=== PATIENT | female | born 1935 | race Caucasian/White ===

== ENCOUNTER 2017-04-30 18:09 | Inpatient (IN) ==
[2017-04-30] MEDS ORDERED: Ondansetron 4 MG/2 ML VIAL IVP PRN (23:59)
[2017-04-30] MEDS ORDERED: Naloxone 0.4 MG/ML INJ IVP PRN (23:59)
[2017-04-30] MEDS ORDERED: Acetaminophen 325 MG TABLET PO PRN (23:59)
[2017-05-01] MEDS ORDERED: Benzonatate 100 MG CAPSULE PO PRN
--- NOTE | 2017-05-01 00:07 | Internal Med History&Physical ---
<Jonathon Nur - Last Filed: 05/01/17 00:42> Date of Encounter: 05/01/17 Time of Encounter: 00:03 Assessment and Plan (1) Left humeral fracture Current visit: Yes Status: Acute Closed left humeral fracture involving both the greater tuberosity as well as the surgical neck. As demonstrated on left older x-ray in [facility] emergency room. Secondary to fall at home from second step of latter. Patient states it was a mechanical fall without evidence of syncopal episode. 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 We will consult orthopedics in the morning and control pain with Tylenol, Dilaudid as patient is allergic to morphine and codeine. Reaction of "feeling spacey". Qualifiers: Encounter type: initial encounter Humerus Location: proximal Fracture type: closed Fracture morphology: unspecified fracture morphology Qualified Code(s): S42.202A - Unspecified fracture of upper end of left humerus, initial encounter for closed fracture (2) Hip fracture, left Current visit: Yes Status: Acute Left hip fracture is seen on left hip x-ray at [facility] emergency room. No evidence of compartment syndrome. Distal pulses present. We will consult orthopedic surgery for evaluation and control pain as above for humeral fracture. Qualifiers: Encounter type: initial encounter Fracture type: closed Qualified Code(s) : S72.002A - Fracture of unspecified part of neck of left femur, initial encounter for closed fracture (3) COPD (chronic obstructive pulmonary disease) Current visit: Yes Status: Chronic History of COPD requiring 2 L of action at home. Patient states that it is stable with no increased shortness of breath or change in cough. Continue supplemental oxygen as needed. Qualifiers: COPD type: emphysema Emphysema type: unspecified Qualified Code(s): J43.9 - Emphysema, unspecified (4) Tremors of nervous system Current visit: Yes Status: Chronic Patient states history of essential tremors which are controlled with home Klonopin. We will continue home meds (5) Hyperthyroidism Current visit: Yes Status: Chronic History of hyperthyroid with recent thyroid ablation in March of this year. Patient states she is tolerating that well. No current complaints. We will check a TSH (6) Hypertension Current visit: Yes Status: Chronic Well-controlled at this time, will continue home meds Qualifiers: Hypertension type: essential hypertension Qualified Code(s): I10 - Essential (primary) hypertension (7) CAD (coronary artery disease) Current visit: Yes Status: Chronic Stable. No complaints of chest pain. Will hold home aspirin for possible surgical intervention tomorrow. Qualifiers: Coronary Disease-Associated Artery/Lesion type: ho-chunk artery [place] vs. transplanted heart: ho-chunk heart Associated angina: without angina Qualified Code(s): I25.10 - Atherosclerotic heart disease of ho-chunk coronary artery without angina pectoris (8) Restless leg syndrome Current visit: Yes Status: Chronic Continue home Requip. (9) DVT prophylaxis Current visit: Yes Status: Acute Will hold heparin due to possible surgical correction in the morning. Internal Medicine - H&P: HPI Chief complaint: fall, shoulder and hip pain Admitted From: Hospital to Hospital Transfer Plans for Post Hospital Care: Home History of present illness: Ms. Brunson is a 81 year old female who presents to [facility] from [facility] after sustaining a fall early this morning from the second step of a ladder while attempting to hang curtains. She states the latter moved from under her and she fell onto her left side. She denies any dizziness, lightheadedness, syncopal episodes during this and states that it was a mechanical fall. She began to experience sudden onset of pain in the left shoulder and left hip which has been constant and exacerbated with attempted movement. She has noticed decreased range of motion in those joints but denies any symptoms of numbness, tingling. She also denies any symptoms of new shortness of breath, chest pain, belly pain, new cough, weakness. She states she normally ambulates without assistance devices. She does normally use 2 L of oxygen at home for COPD. She states her only blood thinner is a daily aspirin. On review of [facility] records, patient sustained a left humeral fracture involving the surgical neck and greater tuberosity. Left hip x-ray showed mildly displaced complete basicervical left forearm fracture. Vitals were within normal limits at the time. Chest x-ray was unremarkable. CT cervical spine was unremarkable. Left knee x-ray showed degenerative changes with no acute fracture. CT head was negative for acute intracranial process. Labs showed a mildly elevated white blood cell count of 18.2 , remainder of labs grossly negative. EKG was normal sinus rhythm with a rate of 88. She was transferred to [facility] for further orthopedic management. Past Med Surg Social Fam HX - Past Medical History Medical history: asthma, COPD, GERD, hypertension, seizures, thyroid disease, TIA Psychiatric history: depression - Past Surgical History Surgical History: cholecystectomy, hysterectomy, orthopedic, other - Social History Smoking Status: Never smoker Smokeless Tobacco Status: No Alcohol use: none Drug use: none Internal Medicine - H&P: Meds Albuterol Sulfate [Ventolin Hfa] 18 gm IH Q4HR PRN 11/13/15 [History] Amlodipine Besylate/Benazepril [Lotrel 10-20 mg Capsule] 1 each PO DAILY [History] Ammonium Lactate [Lac-Hydrin Five] 113 gm TP BID 11/13/15 [History] Aspirin 81 mg PO DAILY 11/13/15 [History] Benzonatate [Tessalon] 200 mg PO TID PRN 11/13/15 [History] Budesonide/Formoterol 160/4.5 [Symbicort 160/4.5] 2 puff IH BIDR 11/13/15 [ History] Cyanocobalamin (Vitamin B-12) [Vitamin B-12] 1,000 mcg SL DAILY 11/13/15 [ History] DULoxetine [Cymbalta] 30 mg PO DAILY 11/13/15 [History] Ergocalciferol (VITAMIN D2) [Vitamin D2] 2,000 unit PO DAILY 11/13/15 [History] Fluticasone Propionate Nasal [Flonase] 50 mcg NS DAILY 11/13/15 [History] Folic Acid 0.8 mg PO DAILY 11/13/15 [History] Ipratropium [place] 30 ml NS Q6HR 11/13/15 [History] Ipratropium/Albuterol Neb [Duoneb] 3 ml IH Q6HR 11/13/15 [History] Lansoprazole [Prevacid] 30 mg PO BIDAC 11/13/15 [History] Potassium Chloride [K-Tab ER] 10 meq PO BID 11/13/15 [History] Primidone [Mysoline] 50 mg PO BID 11/13/15 [History] Ropinirole HCl [Requip] 5 mg PO HS 11/13/15 [History] Simvastatin [Zocor] 20 mg PO HS 11/13/15 [History] Tizanidine HCl [Zanaflex] 4 mg PO BID 11/13/15 [History] clonazePAM [Klonopin] 0.5 mg PO HS 11/13/15 [History] l Gasseri/B Bifidum/B Longum [[employer] Capsule] 1 each PO DAILY [History] 3 Allergy/AdvReac Type Severity Reaction Status Date / Time morphine Allergy Fainting Verified 01/13/16 07:23 propoxyphene [From Darvon] Allergy Fainting Verified 01/13/16 07:23 aspirin [ASA] AdvReac See Verified 01/13/16 07:23 Comments codeine AdvReac Fainting Verified 01/13/16 07:23 Iodinated Contrast- Oral and AdvReac "knocked Verified 01/13/16 07:23 IV Dye out" [Iodinated Contrast Media - IV Dye] pentazocine [From Talwin] AdvReac Fainting Verified 01/13/16 07:23 Sulfa (Sulfonamide AdvReac Nausea Verified 01/13/16 07:23 Antibiotics) All Systems PM: A 10-system review of systems was performed and is negative for pertinent findings except as documented above in the HPI. - Constitutional Constitutional: no anorexia, no chills, no fatigue, no fever(s), no lethargy, no malaise, no weakness - Cardiovascular Cardiovascular ROS IM: no chest pain, no dyspnea, no dyspnea on exertion, no edema, no lightheadedness, no syncope - Respiratory Respiratory: cough (Chronic), no dyspnea, no dyspnea on exertion, no wheezing, no excessive phlegm production, no change in phlegm color - Gastrointestinal Gastrointestinal: no abdominal pain, no constipation, no diarrhea, no nausea, no vomiting - Genitourinary Genitourinary: no dysuria - Musculoskeletal Musculoskeletal ROS IM: as per HPI, joint swelling, limited range of motion, no numbness, no tingling - Integumentary Integumentary IM: new lesions (Bruising) - Neurological Neurological ROS: no dizziness, no focal weakness, no frequent falls, no numbness, no tingling, no weakness - Constitutional Vitals: Temp Pulse Resp BP Pulse Ox 98.7 F 79 18 154/76 95 04/30/17 22:05 04/30/17 22:05 04/30/17 22:05 04/30/17 22:05 04/30/17 22:05 Exam: Gen.: Vitals noted. No acute distress. AAOx3. Elderly female resting comfortably in bed. Mild amount of pain HEENT: PERRL, large pupils 6 mm, equal. oropharynx clear, Normocephalic, atraumatic. Moist mucous membranes Cardiac: RRR, no murmur, +S1/S2 Pulmonary: CTA bilaterally, no wheezes, rales or rhonchi, equal chest expansion Abdomen: soft, nontender, BS noted, no guarding MSK: Unable to participate in range of motion in left shoulder and left hip secondary to pain. Joint swelling noted in left shoulder. Muscle strength intact in the left hand and arm. Right side unremarkable Extremities: no BLE edema, nontender calf, no cyanosis or clubbing Neuro: A&Ox3, states chronic numbness in lower extremities bilaterally Psych: Appropriate mood and behavior <Jann Joiner - Last Filed: 05/01/17 06:23> Date of Encounter: 05/01/17 Internal Medicine - H&P: HPI History of present illness: Ms. Brunson is a 81 year old female All Systems PM: A 10-system review of systems was performed and is negative for pertinent findings except as documented above in the HPI. - Constitutional Vitals: Temp Pulse Resp BP Pulse Ox 98.8 F 85 18 114/70 93 05/01/17 03:51 05/01/17 03:51 05/01/17 03:51 05/01/17 03:51 05/01/17 03:51 Internal Med - H&P Results - Labs CBC & Chem 7: 05/01/17 00:56 05/01/17 00:56 Labs: Short CBC 05/01/17 Range/Units 00:56 WBC 9.9 (4.3-11.1) K/mcL Hgb 11.6 (11.5-15.4) g/dL Hct 35.3 (35.3-44.9) % Plt Count 203 (140-400) K/mcL Neutrophils # 7.6 (1.6-8.9) K/mcL BMP 05/01/17 00:56 Sodium 135 L Potassium 3.9 Chloride 104 Carbon Dioxide 26 BUN 9 Creatinine 0.62 Glucose 105 H Calcium 8.4 L - Attending Attestation I have seen and examined the patient independently. I have discussed with resident physician Dr. Nur regarding the management plan. Agree with the documentation.
[2017-05-01] MEDS: *HR* OxyCODONE/APAP 5/325 TABLET PO PRN ×4 (00:11→19:30)
[2017-05-01] MEDS: 0.9 % Sodium Chloride 1,000 ML IVC SCH ×2 (00:21→11:49)
[2017-05-01 01:11] LABS: Basophils % 0.4 %; Eosinophils # 0.3 K/mcL (0.0-0.6); Eosinophils % 2.8 %; Hematocrit 35.3 % (35.3-44.9); Hemoglobin 11.6 g/dL (11.5-15.4); Immature Granulocytes % 0.5 % (0-4); Immature Platelets 2.8 % (1.1-6.1); Lymphocytes # 1.2 K/mcL (0.6-4.6); Lymphocytes % 12.1 %; Mean Corpuscular HGB Conc 32.9 g/dL (31.6-35.5); Mean Corpuscular Hemoglobin 30.1 pg (28.0-33.3); Mean Corpuscular Volume 91.5 fL (83.0-100.0); Mean Platelet Volume 9.9 fL (9.4-12.4); Monocytes # 0.8 K/mcL (0.0-1.3); Monocytes % 7.7 %; Neutrophils # 7.6 K/mcL (1.6-8.9); Platelet Count 203 K/mcL (140-400); Red Blood Count 3.86 M/mcL (3.82-4.97); Red Cell Distribution Width 14.3 % (11.5-14.5); Segmented Neutrophils % 76.5 %
[2017-05-01 01:22] LABS: BUN/Creatinine Ratio 15 (6-26); Blood Urea Nitrogen 9 mg/dL (7-20); Calcium 8.4 mg/dL (8.6-10.8); Carbon Dioxide 26 mEq/L (19-29); Chloride 104 mEq/L (98-109); Glucose 105 mg/dL (70-99); Osmolality,Calculated 279 (280-300); Potassium 3.9 mEq/L (3.5-4.5); Sodium 135 mEq/L (136-145); eGFR For African Americans > 60 (> 60); eGFR For Non-African Americans > 60 (> 60)
[2017-05-01] MEDS: rOPINIRole 3 MG, rOPINIRole 2 MG PO SCH ×2 (01:26→22:26)
[2017-05-01] MEDS: clonazePAM 0.5 MG TABLET PO SCH ×2 (01:26→22:26)
[2017-05-01] MEDS: *HR* HYDROmorphone (PF) 1 MG/ML SYRINGE IVP PRN ×4 (02:20→22:25)
[2017-05-01 06:49] LABS: Thyroid Stimulating Hormone 0.218 mcIU/mL (0.350-4.840); Triiodothyronine (T3) Free 2.56 pg/mL (1.71-3.71)
[2017-05-01] MEDS ORDERED: Lisinopril 20 MG TABLET PO SCH (09:00)
[2017-05-01] MEDS ORDERED: amLODIPine 5 MG TABLET PO SCH (09:00)
--- NOTE | 2017-05-01 12:44 | Internal Med Progress Note ---
Date of Encounter: 05/01/17 Time of Encounter: 12:44 - Constitutional Vitals: Temp Pulse Resp BP Pulse Ox 97.5 F L 87 17 111/69 94 05/01/17 11:23 05/01/17 11:23 05/01/17 11:23 05/01/17 11:23 05/01/17 11:23 Internal Medicine: Result - Labs CBC & Chem 7: 05/01/17 00:56 05/01/17 00:56 Labs: Short CBC 05/01/17 Range/Units 00:56 WBC 9.9 (4.3-11.1) K/mcL Hgb 11.6 (11.5-15.4) g/dL Hct 35.3 (35.3-44.9) % Plt Count 203 (140-400) K/mcL Neutrophils # 7.6 (1.6-8.9) K/mcL BMP 05/01/17 00:56 Sodium 135 L Potassium 3.9 Chloride 104 Carbon Dioxide 26 BUN 9 Creatinine 0.62 Glucose 105 H Calcium 8.4 L Consult Discharge Plan - Plan Referrals: Kym Valentin, REAL ESTATE INSPECTOR [Primary Care Provider] -
--- NOTE | 2017-05-01 12:46 | Event Note ---
Date of Encounter: 05/01/17 Time of Encounter: 09:00 Patient complains of pain in left upper and lower extremities. Has chronic COPD and gets short of breath with ambulation due to COPD. Denies any chest pain. No palpitations. No pedal edema reported. Orthopedics to evaluate patient later today. We will get 2-D echocardiogram for preoperative evaluation.
--- NOTE | 2017-05-01 16:15 | Orthopedic Consult Note ---
Date of Encounter: 05/01/17 Time of Encounter: 16:10 History of Present Illness Chief complaint: Left hip and shoulder pain HPI: Ms. Brunson is a 81 year old female who sustained an injury to her left hip and left shoulder in a fall in her home yesterday. This occurred off a ladder in the home. She seen initially at [facility] where x-rays revealed evidence of a left hip and a left shoulder fracture. She was transferred to [facility] for definitive management. Patient does have a significant medical history he was admitted to the hospitalist service for preoperative risk stratification prior to any potential orthopedic surgery. For complete history and physical data please refer the completed portion of the medical record. Examination reveals a uncomfortable a woman in moderate distress while lying in a hospital bed. There is marked amount of ecchymosis about the left shoulder area. She is able to move the shoulder. She does however have very limited range of motion of the left hip. Distal neurosensory exam is grossly intact. I have reviewed the x-rays of the left knee. This reveals tremendous amount of arthritic changes with osteopenia. Examination of the left hip x-rays reveals a displaced left femoral neck fracture with very severe lumbar degenerative disc and degenerative joint disease with a scoliosis. A report on the left shoulder suggests that there is a left proximal humerus fracture though these images were not sent over on disc with the patient. Impression: #1 displaced left femoral neck fracture #2 comminuted left proximal humerus fracture Recommendation: I discussed these fractures at length with the patient and the family. In regards of the left shoulder even though I do not have x-rays available for review at this time I would not recommend surgical intervention intervention at least at this time. I discussed with them that we will use a sling and evaluate the shoulder in time. If there are persistent problems with the shoulder surgical intervention can be performed at any time. In regards to the left hip however, the fracture is best treated by hemiarthroplasty to allow immediate full weightbearing ambulation. I discussed the surgical procedure as well as the potential risks and complications including not limited to bleeding , infection, blood clots, stiffness, hip dislocation and more commonly either leg length or rotational deformities. Patient and family understand and agree to proceed with surgery as outlined. Informed consent has been obtained. We will schedule her for surgery tomorrow morning. We will have to schedule her at 8:30 AM due to a echocardiogram being read no sooner than 8:00. Thank you very much for allowing me seen care for Mrs. Brunson. Sincerely, Shahid Vargas,DO Past Med Surg Social Fam HX - Past Medical History Medical history: asthma, COPD, GERD, hypertension, seizures, thyroid disease, TIA Psychiatric history: depression - Past Surgical History Surgical History: cholecystectomy, hysterectomy, orthopedic, other - Social History Smoking Status: Never smoker Smokeless Tobacco Status: No Alcohol use: none Drug use: none Medications and Allergies Albuterol Sulfate [Ventolin Hfa] 2 puff IH Q4HR PRN 11/13/15 [History] Amlodipine Besylate/Benazepril [Lotrel 10-20 mg Capsule] 1 cap PO DAILY [History] Aspirin 81 mg PO DAILY 11/13/15 [History] Benzonatate [Tessalon] 200 mg PO TID PRN 11/13/15 [History] Budesonide/Formoterol 160/4.5 [Symbicort 160/4.5] 2 puff IH BIDR 11/13/15 [ History] Cyanocobalamin (Vitamin B-12) [Vitamin B-12] 1,000 mcg SL DAILY 11/13/15 [ History] DULoxetine [Cymbalta] 30 mg PO DAILY 11/13/15 [History] Ergocalciferol (VITAMIN D2) [Vitamin D2] 2,000 unit PO DAILY 11/13/15 [History] Fluticasone Propionate Nasal [Flonase] 50 mcg NS DAILY 11/13/15 [History] Folic Acid 0.8 mg PO DAILY 11/13/15 [History] Ipratropium/Albuterol Neb [Duoneb] 3 ml IH Q6HR 11/13/15 [History] Lansoprazole [Prevacid] 30 mg PO BIDAC 11/13/15 [History] Potassium Chloride [K-Tab ER] 10 meq PO BID 11/13/15 [History] Primidone [Mysoline] 50 mg PO BID 11/13/15 [History] Ropinirole HCl [Requip] 5 mg PO HS 11/13/15 [History] Simvastatin [Zocor] 20 mg PO HS 11/13/15 [History] clonazePAM [Klonopin] 0.5 mg PO HS 11/13/15 [History] l Gasseri/B Bifidum/B Longum [[place] Capsule] 1 cap PO DAILY 06/29 [History] Amitriptyline HCl 50 mg PO HS 05/01/17 [History] Levofloxacin [Levaquin] 500 mg PO DAILY 05/01/17 [History] Loratadine [Allergy Relief] 10 mg PO DAILY 05/01/17 [History] 3 Allergy/AdvReac Type Severity Reaction Status Date / Time morphine Allergy Fainting Verified 01/13/16 07:23 propoxyphene [From Darvon] Allergy Fainting Verified 01/13/16 07:23 aspirin [ASA] AdvReac See Verified 01/13/16 07:23 Comments codeine AdvReac Fainting Verified 01/13/16 07:23 Iodinated Contrast- Oral and AdvReac "knocked Verified 01/13/16 07:23 IV Dye out" [Iodinated Contrast Media - IV Dye] pentazocine [From Talwin] AdvReac Fainting Verified 01/13/16 07:23 Sulfa (Sulfonamide AdvReac Nausea Verified 01/13/16 07:23 Antibiotics) All Systems Reviewed: A 10-system review of systems was performed and is negative for pertinent findings except as documented above in the HPI. Physical Exam - Constitutional Vitals: Temp Pulse Resp BP Pulse Ox 97.5 F L 87 17 111/69 94 05/01/17 11:23 05/01/17 11:23 05/01/17 11:23 05/01/17 11:23 05/01/17 11:23 Results - Labs Result Diagrams: 05/01/17 00:56 05/01/17 00:56 Labs: Abnormal lab results Sodium 135 mEq/L (136-145) L 05/01/17 00:56 Glucose 105 mg/dL (70-99) H 05/01/17 00:56 POC Glucose 135 (58-89) H 05/01/17 11:30 Calculated Osmolality 279 (280-300) L 05/01/17 00:56 Calcium 8.4 mg/dL (8.6-10.8) L 05/01/17 00:56 TSH 0.218 mcIU/mL (0.350-4.840) L 05/01/17 00:56 H & H 05/01/17 Range/Units 00:56 Hgb 11.6 (11.5-15.4) g/dL Hct 35.3 (35.3-44.9) % All other labs normal. - Diagnostic results Shoulder x-ray: report reviewed Hip x-ray: image reviewed Knee x-ray: image reviewed Consult Discharge Plan - Plan Referrals: Kym Valentin CNP [Primary Care Provider] -
[2017-05-01] MEDS ORDERED: NON-FORMULARY MEDICATION 1 EACH EACH (Ropinirole Hcl [Requip] 5 MG) PO SCH (21:00)
[2017-05-02] MEDS: 0.9 % Sodium Chloride 1,000 ML IVC SCH (00:43)
[2017-05-02] MEDS: *HR* OxyCODONE/APAP 5/325 TABLET PO PRN ×2 (02:31→22:03)
[2017-05-02] MEDS: *HR* HYDROmorphone (PF) 1 MG/ML SYRINGE IVP PRN (04:33)
[2017-05-02 05:20] LABS: INR 1.2; Prothrombin Time 12.6 Seconds (9.4-12.1)
[2017-05-02 05:22] LABS: Activated Partial Thrombo Time 28.9 Seconds (26.0-36.0)
--- NOTE | 2017-05-02 07:13 | Anesthesia Evaluation PreOp ---
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: Seizures, TIA Other Medical History: Diabetes Type II, Thyroid, GERD, Other (tremors) Anesthesia History: No Prior Anesthetic Complications, Past Anesthesia (Foot, Hyst, Back sx, Bladder, GB) : No Alcohol Use: none Drug use: none Medications and Allergies Albuterol Sulfate [Ventolin Hfa] 2 puff IH Q4HR PRN 11/13/15 [History] Amlodipine Besylate/Benazepril [Lotrel 10-20 mg Capsule] 1 cap PO DAILY [History] Aspirin 81 mg PO DAILY 11/13/15 [History] Benzonatate [Tessalon] 200 mg PO TID PRN 11/13/15 [History] Budesonide/Formoterol 160/4.5 [Symbicort 160/4.5] 2 puff IH BIDR 11/13/15 [ History] Cyanocobalamin (Vitamin B-12) [Vitamin B-12] 1,000 mcg SL DAILY 11/13/15 [ History] DULoxetine [Cymbalta] 30 mg PO DAILY 11/13/15 [History] Ergocalciferol (VITAMIN D2) [Vitamin D2] 2,000 unit PO DAILY 11/13/15 [History] Fluticasone Propionate Nasal [Flonase] 50 mcg NS DAILY 11/13/15 [History] Folic Acid 0.8 mg PO DAILY 11/13/15 [History] Ipratropium/Albuterol Neb [Duoneb] 3 ml IH Q6HR 11/13/15 [History] Lansoprazole [Prevacid] 30 mg PO BIDAC 11/13/15 [History] Potassium Chloride [K-Tab ER] 10 meq PO BID 11/13/15 [History] Primidone [Mysoline] 50 mg PO BID 11/13/15 [History] Ropinirole HCl [Requip] 5 mg PO HS 11/13/15 [History] Simvastatin [Zocor] 20 mg PO HS 11/13/15 [History] clonazePAM [Klonopin] 0.5 mg PO HS 11/13/15 [History] l Gasseri/B Bifidum/B Longum [[employer] Capsule] 1 cap PO DAILY 06/29 [History] Amitriptyline HCl 50 mg PO HS 05/01/17 [History] Levofloxacin [Levaquin] 500 mg PO DAILY 05/01/17 [History] Loratadine [Allergy Relief] 10 mg PO DAILY 05/01/17 [History] 3 Allergy/AdvReac Type Severity Reaction Status Date / Time morphine Allergy Fainting Verified 01/13/16 07:23 propoxyphene [From Darvon] Allergy Fainting Verified 01/13/16 07:23 aspirin [ASA] AdvReac See Verified 01/13/16 07:23 Comments codeine AdvReac Fainting Verified 01/13/16 07:23 Iodinated Contrast- Oral and AdvReac "knocked Verified 01/13/16 07:23 IV Dye out" [Iodinated Contrast Media - IV Dye] pentazocine [From Talwin] AdvReac Fainting Verified 01/13/16 07:23 Sulfa (Sulfonamide AdvReac Nausea Verified 01/13/16 07:23 Antibiotics) - Meds/Allergy Pre-op Review Medications Reviewed: Yes Allergies Reviewed: Yes Beta Blockers on Current Med List: No Anesthesia Results - Labs 05/01/17 00:56 05/01/17 00:56 Echo 05/02/2017 Ef 55-60% Mild PHTN - Imaging EKG: image reviewed (SR) Anesthesia Exam O2 Sat Weight 88.2 kg O2 Sat by Pulse Oximetry 96 O2 Sat by Pulse Oximetry 95 O2 Sat by Pulse Oximetry 95 O2 Sat by Pulse Oximetry 95 O2 Sat by Pulse Oximetry 94 Vital Signs Temp Pulse Resp BP Pulse Ox 98.7 F 79 18 154/76 95 04/30/17 22:05 04/30/17 22:05 04/30/17 22:05 04/30/17 22:05 04/30/17 22:05 Vital Signs/O2 Sat, Most Current Temp Pulse Resp BP Pulse Ox 97.9 F 72 16 133/73 96 05/02/17 03:53 05/02/17 03:53 05/02/17 03:53 05/02/17 03:53 05/02/17 03:53 Height: 5'7'' Weight: 194# NPO (# of Hours): > 8 hrs Pain Scale: 0 Pain Scale Used: Numeric (1 - 10) - HEENT Pupil (Motor): Pupils equal, EOMI Mallampati: I Teeth: Edentulous Oral Opening: Greater than 3 - TICKET DISPENSER CHANGER LOC: Oriented TICKET DISPENSER CHANGER Motor: Normal RUE, Normal LUE, Normal RLE, Normal LLE, Normal Face TICKET DISPENSER CHANGER Sensory: Normal: RUE, LUE, RLE, LLE, Face - Cardiac Rhythm: Regular Murmur: None JVD: No Carotid Bruit: No - Pulmonary Breath Sounds: bilateral Clear Respiratory Effort: Symmetrical Anesthesia Assess/Plan ASA Score: 4 Modified Michael Scale for Level of Consciousness: Cooperative, oriented, and tranquil Anesthetic Plan: General Autologous Blood: Yes Monitoring Plan: Standard Monitors Recovery Plan: PACU
[2017-05-02] MEDS ORDERED: *HR* HYDROmorphone (PF) 1 MG/ML SYRINGE IVP PRN ×2 (07:24→13:30)
[2017-05-02] MEDS ORDERED: Ondansetron 4 MG/2 ML VIAL IVP ONE ×2 (07:24→13:30)
[2017-05-02] MEDS ORDERED: *HR* Promethazine 25 MG/ML VIAL IVP PRN ×2 (07:24→13:30)
[2017-05-02] MEDS ORDERED: Albuterol 2.5 MG/3 ML NEBULIZER IH ONE (07:24)
[2017-05-02] MEDS ORDERED: *HR* Labetalol 20 MG/4 ML SYRINGE IVP PRN ×2 (07:24→13:30)
[2017-05-02] MEDS ORDERED: *HR* Midazolam HCl 2 MG/2 ML VIAL ONE (07:48)
[2017-05-02] MEDS ORDERED: *HR* FentaNYL (PF) 100 MCG/2 ML VIAL ONE (07:48)
[2017-05-02] MEDS ORDERED: *HR* Propofol 200 MG/20 ML VIAL IVP ONE (07:48)
[2017-05-02] MEDS ORDERED: Dexamethasone 4 MG/ML VIAL ONE (07:51)
[2017-05-02] MEDS ORDERED: Lidocaine -MPF 2% 2 ML VIAL ONE (07:51)
[2017-05-02] MEDS ORDERED: *HR* Succinylcholine 200 MG/10 ML VIAL IVP ONE (07:51)
[2017-05-02] MEDS ORDERED: Ondansetron 4 MG/2 ML VIAL ONE (07:51)
[2017-05-02] MEDS ORDERED: *HR* Rocuronium Bromide 50 MG/5 ML VIAL ONE (07:51)
[2017-05-02] MEDS ORDERED: ceFAZolin 2,000 MG in Water for inj. (sterile) 20 ML IVP ONE (08:30)
[2017-05-02] MEDS ORDERED: *HR* Phenylephrine 10 MG/ML VIAL ONE (09:42)
--- NOTE | 2017-05-02 11:04 | Internal Med Progress Note ---
Date of Encounter: 05/02/17 Time of Encounter: 08:35 - Assessment and plan (1) Hip fracture, left Current Visit: Yes Status: Acute Assessment and plan: Plan for surgery this morning. We will follow. She will be evaluated by physical therapy after surgery and will most likely need placement to skilled rehabilitation. Qualifiers: Encounter type: initial encounter Fracture type: closed Qualified Code(s) : S72.002A - Fracture of unspecified part of neck of left femur, initial encounter for closed fracture (2) Left humeral fracture Current Visit: Yes Status: Acute Assessment and plan: Plan for surgery later this morning. We will follow. PTOT consult post surgery. Pain control. Qualifiers: Encounter type: initial encounter Humerus Location: proximal Fracture type: closed Fracture morphology: unspecified fracture morphology Qualified Code(s): S42.202A - Unspecified fracture of upper end of left humerus, initial encounter for closed fracture (3) CAD (coronary artery disease) Current Visit: Yes Status: Chronic Assessment and plan: No chest pain. 2-D echocardiogram done today shows normal ejection fraction of 55-60%. Patient at low risk for cardiac complications from surgery. Qualifiers: Coronary Disease-Associated Artery/Lesion type: [place] artery [place] vs. transplanted heart: [place] heart Associated angina: without angina Qualified Code(s): I25.10 - Atherosclerotic heart disease of [place] coronary artery without angina pectoris (4) COPD (chronic obstructive pulmonary disease) Current Visit: Yes Status: Chronic Assessment and plan: Chronic. Not in acute exacerbation. Continue O2 supplementation. On bronchodilators as needed Qualifiers: COPD type: emphysema Emphysema type: unspecified Qualified Code(s): J43.9 - Emphysema, unspecified (5) DVT prophylaxis Current Visit: Yes Status: Acute Assessment and plan: Will place patient on subcutaneous Lovenox post surgery (6) Hypertension Current Visit: Yes Status: Chronic Qualifiers: Hypertension type: essential hypertension Qualified Code(s): I10 - Essential (primary) hypertension (7) Hyperthyroidism Current Visit: Yes Status: Chronic (8) Restless leg syndrome Current Visit: Yes Status: Chronic Assessment and plan: Continue ropinirole - Subjective Interval history: Patient is awake and alert. Awaiting surgery is planned for this morning. Denies any chest pain. Has shortness of breath which is chronic and improves with O2 supplementation. No chest pain. Continues to have pain mainly in the left upper extremity and lower extremity related to her fracture. Controlled with narcotic pain medications that she is receiving. - Constitutional Vitals: Temp Pulse Resp BP Pulse Ox 98.2 F 78 16 137/68 98 05/02/17 06:30 05/02/17 06:30 05/02/17 06:30 05/02/17 06:30 05/02/17 06:30 General appearance: Present: cooperative, A&O X 3 - Eye Eye exam: Present: EOMI, PERRL, conjuntiva pink, sclera anicteric - Respiratory Respiratory exam: Present: CTAB. Absent: accessory muscle use, rales, rhonchi, wheezes - Cardiovascular Cardiovascular exam: Present: RRR, +S1, +S2. Absent: diastolic murmur, gallop, rubs, systolic murmur - GI/Abdominal GI/Abdominal exam: Present: normal bowel sounds, soft, no peritoneal signs. Absent: distended, tenderness - Extremities Exam Extremities exam: Present: tenderness (Left upper arm and at left hip region), warm, radial pulses palpable and symmetrical. Absent: calf tenderness, cyanotic , pedal edema - Neurological Exam Neurological exam: Present: alert, oriented X3, no focal deficits. Absent: facial droop, speech deficit Internal Medicine: Result - Labs CBC & Chem 7: 05/01/17 00:56 05/01/17 00:56 - ABG Interpretation ABG results: PT/INR, D-dimer PT 12.6 Seconds (9.4-12.1) H 05/02/17 04:20 - EKG Interpretation EKG shows normal: sinus rhythm - Prior EKG Data EKG comments: 05/02/17 11:05 Normal sinus rhythm with no acute ST segment changes - Impressions Impressions Echocardiogram 05/02/17 11:21 Impressions: LVEF 55-60%. Mild concentric left ventricular hypertrophy. Normal right ventricular structure and function. Mild mitral regurgitation. Mild tricuspid regurgitation. Mild pulmonary hypertension. Aneurysmal interatrial septum. No PFO with color flow imaging. Left Ventricular Wall Motion: Rest Echo Findings All wall segments showed normal motion. Findings: Study Quality * Technically adequate exam. ECG Findings * Normal sinus rhythm. Left Ventricle * Mild concentric left ventricular hypertrophy. * Normal LV size. * LVEF 55-60%. * Indeterminate diastolic function. Reduced Med TD velocity, valsalva not performed. Right Ventricle * Normal right ventricular structure and function. Left Atrium * Normal left atrial size. Right Atrium * Normal right atrial size. Aortic Valve * No aortic regurgitation. * Aortic valve not well visualized. * No aortic stenosis. Mitral Valve * Normal mitral valve structure. * No mitral stenosis. * Mild mitral regurgitation. Tricuspid Valve * Tricuspid valve not well visualized. * Mild tricuspid regurgitation. * Estimated RA pressure is 3 mmHg. * Estimated RVSP is 39 mmHg. * Mild pulmonary hypertension. Pulmonic Valve * Pulmonic valve is not well visualized. * No pulmonic stenosis. * No pulmonic regurgitation. Pulmonary Artery * Pulmonary artery not well visualized. Aorta * Normally sized aortic root. Pericardium * There is no pericardial effusion present. Interatrial Septum * No evidence of PFO by color Doppler. * Aneurysmal interatrial septal. IVC * Normal IVC dimensions and inspiratory collapse. - VTE Documentation of Mechanical Device: Intermittent pneumatic compression device Consult Discharge Plan - Plan Referrals: Kym Valentin CNP [Primary Care Provider] -
[2017-05-02] MEDS ORDERED: Ipratropium/Albuterol Neb 3 ML IH PRN ×2 (11:07→13:30)
--- NOTE | 2017-05-02 12:01 | Operative Note ---
Date of procedure: 05/02/17 Pre-op diagnosis: Left femoral neck fracture Post-op diagnosis: same Procedure: Hemiarthroplasty left hip Implants: Cemented [place] size 14 LD/FX femoral component with a 13 mm distal centralizer , a +8 mm neck adapter and a 48 mm unipolar endoprosthesis Complications: None Anesthesia: BRYAN Surgeon: Shahid Vargas Estimated blood loss (cc): 200 Condition: stable Disposition: PACU Procedure in Detail: Gross findings: Preoperative x-rays revealed a displaced left femoral neck fracture in this 81-year-old woman. Mild arthritic changes. Mild osteopenia. Intraoperative findings were as anticipated with a somewhat comminuted left femoral neck fracture. A cemented unipolar hemiarthroplasty was performed without complicating features. After placement of the prosthesis a stable well- functioning left hip was noted. Procedure: Patient is taken the operating room and while in the hospital bed was administered general anesthesia. The patient was then transferred to the operative table. She was then placed a lateral Recumbent position with the left side up and stabilized with a lateral hip stabilizing system. All pressure points were well-padded. Left hip was now prepped and draped in normal standard fashion for surgery. A left lateral hip incision was created. Dissection was carried to the abundant adipose tissue down the level of fascia noble which is now cleared and split the length of the incision. Charnley retractor was placed. The anterior abductors were taken down off the trochanter in a subperiosteal manner utilizing electrocautery knife. These were tagged with #2 FiberWire suture for traction later repair. Capsule was then likewise taken down off the trochanter and superior capsulotomy was made at the level the acetabulum. Fracture hematoma was evacuated. Femoral neck osteotomy was made. Head was now removed from the acetabulum and sized up to probably a 48. Acetabulum was now cleaned of clot and debris with pulsatile lavage and mechanical debridement. Final trialing of the acetabulum was performed with a 48 mm head selected. Sponge was packed in the acetabulum and attention was turned to the femur. Box osteotome was utilized to open up the medial trochanter. 2 number reamer was passed on the femoral canal. Canal was then sequentially rasped up to and including a size 14. The 14 rasp was then used to ream the medial calcar. Trialing was performed and a plus 8 millimeterNeck length was selected. At this time all trial components were removed. Cement restrictor was placed distally. Canal was irrigated with pulsatile lavage and then dried with a combination of suction and sponges. At this time at the back table cement was mixed and at appropriate time the cement was instilled into the femur which was filled in a retrograde fashion and then pressurized proximally for several seconds. The prosthesis was then placed into the cement and impacted until it sat with the collar on the medial calcar. It was placed in a neutral position. Excess cement was trimmed away and compression was maintained upon the implants until the cement had fully hardened. Final cement cleanup and washout of the hip was performed. This is followed by cleaning and drying the Ray taper on the stem followed by placing the adapter and head and impacting it with 3 sharp blows of the mallet. Hip was now reduced. Stable reduction was noted. With implants in place attention was now paid to closure. Arthrotomy was closed with #2 FiberWire. The abductors were then repaired to the trochanter with the previously placed #2 FiberWire and reinforced with #2 Quill. Fascia noble was then closed with several [id number] stitch of #2 FiberWire followed by running #2 Quill. Deep subcutaneous tissue was closed with running #2 Quill. Medius obtained initially was closed with multiple inverted interrupted 2-0 undyed Vicryl followed by skin approximation with a running septic or stage III strata fixed. Skin glue was applied. Foam was now applied and secured. Patient was placed into an abduction pillow. Patient was then transferred from the operating room table in a hospital bed, awakened from anesthesia and transferred to the postanesthesia care unit in stable and satisfactory condition. All sponge and needle evidence for counts are correct. The femoral head was sent to pathology at the request of the staff.
[2017-05-02] MEDS ORDERED: Acetaminophen IV 1,000 MG/100 ML INFUS..BTL IVPB ONE (12:45)
[2017-05-02] MEDS ORDERED: Acetaminophen IV 1,000 MG/100 ML INFUS..BTL ONE (12:47)
--- NOTE | 2017-05-02 12:57 | Anesthesia Evaluation Post Op ---
Date of Encounter: 05/02/17 Time of Encounter: 12:56 - Vital Signs Vital Signs: Vital Signs/O2 Sat, Most Current Temp Pulse Resp BP Pulse Ox 99.4 F 105 24 126/79 91 05/02/17 12:41 05/02/17 12:51 05/02/17 12:51 05/02/17 12:41 05/02/17 12:51 - Lungs Lungs: Clear Ascult./Percussion - Airway Airway: Non-obstructed - Cardiovascular Regular Rate - Mental Status Mental Status: Alert & Oriented, Answers Appropriately - Pain Pain Scale: 0 Pain Scale used: Numeric (1 - 10) - Nausea Vomiting Nausea Vomiting: Not Present - Hydration Hydration: NPO, Herzog catheter - Discharge PostOp Status: Transfer Patient to floor
[2017-05-02] MEDS ORDERED: 0.9 % Sodium Chloride 1,000 ML IVC SCH (13:30)
[2017-05-02] MEDS ORDERED: Acetaminophen 325 MG TABLET PO PRN (13:30)
[2017-05-02] MEDS ORDERED: Naloxone 0.4 MG/ML INJ IVP PRN (13:30)
[2017-05-02] MEDS ORDERED: Benzonatate 100 MG CAPSULE PO PRN (13:30)
[2017-05-02] MEDS ORDERED: CeFAZolin Syringe 2,000MG/20 ML SYR IVPB SCH (16:00)
[2017-05-02] MEDS: CeFAZolin Premix DUPLEX 2,000 MG/50 ML BAG IVPB SCH (16:43)
[2017-05-02] MEDS: rOPINIRole 3 MG, rOPINIRole 2 MG PO SCH (20:17)
[2017-05-02] MEDS: clonazePAM 0.5 MG TABLET PO SCH (20:18)
[2017-05-03] MEDS: CeFAZolin Premix DUPLEX 2,000 MG/50 ML BAG IVPB SCH (00:17)
[2017-05-03] MEDS: *HR* HYDROmorphone (PF) 1 MG/ML SYRINGE IVP PRN ×2 (02:12→11:06)
[2017-05-03] MEDS: *HR* Enoxaparin 30 MG/0.3 ML SYRINGE SQ SCH ×2 (06:11→16:31)
[2017-05-03] MEDS: *HR* OxyCODONE/APAP 5/325 TABLET PO PRN ×3 (06:11→13:50)
[2017-05-03] MEDS: amLODIPine 5 MG TABLET PO SCH (08:00)
[2017-05-03] MEDS: Lisinopril 20 MG TABLET PO SCH (08:00)
[2017-05-03 08:29] LABS: Basophils % 0.2 %; Eosinophils # 0.4 K/mcL (0.0-0.6); Eosinophils % 3.1 %; Hematocrit 28.6 % (35.3-44.9); Immature Granulocytes % 0.5 % (0-4); Lymphocytes # 1.3 K/mcL (0.6-4.6); Lymphocytes % 9.5 %; Mean Corpuscular HGB Conc 31.8 g/dL (31.6-35.5); Mean Corpuscular Hemoglobin 30.1 pg (28.0-33.3); Mean Corpuscular Volume 94.7 fL (83.0-100.0); Mean Platelet Volume 10.6 fL (9.4-12.4); Monocytes % 7.3 %; Neutrophils # 11.1 K/mcL (1.6-8.9); Platelet Count 146 K/mcL (140-400); Red Blood Count 3.02 M/mcL (3.82-4.97); Red Cell Distribution Width 14.3 % (11.5-14.5); Segmented Neutrophils % 79.4 %
[2017-05-03 08:33] LABS: Hemoglobin 9.1 g/dL (11.5-15.4)
--- NOTE | 2017-05-03 13:10 | Electrocardiograph Report ---
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
[2017-05-03] MEDS ORDERED: *HR* HYDROmorphone (PF) 1 MG/ML SYRINGE IVP PRN (15:26)
--- NOTE | 2017-05-03 15:28 | Internal Med Progress Note ---
Date of Encounter: 05/03/17 Time of Encounter: 08:50 - Assessment and plan (1) Hip fracture, left Current Visit: Yes Status: Acute Assessment and plan: Status post left hip hemiarthroplasty. Postoperative day 1. Continues to be in significant amount of pain. We will increase Percocet dosage and also increased dosage of intravenous Dilaudid as needed. High risk for complications. Physical therapy evaluation pending. Patient will most likely need placement to skilled rehabilitation. Qualifiers: Encounter type: initial encounter Fracture type: closed Qualified Code(s) : S72.002A - Fracture of unspecified part of neck of left femur, initial encounter for closed fracture (2) Left humeral fracture Current Visit: Yes Status: Acute Assessment and plan: Conservative management per orthopedic recommendations. Qualifiers: Encounter type: initial encounter Humerus Location: proximal Fracture type: closed Fracture morphology: unspecified fracture morphology Qualified Code(s): S42.202A - Unspecified fracture of upper end of left humerus, initial encounter for closed fracture (3) CAD (coronary artery disease) Current Visit: Yes Status: Chronic Assessment and plan: no chest pain. We will resume aspirin Qualifiers: Coronary Disease-Associated Artery/Lesion type: [place] artery [place] vs. transplanted heart: [place] heart Associated angina: without angina Qualified Code(s): I25.10 - Atherosclerotic heart disease of [place] coronary artery without angina pectoris (4) COPD (chronic obstructive pulmonary disease) Current Visit: Yes Status: Chronic Assessment and plan: No acute exacerbation. Qualifiers: COPD type: emphysema Emphysema type: unspecified Qualified Code(s): J43.9 - Emphysema, unspecified (5) DVT prophylaxis Current Visit: Yes Status: Acute Assessment and plan: On Lovenox (6) Hypertension Current Visit: Yes Status: Chronic Assessment and plan: Blood pressure is well controlled Qualifiers: Hypertension type: essential hypertension Qualified Code(s): I10 - Essential (primary) hypertension (7) Hyperthyroidism Current Visit: Yes Status: Chronic Assessment and plan: Well controlled. (8) Restless leg syndrome Current Visit: Yes Status: Chronic Assessment and plan: Continue ropinirole (9) Chronic respiratory failure with hypoxia Current Visit: Yes Status: Chronic Assessment and plan: Continue O2 supplementation - Subjective Interval history: Patient is lying in bed. Underwent surgery yesterday and is doing well postprocedure. Does continue to have severe pain at left hip. Pain at left shoulder is much better controlled. Denies any fever or chills. No shortness of breath at this time. - Constitutional Vitals: Temp Pulse Resp BP Pulse Ox 98.2 F 100 16 113/70 94 05/03/17 12:06 05/03/17 14:00 05/03/17 12:06 05/03/17 12:06 05/03/17 14:00 General appearance: Present: cooperative, A&O X 3, answers questions appropriately Exam: Moderate distress - Neck Neck exam general surgery: Present: supple, trachea midline. Absent: lymphadenopathy - Cardiovascular Cardiovascular exam: Present: RRR, +S1, +S2. Absent: diastolic murmur, gallop, rubs, systolic murmur - GI/Abdominal GI/Abdominal exam: Present: normal bowel sounds, soft, no peritoneal signs. Absent: distended, tenderness - Extremities Exam Extremities exam: Present: tenderness (Left hip region), warm, radial pulses palpable and symmetrical. Absent: calf tenderness, cyanotic, pedal edema Additional comments: Left upper extremity in sling - Neurological Exam Neurological exam: Present: alert, oriented X3, no focal deficits. Absent: facial droop, speech deficit Internal Medicine: Result - Labs CBC & Chem 7: 05/03/17 08:22 05/01/17 00:56 Labs: Short CBC 05/03/17 Range/Units 08:22 WBC 14.0 H (4.3-11.1) K/mcL Hgb 9.1 L D (11.5-15.4) g/dL Hct 28.6 L (35.3-44.9) % Plt Count 146 (140-400) K/mcL Neutrophils # 11.1 H (1.6-8.9) K/mcL - ABG Interpretation ABG results: PT/INR, D-dimer PT 12.6 Seconds (9.4-12.1) H 05/02/17 04:20 - VTE Documentation of Mechanical Device: Venous foot pump, device Consult Discharge Plan - Plan Referrals: Kym Valentin, EMBLEM FUSER TENDER [Primary Care Provider] -
[2017-05-03] MEDS: *HR* OxyCODONE/APAP 10/325 TABLET PO PRN (16:30)
--- NOTE | 2017-05-03 18:31 | Orthopedics Progress Note ---
Date of Encounter: 05/03/17 Time of Encounter: 18:29 Subjective Principal diagnosis: Left hip and left proximal humerus fractures Interval history: Patient is postoperative day #1 from a hemiarthroplasty of her left hip. She is overall doing quite well. She is having anticipated pain in and about the hip. Shoulder feels much better. Vital signs are stable. Patient is afebrile. Hip dressing is with only minor spotting. There is some swelling in the leg. Left upper extremity shows fair amount of ecchymosis in the upper arm area. Hemoglobin is 9.1. Platelet count is normal. White cell count is mildly elevated at 14. Impression: #1. POD #1 hemiarthroplasty left hip #2. Left proximal humerus fracture Recommendation: We will continue with ambulation training and weightbearing as tolerated on the left lower extremity with total hip arthroplasty precautions being followed. In regards to her left shoulder she can start some gentle range of motion activities she can feed herself to care of herself with the arm but no heavy lifting nor weightbearing across the shoulder. He made to discharge patient to a [facility] facility for rehabilitation. Orthopedic status is stable. Can discharge at your discretion when medically stable. Objective Vital signs: Vital Signs Temp Pulse Resp BP Pulse Ox 05/03/17 16:25 98.6 F 100 15 124/75 96 05/03/17 14:00 100 94 05/03/17 12:06 98.2 F 105 16 113/70 92 05/03/17 08:27 98.6 F 98 15 127/71 96 05/03/17 04:08 97.9 F 96 17 128/78 93 05/02/17 23:59 98.1 F 96 16 130/75 94 05/02/17 19:52 98.3 F 101 18 126/73 94 Intake and Output 05/03/17 05/03/17 05/03/17 07:59 15:59 23:59 Output Total 400 / 400 Balance -400 / -400 Output: Catheter 400 / 400 Other: Blood Glucose* 187 135 - Labs CBC & BMP: 05/03/17 08:22 05/01/17 00:56 Labs: Abnormal lab results WBC 14.0 K/mcL (4.3-11.1) H 05/03/17 08:22 RBC 3.02 M/mcL (3.82-4.97) L 05/03/17 08:22 Hgb 9.1 g/dL (11.5-15.4) L D 05/03/17 08:22 Hct 28.6 % (35.3-44.9) L 05/03/17 08:22 Neutrophils # 11.1 K/mcL (1.6-8.9) H 05/03/17 08:22 PT 12.6 Seconds (9.4-12.1) H 05/02/17 04:20 Sodium 135 mEq/L (136-145) L 05/01/17 00:56 Glucose 105 mg/dL (70-99) H 05/01/17 00:56 POC Glucose 135 (58-89) H 05/03/17 16:29 Calculated Osmolality 279 (280-300) L 05/01/17 00:56 Calcium 8.4 mg/dL (8.6-10.8) L 05/01/17 00:56 TSH 0.218 mcIU/mL (0.350-4.840) L 05/01/17 00:56 - VTE Documentation of Mechanical Device: Venous foot pump, device Consult Discharge Plan - Plan Referrals: Kym Valentin, REMOTE CONTROL MIRROR INSTALLER [Primary Care Provider] -
[2017-05-03] MEDS: Ondansetron 4 MG/2 ML VIAL IVP PRN (20:26)
[2017-05-03] MEDS: clonazePAM 0.5 MG TABLET PO SCH (20:38)
[2017-05-03] MEDS: rOPINIRole 3 MG, rOPINIRole 2 MG PO SCH (20:39)
[2017-05-03] MEDS: Primidone 50 MG TABLET PO SCH (20:39)
[2017-05-03] MEDS: Budesonide/Formoterol 160/4.5 MDI IH SCH (22:24)
[2017-05-03] MEDS ORDERED: Ondansetron 4 MG/2 ML VIAL IVP ONE (23:25)
[2017-05-04 05:04] LABS: Basophils % 0.2 %; Eosinophils # 0.1 K/mcL (0.0-0.6); Eosinophils % 0.9 %; Hematocrit 28.4 % (35.3-44.9); Hemoglobin 8.9 g/dL (11.5-15.4); Immature Granulocytes % 1.1 % (0-4); Lymphocytes # 1.2 K/mcL (0.6-4.6); Lymphocytes % 7.6 %; Mean Corpuscular HGB Conc 31.3 g/dL (31.6-35.5); Mean Corpuscular Hemoglobin 29.8 pg (28.0-33.3); Mean Platelet Volume 11.4 fL (9.4-12.4); Monocytes # 1.3 K/mcL (0.0-1.3); Monocytes % 8.4 %; Neutrophils # 12.4 K/mcL (1.6-8.9); Platelet Count 136 K/mcL (140-400); Red Blood Count 2.99 M/mcL (3.82-4.97); Red Cell Distribution Width 14.3 % (11.5-14.5); Segmented Neutrophils % 81.8 %
[2017-05-04] MEDS: *HR* Enoxaparin 30 MG/0.3 ML SYRINGE SQ SCH ×2 (05:57→17:39)
[2017-05-04] MEDS: Primidone 50 MG TABLET PO SCH ×2 (09:19→21:16)
[2017-05-04] MEDS: Folic Acid 1 MG TABLET PO SCH (09:20)
[2017-05-04] MEDS: amLODIPine 5 MG TABLET PO SCH (09:20)
[2017-05-04] MEDS: Aspirin 81 MG TAB.CHEW PO SCH (09:20)
[2017-05-04] MEDS: Ondansetron 4 MG/2 ML VIAL IVP PRN (09:20)
[2017-05-04] MEDS: Lisinopril 20 MG TABLET PO SCH (09:20)
[2017-05-04] MEDS: Budesonide/Formoterol 160/4.5 MDI IH SCH ×2 (10:36→21:59)
--- NOTE | 2017-05-04 13:17 | Orthopedics Progress Note ---
Date of Encounter: 05/04/17 Time of Encounter: 13:14 Subjective Principal diagnosis: Left hip and left proximal humerus fractures Interval history: 05/03/2017 Patient is postoperative day #1 from a hemiarthroplasty of her left hip. She is overall doing quite well. She is having anticipated pain in and about the hip. Shoulder feels much better. Vital signs are stable. Patient is afebrile. Hip dressing is with only minor spotting. There is some swelling in the leg. Left upper extremity shows fair amount of ecchymosis in the upper arm area. Hemoglobin is 9.1. Platelet count is normal. White cell count is mildly elevated at 14. Impression: #1. POD #1 hemiarthroplasty left hip #2. Left proximal humerus fracture Recommendation: We will continue with ambulation training and weightbearing as tolerated on the left lower extremity with total hip arthroplasty precautions being followed. In regards to her left shoulder she can start some gentle range of motion activities she can feed herself to care of herself with the arm but no heavy lifting nor weightbearing across the shoulder. He made to discharge patient to a shelter facility for rehabilitation. Orthopedic status is stable. Can discharge at your discretion when medically stable. 05/04/2017. Patient is postop day #2 hemiarthroplasty left hip as well as nonoperative management of a left proximal humerus fracture. She is doing well. Has minimal complaints of pain. Vital signs are stable. She is afebrile. Hip dressing is stable with no change in scanty drainage. Hemoglobin is 8.9. Platelet count is slightly down to 136. Impression: #1. POD #2 hemiarthroplasty left hip #2. Left proximal humerus fracture Recommendations: Continue with weightbearing as tolerated on the left lower extremity with hip precautions being followed. The left shoulder in the used to gently as tolerated. Awaiting discharge plans to a shelter facility close to home. As long as the left hip dressing is dry and intact she can shower. She will need to follow up with me in about 2-3 weeks' time. I discussed with the patient I will be leaving tomorrow and will not be available for the next several days. The patient understands that there will be an orthopedic surgeon enterprise application architect should she need somebody on an urgent basis. Objective Vital signs: Vital Signs Temp Pulse Resp BP Pulse Ox 05/04/17 12:49 99.2 F 106 15 146/81 93 05/04/17 07:16 98.7 F 97 15 136/79 96 05/04/17 03:21 99.8 F H 100 18 110/68 94 05/03/17 23:47 99.3 F 106 18 136/65 93 05/03/17 19:30 100 F H 108 19 150/79 93 05/03/17 16:25 98.6 F 100 15 124/75 96 05/03/17 14:00 100 94 Intake and Output 05/03/17 05/04/17 05/04/17 23:59 07:59 15:59 Intake Total 600 / 600 Output Total 200 / 200 500 / 500 Balance -200 / -200 100 / 100 Intake: Oral 600 / 600 Output: Urine 500 / 500 Emesis 200 / 200 Other: # Voids 1 # Urine Diapers 1 Blood Glucose* 135 137 - Labs CBC & BMP: 05/04/17 04:10 05/01/17 00:56 Labs: Abnormal lab results WBC 15.2 K/mcL (4.3-11.1) H 05/04/17 04:10 RBC 2.99 M/mcL (3.82-4.97) L 05/04/17 04:10 Hgb 8.9 g/dL (11.5-15.4) L 05/04/17 04:10 Hct 28.4 % (35.3-44.9) L 05/04/17 04:10 MCHC 31.3 g/dL (31.6-35.5) L 05/04/17 04:10 Plt Count 136 K/mcL (140-400) L 05/04/17 04:10 Neutrophils # 12.4 K/mcL (1.6-8.9) H 05/04/17 04:10 PT 12.6 Seconds (9.4-12.1) H 05/02/17 04:20 Sodium 135 mEq/L (136-145) L 05/01/17 00:56 Glucose 105 mg/dL (70-99) H 05/01/17 00:56 POC Glucose 137 (58-89) H 05/04/17 07:20 Calculated Osmolality 279 (280-300) L 05/01/17 00:56 Calcium 8.4 mg/dL (8.6-10.8) L 05/01/17 00:56 TSH 0.218 mcIU/mL (0.350-4.840) L 05/01/17 00:56 - VTE Documentation of Mechanical Device: Venous foot pump, device Consult Discharge Plan - Plan Referrals: Kym Valentin FUR MIXER OPERATOR [Primary Care Provider] -
--- NOTE | 2017-05-04 17:03 | Internal Med Progress Note ---
Date of Encounter: 05/04/17 Time of Encounter: 17:01 - Assessment and plan (1) Hip fracture, left Current Visit: Yes Status: Acute Qualifiers: Encounter type: initial encounter Fracture type: closed Qualified Code(s) : S72.002A - Fracture of unspecified part of neck of left femur, initial encounter for closed fracture (2) Hypertension Current Visit: Yes Status: Chronic Qualifiers: Hypertension type: essential hypertension Qualified Code(s): I10 - Essential (primary) hypertension (3) CAD (coronary artery disease) Current Visit: Yes Status: Chronic Qualifiers: Coronary Disease-Associated Artery/Lesion type: [place] artery [place] vs. transplanted heart: [place] heart Associated angina: without angina Qualified Code(s): I25.10 - Atherosclerotic heart disease of [place] coronary artery without angina pectoris (4) Chronic respiratory failure with hypoxia Current Visit: Yes Status: Chronic (5) Fever Current Visit: Yes Status: Acute Qualifiers: Fever type: unspecified Qualified Code(s): R50.9 - Fever, unspecified - Subjective Interval history: Patient denies any symptoms or complaint. She has low-grade temp with white count continuously going up. Order a UA and chest x-ray and repeat WBC in the morning. She is postop day second today. - Constitutional Vitals: Temp Pulse Resp BP Pulse Ox 98.8 F 102 16 132/72 94 05/04/17 15:56 05/04/17 15:56 05/04/17 15:56 05/04/17 15:56 05/04/17 15:56 General appearance: Present: cooperative, A&O X 3, answers questions appropriately - Head Head exam: Present: atraumatic, normocephalic - Eye Eye exam: Present: PERRL, conjuntiva pink, sclera anicteric Pupils: Present: PERRL - Neck Neck exam general surgery: Present: supple, trachea midline. Absent: lymphadenopathy - Respiratory Respiratory exam: Present: CTAB. Absent: accessory muscle use, rales, rhonchi, wheezes - Cardiovascular Cardiovascular exam: Present: RRR, +S1, +S2. Absent: diastolic murmur, gallop, rubs, systolic murmur - GI/Abdominal GI/Abdominal exam: Present: normal bowel sounds, soft, no peritoneal signs. Absent: distended, tenderness - Extremities Exam Extremities exam: Present: warm, radial pulses palpable and symmetrical. Absent : calf tenderness, cyanotic, pedal edema - Neurological Exam Neurological exam: Present: CN II-XII intact, oriented X3, no focal deficits. Absent: pronater drift, facial droop, speech deficit - Skin Skin exam: Present: dry, intact Internal Medicine: Result - Labs CBC & Chem 7: 05/04/17 04:10 05/01/17 00:56 Labs: Short CBC 05/04/17 Range/Units 04:10 WBC 15.2 H (4.3-11.1) K/mcL Hgb 8.9 L (11.5-15.4) g/dL Hct 28.4 L (35.3-44.9) % Plt Count 136 L (140-400) K/mcL Neutrophils # 12.4 H (1.6-8.9) K/mcL - ABG Interpretation ABG results: PT/INR, D-dimer PT 12.6 Seconds (9.4-12.1) H 05/02/17 04:20 - VTE Documentation of Mechanical Device: Venous foot pump, device Consult Discharge Plan - Plan Referrals: Kym Valentin, SURPLUS PROPERTY DISPOSAL AGENT [Primary Care Provider] -
[2017-05-04] MEDS: clonazePAM 0.5 MG TABLET PO SCH (21:15)
[2017-05-04] MEDS: rOPINIRole 3 MG, rOPINIRole 2 MG PO SCH (21:15)
[2017-05-05 00:35] LABS: ABG Base Excess 2 mEq/L (-2 to 3); ABG HCO3 27 mEq/L (21-27); ABG Oxygen Saturation 95 % (95-98); ABG PCO2 44 mmHg (35-45); ABG PO2 75 mmHg (85-104); ABG TCO2 29 mEq/L (20-26)
[2017-05-05 04:14] LABS: Basophils % 0.2 %; Eosinophils # 0.3 K/mcL (0.0-0.6); Eosinophils % 2.4 %; Hematocrit 27.1 % (35.3-44.9); Hemoglobin 8.8 g/dL (11.5-15.4); Immature Granulocytes % 0.9 % (0-4); Lymphocytes # 1.2 K/mcL (0.6-4.6); Lymphocytes % 8.5 %; Mean Corpuscular HGB Conc 32.5 g/dL (31.6-35.5); Mean Corpuscular Hemoglobin 30.4 pg (28.0-33.3); Mean Corpuscular Volume 93.8 fL (83.0-100.0); Mean Platelet Volume 11.3 fL (9.4-12.4); Monocytes % 7.5 %; Neutrophils # 11.2 K/mcL (1.6-8.9); Platelet Count 177 K/mcL (140-400); Red Blood Count 2.89 M/mcL (3.82-4.97); Red Cell Distribution Width 14.2 % (11.5-14.5); Segmented Neutrophils % 80.5 %
[2017-05-05 04:20] LABS: Bilirubin,Urine Negative (Negative); Blood,Urine Negative (Negative); Clarity,Urine Cloudy (Clear); Color,Urine Dark Yellow (Yellow); Glucose,Urine (UA) Normal (Normal); Ketones,Urine Trace mg/dL (Negative); Leukocyte Esterase,Urine Small (Negative); Nitrite,Urine Negative (Negative); Protein,Urine 30 mg/dL (Neg-Trace); Specific Gravity,Urine 1.026 (1.010-1.025); Urobilinogen,Urine Normal (Normal)
[2017-05-05 04:23] LABS: Hyaline Casts,Urine None Seen per lpf (None-Few); Squamous Epithelial Cell,Urine Moderate per lpf (None-Few); WBC,Urine 15-30 per hpf (0-3)
[2017-05-05 04:32] LABS: Bacteria,Urine Few per hpf (None-Few); RBC,Urine 0-3 per hpf (0-3); Yeast,Urine Moderate per hpf (None Seen)
[2017-05-05 04:59] LABS: BUN/Creatinine Ratio 28 (6-26); Blood Urea Nitrogen 16 mg/dL (7-20); Calcium 8.8 mg/dL (8.6-10.8); Carbon Dioxide 28 mEq/L (19-29); Chloride 100 mEq/L (98-109); Glucose 124 mg/dL (70-99); Magnesium 1.7 mg/dL (1.6-2.6); Osmolality,Calculated 279 (280-300); Potassium 4.4 mEq/L (3.5-4.5); Sodium 133 mEq/L (136-145); eGFR For African Americans > 60 (> 60); eGFR For Non-African Americans > 60 (> 60)
[2017-05-05] MEDS: *HR* Enoxaparin 30 MG/0.3 ML SYRINGE SQ SCH (05:23)
[2017-05-05] MEDS ORDERED: clonazePAM 0.5 MG TABLET PO SCH (05:29)
--- NOTE | 2017-05-05 07:52 | Orthopedics Progress Note ---
Date of Encounter: 05/05/17 Time of Encounter: 07:50 Subjective Principal diagnosis: Left hip and left proximal humerus fractures Interval history: 05/03/2017 Patient is postoperative day #1 from a hemiarthroplasty of her left hip. She is overall doing quite well. She is having anticipated pain in and about the hip. Shoulder feels much better. Vital signs are stable. Patient is afebrile. Hip dressing is with only minor spotting. There is some swelling in the leg. Left upper extremity shows fair amount of ecchymosis in the upper arm area. Hemoglobin is 9.1. Platelet count is normal. White cell count is mildly elevated at 14. Impression: #1. POD #1 hemiarthroplasty left hip #2. Left proximal humerus fracture Recommendation: We will continue with ambulation training and weightbearing as tolerated on the left lower extremity with total hip arthroplasty precautions being followed. In regards to her left shoulder she can start some gentle range of motion activities she can feed herself to care of herself with the arm but no heavy lifting nor weightbearing across the shoulder. He made to discharge patient to a [facility] facility for rehabilitation. Orthopedic status is stable. Can discharge at your discretion when medically stable. 05/04/2017. Patient is postop day #2 hemiarthroplasty left hip as well as nonoperative management of a left proximal humerus fracture. She is doing well. Has minimal complaints of pain. Vital signs are stable. She is afebrile. Hip dressing is stable with no change in scanty drainage. Hemoglobin is 8.9. Platelet count is slightly down to 136. Impression: #1. POD #2 hemiarthroplasty left hip #2. Left proximal humerus fracture Recommendations: Continue with weightbearing as tolerated on the left lower extremity with hip precautions being followed. The left shoulder in the used to gently as tolerated. Awaiting discharge plans to a [facility] facility close to home. As long as the left hip dressing is dry and intact she can shower. She will need to follow up with me in about 2-3 weeks' time. I discussed with the patient I will be leaving tomorrow and will not be available for the next several days. The patient understands that there will be an orthopedic surgeon concrete plant laborer should she need somebody on an urgent basis. 05/05/2017. Patient is postop day 3 hemiarthroplasty left hip and nonoperative management of a left humerus fracture. Patient is doing well overall. Vital signs stable, patient is afebrile. Dressings remain stable with only scant spotting. Hemoglobin is 8.8 and stable, platelet count is normal at 177. Impression: POD #3 hemiarthroplasty left hip, nonoperative management of left proximal humerus fracture Recommendation: As noted patient to continue with weightbearing as tolerated with total hip arthroplasty precautions being followed. No wound care is required with an intact dressing. She can shower if this remains intact. I will need to see her back in about 2-3 weeks' time after discharge. From an orthopedic [place] view she is stable for discharge at any time. I will not be available after today, in the interim will be available if needed on a more urgent basis. Objective Vital signs: Vital Signs Temp Pulse Resp BP Pulse Ox 05/05/17 07:35 99.7 F H 100 19 126/73 95 05/05/17 03:36 98.2 F 104 32 123/70 93 05/04/17 23:30 98 F 103 30 109/72 93 05/04/17 15:56 98.8 F 102 16 132/72 94 05/04/17 12:49 99.2 F 106 15 146/81 93 Intake and Output 05/04/17 05/04/17 05/05/17 15:59 23:59 07:59 Intake Total 358 / 358 1150 / 1150 Output Total 200 / 200 Balance 358 / 358 950 / 950 Intake: Oral 358 / 358 1150 / 1150 Output: Urine 200 / 200 Other: Meal Lunch Percent of Meal Consumed 50% - Labs CBC & BMP: 05/05/17 03:18 05/05/17 03:18 Labs: Abnormal lab results WBC 13.9 K/mcL (4.3-11.1) H 05/05/17 03:18 RBC 2.89 M/mcL (3.82-4.97) L 05/05/17 03:18 Hgb 8.8 g/dL (11.5-15.4) L 05/05/17 03:18 Hct 27.1 % (35.3-44.9) L 05/05/17 03:18 Neutrophils # 11.2 K/mcL (1.6-8.9) H 05/05/17 03:18 PT 12.6 Seconds (9.4-12.1) H 05/02/17 04:20 ABG pO2 75 mmHg (85-104) L 05/05/17 00:28 ABG Total CO2 29 mEq/L (20-26) H 05/05/17 00:28 Sodium 133 mEq/L (136-145) L 05/05/17 03:18 BUN/Creatinine Ratio 28 (6-26) H 05/05/17 03:18 Glucose 124 mg/dL (70-99) H 05/05/17 03:18 POC Glucose 137 (58-89) H 05/04/17 07:20 Calculated Osmolality 279 (280-300) L 05/05/17 03:18 TSH 0.218 mcIU/mL (0.350-4.840) L 05/01/17 00:56 Urine Clarity Cloudy (Clear) A 05/05/17 04:10 Ur Specific [place] 1.026 (1.010-1.025) H 05/05/17 04:10 Urine Protein 30 mg/dL (Neg-Trace) H 05/05/17 04:10 Urine Ketones Trace mg/dL (Negative) H 05/05/17 04:10 Ur Leukocyte Esterase Small (Negative) H 05/05/17 04:10 Urine Microscopic WBC 15-30 per hpf (0-3) H 05/05/17 04:10 Ur Squamous Epith Cells Moderate per lpf (None-Few) H 05/05/17 04:10 Urine Yeast Moderate per hpf (None Seen) H 05/05/17 04:10 Ur Culture Indicated? YES (NO) A 05/05/17 04:10 - VTE Documentation of Mechanical Device: Venous foot pump, device Consult Discharge Plan - Plan Referrals: Kym Valentin, MANAGER STRATEGIC DEVELOPMENT [Primary Care Provider] -
[2017-05-05] MEDS: Aspirin 81 MG TAB.CHEW PO SCH (09:00)
[2017-05-05] MEDS: Folic Acid 1 MG TABLET PO SCH (09:00)
[2017-05-05] MEDS: Lisinopril 20 MG TABLET PO SCH (09:00)
[2017-05-05] MEDS: amLODIPine 5 MG TABLET PO SCH (09:01)
[2017-05-05] MEDS: Primidone 50 MG TABLET PO SCH (09:01)
[2017-05-05] MEDS ORDERED: Levofloxacin 500 MG/100 ML 500 MG/100 ML BAG IVPB SCH (10:00)
--- NOTE | 2017-05-05 10:40 | Discharge Summary ---
Date of Encounter: 05/05/17 Time of Encounter: 10:35 - Discharge Diagnosis (1) Hip fracture, left Priority: Primary Status: Acute Qualifiers: Encounter type: initial encounter Fracture type: closed Qualified Code(s) : S72.002A - Fracture of unspecified part of neck of left femur, initial encounter for closed fracture (2) Hypertension Priority: Secondary Status: Chronic Qualifiers: Hypertension type: essential hypertension Qualified Code(s): I10 - Essential (primary) hypertension (3) CAD (coronary artery disease) Priority: Secondary Status: Chronic Qualifiers: Coronary Disease-Associated Artery/Lesion type: [place] artery [place] vs. transplanted heart: [place] heart Associated angina: without angina Qualified Code(s): I25.10 - Atherosclerotic heart disease of [place] coronary artery without angina pectoris (4) Chronic respiratory failure with hypoxia Priority: Secondary Status: Chronic (5) Fever Priority: Secondary Status: Acute Qualifiers: Fever type: unspecified Qualified Code(s): R50.9 - Fever, unspecified - Discharge Medications Prescriptions: clonazePAM [Klonopin] 0.5 mg PO HS #5 tablet Home Medications: Amlodipine Besylate/Benazepril [Lotrel 10-20 mg Capsule] 1 cap PO DAILY [History] Aspirin 81 mg PO DAILY 11/13/15 [History] Benzonatate [Tessalon] 200 mg PO TID PRN 11/13/15 [History] Budesonide/Formoterol 160/4.5 [Symbicort 160/4.5] 2 puff IH BIDR 11/13/15 [ History] Cyanocobalamin (Vitamin B-12) [Vitamin B-12] 1,000 mcg SL DAILY 11/13/15 [ History] DULoxetine [Cymbalta] 30 mg PO DAILY 11/13/15 [History] Ergocalciferol (VITAMIN D2) [Vitamin D2] 2,000 unit PO DAILY 11/13/15 [History] Fluticasone Propionate Nasal [Flonase] 50 mcg NS DAILY 11/13/15 [History] Folic Acid 0.8 mg PO DAILY 11/13/15 [History] Lansoprazole [Prevacid] 30 mg PO BIDAC 11/13/15 [History] Potassium Chloride [K-Tab ER] 10 meq PO BID 11/13/15 [History] Primidone [Mysoline] 50 mg PO BID 11/13/15 [History] Ropinirole HCl [Requip] 5 mg PO HS 11/13/15 [History] Simvastatin [Zocor] 20 mg PO HS 11/13/15 [History] l Gasseri/B Bifidum/B Longum [[employer] Capsule] 1 cap PO DAILY 06/29 [History] Amitriptyline HCl 50 mg PO HS 05/01/17 [History] Levofloxacin [Levaquin] 500 mg PO DAILY 05/01/17 [History] Loratadine [Allergy Relief] 10 mg PO DAILY 05/01/17 [History] Acetaminophen [Tylenol] 650 mg PO Q6HR PRN tablet 05/05/17 [Rx] Enoxaparin [Lovenox] 30 mg SQ Q12HCO syringe 05/05/17 [Rx] Ipratropium/Albuterol Neb [Duoneb] 3 ml IH Q6HR inhsol 05/05/17 [Rx] clonazePAM [Klonopin] 0.5 mg PO HS #5 tablet 05/05/17 [Rx] Allergies/Adverse Reactions: 3 Allergy/AdvReac Type Severity Reaction Status Date / Time morphine Allergy Fainting Verified 01/13/16 07:23 propoxyphene [From Darvon] Allergy Fainting Verified 01/13/16 07:23 aspirin [ASA] AdvReac See Verified 01/13/16 07:23 Comments codeine AdvReac Fainting Verified 01/13/16 07:23 Iodinated Contrast- Oral and AdvReac "knocked Verified 01/13/16 07:23 IV Dye out" [Iodinated Contrast Media - IV Dye] pentazocine [From Talwin] AdvReac Fainting Verified 01/13/16 07:23 Sulfa (Sulfonamide AdvReac Nausea Verified 01/13/16 07:23 Antibiotics) Procedures/tests Complete & Pending: Procedures Performed prior 72 hours Category Date Time Status EV echocardiogram Routine Y 05/02/17 11:21 Completed Date of admission: 04/30/17 22:01 Primary care physician: Kym Valentin CNP Consults: 05/01/17 00:10 Consult to Nutrition [CONS] Routine Comment: Consulting Provider: NUTRITION Reason for Dietary Consult: Other Other:: weight loss Consult to Pastoral Services [CONS] Routine Comment: 05/01/17 12:27 Consult to Orthopedic Surgery [CONS] Routine Consulting Provider: Orthopedic and Sports Medicine Reason for Consult: left humerus and femur fracture Time Notified: 08:00 Call Completed: Yes 05/02/17 13:30 Consult to Occupational Therapy [CONS] Routine Comment: Evaluate, develop and implement POC Reason for Consult: ADLs, L Shoulder Pendulum Exercises Consult to Physical Therapy [CONS] Routine Comment: Evaluate, develop and implement POC Reason for Consult: Ambulation WBAT LLE, L NELLI precautions, Limited WB across L Shoulder, L Platform Walker Consult to Appraisal Analyst [CONS] Routine Reason for SW Consult: DC Discharging clinician: Thuy Chino Anticipated date of discharge: 05/05/17 - Patient Status Disposition: Transfer SNF Functional capacity at discharge: independent ambulation Overall status at discharge: patient is progressing back to baseline - Discharge Instructions Follow Up With: Kym Valentin CNP [Primary Care Provider] - - Diet and Activity Activity: as per physical therapy Diet: advance to your usual diet, low fat, low cholesterol, low salt diet Hospital course: Ms. Brunson is a 81 year old female came in with hip and femur fracture and underwent ORIF. UA showed mild leukocytes but she did have low-grade temp and elevated white count which could be an due to surgery but since it does not resolve I will put her on Levaquin for a short course of 7 days. She is constipated and will be given Dulcolax. She is okay with Tylenol for pain management. She can be discharged and follow with surgery. - Time Spent with Patient Total time spent providing and/or coordinating discharge services: Greater than 30 minutes - Constitutional Vitals: Temp Pulse Resp BP Pulse Ox 99.7 F H 100 19 126/73 95 05/05/17 07:35 05/05/17 07:35 05/05/17 07:35 05/05/17 07:35 05/05/17 07:35 General appearance: Present: cooperative, A&O X 3, answers questions appropriately - Head Head exam: Present: atraumatic, normocephalic - Eye Eye exam: Present: PERRL, conjuntiva pink, sclera anicteric Pupils: Present: PERRL - Neck Neck exam general surgery: Present: supple, trachea midline. Absent: lymphadenopathy - Respiratory Respiratory exam: Present: CTAB. Absent: accessory muscle use, rales, rhonchi, wheezes - Cardiovascular Cardiovascular exam: Present: RRR, +S1, +S2. Absent: diastolic murmur, gallop, rubs, systolic murmur - GI/Abdominal GI/Abdominal exam: Present: normal bowel sounds, soft, no peritoneal signs. Absent: distended, tenderness - Extremities Exam Extremities exam: Present: warm, radial pulses palpable and symmetrical. Absent : calf tenderness, cyanotic, pedal edema - Neurological Exam Neurological exam: Present: CN II-XII intact, oriented X3, no focal deficits. Absent: pronater drift, facial droop, speech deficit - Skin Skin exam: Present: dry, intact - VTE Documentation of Mechanical Device: Venous foot pump, device
--- NOTE | 2017-05-05 10:55 | Physician Discharge Referral ---
ExtendedCare Referral Info Provider in Charge: zain Provider in Charge after Transfer: PCP Institutional Level of Care: Skilled - Diagnosis (1) Hip fracture, left Priority: Primary Status: Acute (2) Hypertension Status: Chronic (3) CAD (coronary artery disease) Status: Chronic (4) Chronic respiratory failure with hypoxia Status: Chronic (5) Fever Status: Acute - Transfer Medications Prescriptions: clonazePAM [Klonopin] 0.5 mg PO HS #5 tablet Home Medications: Amlodipine Besylate/Benazepril [Lotrel 10-20 mg Capsule] 1 cap PO DAILY [History] Aspirin 81 mg PO DAILY 11/13/15 [History] Benzonatate [Tessalon] 200 mg PO TID PRN 11/13/15 [History] Budesonide/Formoterol 160/4.5 [Symbicort 160/4.5] 2 puff IH BIDR 11/13/15 [ History] Cyanocobalamin (Vitamin B-12) [Vitamin B-12] 1,000 mcg SL DAILY 11/13/15 [ History] DULoxetine [Cymbalta] 30 mg PO DAILY 11/13/15 [History] Ergocalciferol (VITAMIN D2) [Vitamin D2] 2,000 unit PO DAILY 11/13/15 [History] Fluticasone Propionate Nasal [Flonase] 50 mcg NS DAILY 11/13/15 [History] Folic Acid 0.8 mg PO DAILY 11/13/15 [History] Lansoprazole [Prevacid] 30 mg PO BIDAC 11/13/15 [History] Potassium Chloride [K-Tab ER] 10 meq PO BID 11/13/15 [History] Primidone [Mysoline] 50 mg PO BID 11/13/15 [History] Ropinirole HCl [Requip] 5 mg PO HS 11/13/15 [History] Simvastatin [Zocor] 20 mg PO HS 11/13/15 [History] l Gasseri/B Bifidum/B Longum [[employer] Capsule] 1 cap PO DAILY 06/29 [History] Amitriptyline HCl 50 mg PO HS 05/01/17 [History] Levofloxacin [Levaquin] 500 mg PO DAILY 05/01/17 [History] Loratadine [Allergy Relief] 10 mg PO DAILY 05/01/17 [History] Acetaminophen [Tylenol] 650 mg PO Q6HR PRN tablet 05/05/17 [Rx] Enoxaparin [Lovenox] 30 mg SQ Q12HCO syringe 05/05/17 [Rx] Ipratropium/Albuterol Neb [Duoneb] 3 ml IH Q6HR inhsol 05/05/17 [Rx] clonazePAM [Klonopin] 0.5 mg PO HS #5 tablet 05/05/17 [Rx] Allergies/Adverse Reactions: 3 Allergy/AdvReac Type Severity Reaction Status Date / Time morphine Allergy Fainting Verified 01/13/16 07:23 propoxyphene [From Darvon] Allergy Fainting Verified 01/13/16 07:23 aspirin [ASA] AdvReac See Verified 01/13/16 07:23 Comments codeine AdvReac Fainting Verified 01/13/16 07:23 Iodinated Contrast- Oral and AdvReac "knocked Verified 01/13/16 07:23 IV Dye out" [Iodinated Contrast Media - IV Dye] pentazocine [From Talwin] AdvReac Fainting Verified 01/13/16 07:23 Sulfa (Sulfonamide AdvReac Nausea Verified 01/13/16 07:23 Antibiotics) - Respiratory Orders Smoking Cessation: Smoking cessation has been advised. For more information, call the [place] Tobacco Quit Line at 6-248-CYUE-NOW. - Rehabiliation Orders Rehab Orders: ROM Exercises, Evaluation for Physical Therapy, Evaluation for Occupational Therapy - Treatments Skin tear care topically daily PRN per policy, May check for fecal impaction rectally daily PRN, Fleet enema rectally every other day PRN cleansing purposes CERTIFICATION: I certify that the transfer of the above named patient to an Extended Care Facility is necessary for the continuing treatment of the diagnosis listed. The above information is true and accurate reflection of patient's current condition. Confidential - Redisclosure prohibited without a patient's written consent.
[2017-05-05 11:52] VITALS: BP 140/76
[2017-05-05] MEDS: *HR* OxyCODONE/APAP 10/325 TABLET PO PRN (13:35)
[2017-05-06] MEDS ORDERED: levoFLOXacin 500 MG TABLET PO SCH (09:00)
== END 2017-05-05 15:15 | DRG 470 ==
LOC: 3NENU 22:01
PROVIDERS: ADMIT Internal Medicine; ATTEND Internal Medicine

== ENCOUNTER 2017-11-05 22:02 | Observation (INO) ==
[2017-11-06] MEDS ORDERED: Apixaban 5 MG TABLET PO ONE (00:53)
[2017-11-06] MEDS ORDERED: clonazePAM 0.5 MG TABLET PO ONE (00:54)
[2017-11-06] MEDS ORDERED: rOPINIRole 1 MG TABLET PO ONE (00:55)
[2017-11-06] MEDS ORDERED: Naloxone 0.4 MG/ML INJ IVP PRN (01:19)
--- NOTE | 2017-11-06 01:36 | Internal Med History&Physical ---
Date of Encounter: 11/06/17 Time of Encounter: 00:30 Internal Medicine - H&P: HPI Chief complaint: Chest pain Admitted From: Home Plans for Post Hospital Care: Home History of present illness: Ms. Brunson is a 82 year old female transferred from [facility] for chest pain. Past medical history is significant for COPD, incontinence, paroxysmal A. 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 Patient has chest pain this afternoon, acute onset, onset at rest, located on left side chest, sharp and with pressure feeling, no radiation. Pain is intermittent, lasts for several minutes. Patient denies nausea, vomiting, or diaphoresis. Patient has chronic shortness of breath due to COPD. She needs home oxygen. She said her shortness of breath level is at her baseline. Patient was a found d-dimer positive in [facility]. Patient is allergic to IV contrast, she was transferred to our hospital for VQ scan. Past Med Surg Social Fam HX - Past Medical History Medical history: atrial fibrillation, COPD, GERD, hyperlipidemia, hypertension, seizures, thyroid disease, TIA, other Psychiatric history: anxiety, depression - Past Surgical History Surgical History: cholecystectomy, hysterectomy, orthopedic, other - Social History Smoking Status: Former smoker Smokeless Tobacco Status: No Alcohol use: none Drug use: none - Family History Mother History Unknown: Yes Internal Medicine - H&P: Meds Budesonide/Formoterol 160/4.5 [Symbicort 160/4.5] 2 puff IH BIDR 11/13/15 [ History] Cyanocobalamin (Vitamin B-12) [Vitamin B-12] 500 mcg SL DAILY 11/13/15 [History] Ergocalciferol (VITAMIN D2) [Vitamin D2] 2,000 unit PO DAILY 11/13/15 [History] Lansoprazole [Prevacid] 30 mg PO BIDAC 11/13/15 [History] Primidone [Mysoline] 50 mg PO BID 11/13/15 [History] Ropinirole HCl [Requip] 5 mg PO HS 11/13/15 [History] Simvastatin [Zocor] 40 mg PO HS 11/13/15 [History] Amitriptyline HCl 50 mg PO HS 05/01/17 [History] Loratadine [Allergy Relief] 10 mg PO DAILY 05/01/17 [History] Ipratropium/Albuterol Neb [Duoneb] 3 ml IH Q6HR inhsol 05/05/17 [Rx] clonazePAM [Klonopin] 0.5 mg PO HS #5 tablet 05/05/17 [Rx] Apixaban [Eliquis] 5 mg PO BID 11/05/17 [History] Bethanechol Chloride [Urecholine] 10 mg PO BID 11/05/17 [History] Magnesium Oxide [Magnesium] 400 mg PO BID 11/05/17 [History] Metoprolol Succinate [Toprol Xl] 25 mg PO DAILY 11/05/17 [History] Acetaminophen [Tylenol] 325 mg PO Q6HR PRN 11/06/17 [History] Folic Acid 400 mcg PO DAILY 11/06/17 [History] Loperamide [Imodium] 2 mg PO QID PRN 11/06/17 [History] Tamsulosin HCl [Flomax] 0.4 mg PO DAILY 11/06/17 [History] 3 Allergy/AdvReac Type Severity Reaction Status Date / Time morphine Allergy Fainting Verified 11/05/17 19:24 propoxyphene [From Darvon] Allergy Fainting Verified 11/05/17 19:24 aspirin [ASA] AdvReac See Verified 11/05/17 19:24 Comments codeine AdvReac Fainting Verified 11/05/17 19:24 Iodinated Contrast- Oral and AdvReac "knocked Verified 11/05/17 19:24 IV Dye out" [Iodinated Contrast Media - IV Dye] pentazocine [From Talwin] AdvReac Fainting Verified 11/05/17 19:24 Sulfa (Sulfonamide AdvReac Nausea Verified 11/05/17 19:24 Antibiotics) All Systems PM: A 10-system review of systems was performed and is negative for pertinent findings except as documented above in the HPI. - Constitutional Vitals: Temp Pulse Resp BP Pulse Ox 98.1 F 97 16 156/87 99 11/06/17 00:06 11/06/17 00:06 11/06/17 00:06 11/06/17 00:06 11/06/17 00:29 General appearance: Present: A&O X 3, no acute distress, answers questions appropriately - Head Head exam: Present: atraumatic, normocephalic - Eye Eye exam: Present: PERRL, conjuntiva pink, sclera anicteric Pupils: Present: PERRL - Neck Neck exam general surgery: Present: supple, trachea midline. Absent: lymphadenopathy - Respiratory Respiratory exam: Present: CTAB. Absent: accessory muscle use, rales, rhonchi, wheezes - Cardiovascular Cardiovascular exam: Present: RRR, +S1, +S2. Absent: diastolic murmur, gallop, rubs, systolic murmur - GI/Abdominal GI/Abdominal exam: Present: normal bowel sounds, soft, no peritoneal signs. Absent: distended, tenderness - Extremities Exam Extremities exam: Present: warm, radial pulses palpable and symmetrical. Absent : calf tenderness, cyanotic, pedal edema - Neurological Exam Neurological exam: Present: CN II-XII intact, oriented X3, no focal deficits. Absent: pronater drift, facial droop, speech deficit - Skin Skin exam: Present: dry, intact Internal Med - H&P Results - EKG Data -: EKG Interpreted by Myself EKG shows normal: sinus rhythm Rate: tachycardia - Assessment and plan (1) Anemia Current Visit: No Status: Acute Assessment and plan: Patient has chronic anemia since hip surgery. Hemoglobin is stable. Will place anemia workup. Qualifiers: Anemia type: unspecified type Qualified Code(s): D64.9 - Anemia, unspecified (2) Chest pain Current Visit: No Status: Acute Assessment and plan: Patient presented to ER with a chief complaint of chest pain, which is intermittent. Need to rule out ACS. Patient also has mild elevated d-dimer, need to rule out PE. - Continuous cardiac monitoring - Track 3 sets of troponin - Echocardiogram - VQ scan in a.m. Qualifiers: Chest pain type: unspecified Qualified Code(s): R07.9 - Chest pain, unspecified (3) DVT prophylaxis Current Visit: No Status: Acute Assessment and plan: Patient is on Eliquis (4) Elevated d-dimer Current Visit: No Status: Acute Assessment and plan: We will do VQ scan in the morning. Also order Doppler [place] bilaterally to rule out DVT (5) Stool guaiac positive Current Visit: No Status: Acute Assessment and plan: Patient has stable hemoglobin. Her chief complaint to the ER is chest pain. No signs of active bleeding. - We will continue Eliquis at this point. - Closely monitor hemoglobin and vitals - If hemoglobin drop significantly or any signs of active GI bleeding, may consider GI consult. (6) CAD (coronary artery disease) Current Visit: No Status: Chronic Assessment and plan: We will continue home medications. Rule out ACS as described above Qualifiers: Coronary Disease-Associated Artery/Lesion type: [place] artery [place] vs. transplanted heart: [place] heart Associated angina: without angina Qualified Code(s): I25.10 - Atherosclerotic heart disease of [place] coronary artery without angina pectoris (7) COPD (chronic obstructive pulmonary disease) Current Visit: No Status: Chronic Assessment and plan: Stable, no signs of exacerbation, continue home medications Qualifiers: COPD type: emphysema Emphysema type: unspecified Qualified Code(s): J43.9 - Emphysema, unspecified (8) Hypertension Current Visit: No Status: Chronic Assessment and plan: Continue home medications. Qualifiers: Hypertension type: essential hypertension Qualified Code(s): I10 - Essential (primary) hypertension (9) Restless leg syndrome Current Visit: No Status: Chronic Assessment and plan: Continue home medication Requip (10) Tremors of nervous system Current Visit: No Status: Chronic Assessment and plan: Essential tremor. Continue home medication primidone (11) A-fib Current Visit: Yes Status: Chronic Assessment and plan: Paroxysmal A. fib, right now sinus rhythm. Continue home medications for rate control. Continue Eliquis for anticoagulation Qualifiers: Atrial fibrillation type: paroxysmal Qualified Code(s): I48.0 - Paroxysmal atrial fibrillation - Time Spent With Patient Total time spent is greater than 50% in coordination of care (as documented) at patient's floor/unit and/or counseling patient: 40min Greater than 35 minutes
[2017-11-06 02:30] LABS: Basophils # 0.1 K/mcL (0.0-0.2); Basophils % 0.5 %; Eosinophils # 0.6 K/mcL (0.0-0.6); Eosinophils % 5.6 %; Hematocrit 27.8 % (35.3-44.9); Hemoglobin 8.8 g/dL (11.5-15.4); Immature Granulocytes % 0.4 % (0-4); Lymphocytes # 3.3 K/mcL (0.6-4.6); Lymphocytes % 31.6 %; Mean Corpuscular HGB Conc 31.7 g/dL (31.6-35.5); Mean Corpuscular Hemoglobin 26.8 pg (28.0-33.3); Mean Corpuscular Volume 84.8 fL (83.0-100.0); Monocytes # 0.8 K/mcL (0.0-1.3); Monocytes % 7.3 %; Neutrophils # 5.7 K/mcL (1.6-8.9); Platelet Count 310 K/mcL (140-400); Red Blood Count 3.28 M/mcL (3.82-4.97); Red Cell Distribution Width 16.3 % (11.5-14.5); Segmented Neutrophils % 54.6 %
[2017-11-06 02:50] LABS: BUN/Creatinine Ratio 19 (6-26); Blood Urea Nitrogen 9 mg/dL (8-23); Calcium 8.9 mg/dL (8.6-10.3); Carbon Dioxide 29 mEq/L (23-29); Chloride 102 mEq/L (98-107); Glucose 110 mg/dL (70-105); Magnesium 1.9 mg/dL (1.6-2.6); Osmolality,Calculated 277 (280-300); Phosphorous 3.8 mg/dL (2.7-4.5); Potassium 3.7 mEq/L (3.5-5.1); Sodium 134 mEq/L (136-145); eGFR For African Americans > 60 (> 60); eGFR For Non-African Americans > 60 (> 60)
[2017-11-06 02:53] LABS: % Iron Saturation 5 % (15-50); Ferritin 12 ng/ml (10-120); Iron 16 mcg/dL (50-170); Transferrin 245 mg/dL (203-362)
[2017-11-06 03:23] LABS: Folate > 22.3 ng/mL (3.0-16.0); Vitamin B12 > 1500 pg/mL (250-1100)
[2017-11-06] MEDS: Ipratropium/Albuterol Neb 3 ML IH SCH ×4 (03:41→22:49)
[2017-11-06] MEDS: Acetaminophen 325 MG TABLET PO PRN ×2 (08:25→21:44)
[2017-11-06] MEDS: Budesonide/Formoterol 160/4.5 MDI IH SCH ×2 (10:26→22:49)
--- NOTE | 2017-11-06 10:33 | Internal Med Progress Note ---
Date of Encounter: 11/06/17 Time of Encounter: 10:32 - Assessment and plan (1) Chest pain Current Visit: No Status: Acute Assessment and plan: Patient presented to ER with a chief complaint of chest pain, which is intermittent. Need to rule out ACS. Patient also has mild elevated d-dimer, need to rule out PE. - Continuous cardiac monitoring -Troponin Negative 3 - Echocardiogram Impressions: LVEF 50%. Mild increased LV wall thickness. Indeterminate diastolic function. Normal right ventricular structure and function. Mild mitral regurgitation. No pulmonary hypertension. Aneurysmal interatrial septum. No interatrial shunting by Color-flow. We will consult cardiology concerning-Aneurysmal interatrial septum-patient may require a DMITRIY - VQ scan low probability for PE Qualifiers: Chest pain type: unspecified Qualified Code(s): R07.9 - Chest pain, unspecified (2) COPD (chronic obstructive pulmonary disease) Current Visit: No Status: Chronic Assessment and plan: Stable, no signs of exacerbation, continue home medications Qualifiers: COPD type: emphysema Emphysema type: unspecified Qualified Code(s): J43.9 - Emphysema, unspecified (3) Tremors of nervous system Current Visit: No Status: Chronic Assessment and plan: Essential tremor. Continue home medication primidone (4) Hypertension Current Visit: No Status: Chronic Assessment and plan: Continue home medications. Stable at this time Qualifiers: Hypertension type: essential hypertension Qualified Code(s): I10 - Essential (primary) hypertension (5) DVT prophylaxis Current Visit: No Status: Acute Assessment and plan: Patient is on Eliquis (6) CAD (coronary artery disease) Current Visit: No Status: Chronic Assessment and plan: We will continue home medications. Continue with beta felipa and statin Qualifiers: Coronary Disease-Associated Artery/Lesion type: [place] artery [place] vs. transplanted heart: [place] heart Associated angina: without angina Qualified Code(s): I25.10 - Atherosclerotic heart disease of [place] coronary artery without angina pectoris (7) Restless leg syndrome Current Visit: No Status: Chronic Assessment and plan: Continue home medication Requip (8) Anemia Current Visit: No Status: Acute Assessment and plan: Patient has chronic anemia since hip surgery. Hemoglobin is stable at this time we will continue to monitor Anemia workup, awaiting results Qualifiers: Anemia type: unspecified type Qualified Code(s): D64.9 - Anemia, unspecified (9) Stool guaiac positive Current Visit: No Status: Acute Assessment and plan: Patient has stable hemoglobin. Her chief complaint to the ER is chest pain. No signs of active bleeding. - We will continue Eliquis at this point. - Closely monitor hemoglobin and vitals - If hemoglobin drop significantly or any signs of active GI bleeding, may consider GI consult. (10) Elevated d-dimer Current Visit: No Status: Acute Assessment and plan: VQ scan low probability for PE, venous Dopplers negative for DVT (11) A-fib Current Visit: Yes Status: Chronic Assessment and plan: Paroxysmal A. fib, right now sinus rhythm. Continue home medications for rate control. Continue Eliquis for anticoagulation Qualifiers: Atrial fibrillation type: paroxysmal Qualified Code(s): I48.0 - Paroxysmal atrial fibrillation - Time Spent With Patient Total time spent is greater than 50% in coordination of care (as documented) at patient's floor/unit and/or counseling patient: - Subjective Interval history: Patient seen and examined at bedside. She has returned from VQ scan - Denies any pain or discomfort - Constitutional Vitals: Temp Pulse Resp BP Pulse Ox 98.3 F 93 18 158/88 95 11/06/17 07:58 11/06/17 07:58 11/06/17 10:26 11/06/17 07:58 11/06/17 10:26 General appearance: Present: A&O X 3, no acute distress, answers questions appropriately - Head Head exam: Present: atraumatic, normocephalic - Eye Eye exam: Present: PERRL, conjuntiva pink, sclera anicteric Pupils: Present: PERRL - Neck Neck exam general surgery: Present: supple, trachea midline. Absent: lymphadenopathy - Respiratory Respiratory exam: Present: CTAB. Absent: accessory muscle use, rales, rhonchi, wheezes - Cardiovascular Cardiovascular exam: Present: RRR, +S1, +S2. Absent: diastolic murmur, gallop, rubs, systolic murmur - GI/Abdominal GI/Abdominal exam: Present: normal bowel sounds, soft, no peritoneal signs. Absent: distended, tenderness - Extremities Exam Extremities exam: Present: warm, radial pulses palpable and symmetrical. Absent : calf tenderness, cyanotic, pedal edema - Neurological Exam Neurological exam: Present: CN II-XII intact, oriented X3, no focal deficits. Absent: pronater drift, facial droop, speech deficit - Skin Skin exam: Present: dry, intact Internal Medicine: Result - Labs CBC & Chem 7: 11/06/17 02:02 11/06/17 02:02 Labs: Short CBC 11/06/17 Range/Units 02:02 WBC 10.4 (4.3-11.1) K/mcL Hgb 8.8 L (11.5-15.4) g/dL Hct 27.8 L (35.3-44.9) % Plt Count 310 (140-400) K/mcL Neutrophils # 5.7 (1.6-8.9) K/mcL BMP 11/06/17 02:02 Sodium 134 L Potassium 3.7 Chloride 102 Carbon Dioxide 29 BUN 9 Creatinine 0.47 L Glucose 110 H Calcium 8.9 Cardiac Enzymes 11/06/17 11/06/17 Range/Units 02:02 07:56 Troponin I < 0.03 < 0.03 (< 0.04) ng/mL - Impressions Impressions Pulmonary Perfusion Imaging 11/06/17 01:26 IMPRESSION: Low probability for pulmonary embolus. D/ / Jamil Baptiste MD / Jamil Baptiste MD Interpreting Provider: Jamil Baptiste MD Consult Discharge Plan - Plan Referrals: Jamil Reece MD [Primary Care Provider] -
[2017-11-06] MEDS: Loratadine 10 MG TABLET PO SCH (10:56)
[2017-11-06] MEDS: Apixaban 5 MG TABLET PO SCH ×2 (10:57→21:45)
[2017-11-06] MEDS: Metoprolol XL (24 HR) Succ 25 MG TAB.ER.24H PO SCH (10:57)
[2017-11-06] MEDS: Primidone 50 MG TABLET PO SCH ×2 (10:57→21:45)
[2017-11-06] MEDS: Magnesium Oxide 400 MG TABLET PO SCH ×2 (11:00→21:44)
[2017-11-06] MEDS ORDERED: rOPINIRole 1 MG TABLET PO SCH (21:00)
[2017-11-06] MEDS ORDERED: clonazePAM 0.5 MG TABLET PO SCH (21:00)
[2017-11-07] MEDS: Ipratropium/Albuterol Neb 3 ML IH SCH ×3 (03:43→15:52)
[2017-11-07] MEDS: Primidone 50 MG TABLET PO SCH (10:15)
[2017-11-07] MEDS: Metoprolol XL (24 HR) Succ 25 MG TAB.ER.24H PO SCH (10:15)
[2017-11-07] MEDS: Apixaban 5 MG TABLET PO SCH (10:15)
[2017-11-07] MEDS: Loratadine 10 MG TABLET PO SCH (10:15)
[2017-11-07] MEDS: Magnesium Oxide 400 MG TABLET PO SCH (10:22)
[2017-11-07] MEDS: Budesonide/Formoterol 160/4.5 MDI IH SCH (10:46)
[2017-11-07 11:34] LABS: Basophils # 0.1 K/mcL (0.0-0.2); Basophils % 0.4 %; Eosinophils # 0.4 K/mcL (0.0-0.6); Eosinophils % 3.3 %; Hematocrit 27.9 % (35.3-44.9); Hemoglobin 8.8 g/dL (11.5-15.4); Immature Granulocytes % 0.4 % (0-4); Lymphocytes # 3.6 K/mcL (0.6-4.6); Lymphocytes % 30.9 %; Mean Corpuscular HGB Conc 31.5 g/dL (31.6-35.5); Mean Corpuscular Hemoglobin 26.2 pg (28.0-33.3); Mean Platelet Volume 9.8 fL (9.4-12.4); Monocytes # 0.8 K/mcL (0.0-1.3); Monocytes % 6.8 %; Neutrophils # 6.7 K/mcL (1.6-8.9); Platelet Count 297 K/mcL (140-400); Red Blood Count 3.36 M/mcL (3.82-4.97); Red Cell Distribution Width 16.4 % (11.5-14.5); Segmented Neutrophils % 58.2 %
[2017-11-07 11:54] LABS: BUN/Creatinine Ratio 19 (6-26); Blood Urea Nitrogen 10 mg/dL (8-23); Calcium 8.9 mg/dL (8.6-10.3); Carbon Dioxide 28 mEq/L (23-29); Chloride 100 mEq/L (98-107); Glucose 128 mg/dL (70-105); Osmolality,Calculated 277 (280-300); Potassium 3.9 mEq/L (3.5-5.1); Sodium 133 mEq/L (136-145); eGFR For African Americans > 60 (> 60); eGFR For Non-African Americans > 60 (> 60)
[2017-11-07 16:20] VITALS: BP 156/88
--- NOTE | 2017-11-07 17:17 | Discharge Summary ---
- NOTES TO OUTPATIENT PROVIDER Notes to Outpatient Provider: Troponins were negative 3-suspect musculoskeletal. Echo. LVEF 50%. Mild increased LV wall thickness. Indeterminate diastolic function. Normal right ventricular structure and function. Mild mitral regurgitation. No pulmonary hypertension. Aneurysmal interatrial septum. No interatrial shunting by Color-flow. Patient to follow- up with Dr. Peters 11/23/2017. Initiated on iron. . Orders not resulted at time of discharge: Pending orders 11/07/17 10:14 EKG [ECG 12 lead ECG] [ECG] Routine 11/07/17 16:27 EKG [ECG 12 lead ECG] [ECG] Routine Date of Encounter: 11/07/17 Time of Encounter: 17:15 - Discharge Diagnosis (1) Chest pain Priority: Primary Status: Acute Qualifiers: Chest pain type: unspecified Qualified Code(s): R07.9 - Chest pain, unspecified (2) COPD (chronic obstructive pulmonary disease) Priority: Secondary Status: Chronic Qualifiers: COPD type: emphysema Emphysema type: unspecified Qualified Code(s): J43.9 - Emphysema, unspecified (3) Tremors of nervous system Priority: Secondary Status: Chronic (4) Hypertension Priority: Secondary Status: Chronic Qualifiers: Hypertension type: essential hypertension Qualified Code(s): I10 - Essential (primary) hypertension (5) CAD (coronary artery disease) Priority: Secondary Status: Chronic Qualifiers: Coronary Disease-Associated Artery/Lesion type: [place] artery [place] vs. transplanted heart: [place] heart Associated angina: without angina Qualified Code(s): I25.10 - Atherosclerotic heart disease of [place] coronary artery without angina pectoris (6) Restless leg syndrome Priority: Secondary Status: Chronic (7) Anemia Priority: Secondary Status: Acute Qualifiers: Anemia type: unspecified type Qualified Code(s): D64.9 - Anemia, unspecified (8) Stool guaiac positive Priority: Secondary Status: Acute (9) Elevated d-dimer Priority: Secondary Status: Acute (10) A-fib Priority: Secondary Status: Chronic Qualifiers: Atrial fibrillation type: paroxysmal Qualified Code(s): I48.0 - Paroxysmal atrial fibrillation Hospital course: Ms. Brunson is a 82 year old female past medical history of atrial fibrillation anemia asthma COPD hyperlipidemia GERD hypertension seizures thyroid disease TIAs history of total colectomy with colostomy. Patient presented to the emergency department after experiencing left-sided sharp chest pain 10 out of 10 nonradiating at rest. There are no associated symptoms, there are no aggravating factors. Patient's last cardiac workup was 10 years ago with a Which was negative according to patient. In August patient was diagnosed with atrial fibrillation as well as undergoing a colectomy for gangrene of intestines. She was started on Elquis she has not had any cardioversion or ablation or any other procedure. She has followed up with cardiology at [facility] she does have an appointment with Dr. Nick Peters with [facility] on 11/23/2017 Pain was relieved with Tylenol in the ER. In the emergency department patient was found to have an elevated d-dimer and stool was guaiac positive. Lab work did show anemia which appears to be chronic. She was admitted for further workup and evaluation. Patient did undergo a VQ scan which was no probability for PE troponins were negative [address]- T wave abnormalities. Echocardiogram with EF of 60% aneurysmal intra-atrial septum-venous duplex was negative for any DVT. Repeat Hemoccult did show negative. Family does express that patient with new colostomy she has had some skin breakdown and bleeding around the colostomy suspect that this bleeding has been mixing with the stool. Hemoglobin has been stable during this admission. Anemia workup does show a low iron which we will initiate. Patient already on B12 and folate which we will continue. Patient denies any chest pain during this admission she does have some reproducible pain upon palpation of chest. I did discuss this case with Drs. Ibrahim who agrees the patient can follow up with cardiology as outpatient. I discussed findings with the patient and her daughter who are at bedside advised to follow up with Dr. Peters as well as PCP. I did give patient a prescription for iron. Advised patient take her medications as prescribed. Patient verbalized understanding she is hemodynamically stable and ready for discharge. Discharge discussed with: patient - Time Spent with Patient Total time spent providing and/or coordinating discharge services: - Discharge Medications Prescriptions: Ferrous Sulfate [Iron] 325 mg PO DAILY #30 tablet Home Medications: Budesonide/Formoterol 160/4.5 [Symbicort 160/4.5] 2 puff IH BIDR 11/13/15 [ History] Cyanocobalamin (Vitamin B-12) [Vitamin B-12] 500 mcg SL DAILY 11/13/15 [History] Ergocalciferol (VITAMIN D2) [Vitamin D2] 2,000 unit PO DAILY 11/13/15 [History] Primidone [Mysoline] 50 mg PO BID 11/13/15 [History] Ropinirole HCl [Requip] 5 mg PO HS 11/13/15 [History] Simvastatin [Zocor] 40 mg PO HS 11/13/15 [History] Amitriptyline HCl 50 mg PO HS 05/01/17 [History] Loratadine [Allergy Relief] 10 mg PO DAILY 05/01/17 [History] Ipratropium/Albuterol Neb [Duoneb] 3 ml IH Q6HR inhsol 05/05/17 [Rx] clonazePAM [Klonopin] 0.5 mg PO HS #5 tablet 05/05/17 [Rx] Apixaban [Eliquis] 5 mg PO BID 11/05/17 [History] Bethanechol Chloride [Urecholine] 10 mg PO BID 11/05/17 [History] Magnesium Oxide [Magnesium] 400 mg PO BID 11/05/17 [History] Metoprolol Succinate [Toprol Xl] 25 mg PO DAILY 11/05/17 [History] Acetaminophen [Tylenol] 325 mg PO Q6HR PRN 11/06/17 [History] Folic Acid 0.4 mg PO DAILY 11/06/17 [History] Loperamide [Imodium] 2 mg PO QID PRN 11/06/17 [History] Pantoprazole Sodium [Protonix] 20 mg PO DAILY 11/06/17 [History] Tamsulosin HCl [Flomax] 0.4 mg PO DAILY 11/06/17 [History] Ferrous Sulfate [Iron] 325 mg PO DAILY #30 tablet 11/07/17 [Rx] Allergies/Adverse Reactions: 3 Allergy/AdvReac Type Severity Reaction Status Date / Time morphine Allergy Fainting Verified 11/05/17 19:24 propoxyphene [From Darvon] Allergy Fainting Verified 11/05/17 19:24 aspirin [ASA] AdvReac See Verified 11/05/17 19:24 Comments codeine AdvReac Fainting Verified 11/05/17 19:24 Iodinated Contrast- Oral and AdvReac "knocked Verified 11/05/17 19:24 IV Dye out" [Iodinated Contrast Media - IV Dye] pentazocine [From Talwin] AdvReac Fainting Verified 11/05/17 19:24 Sulfa (Sulfonamide AdvReac Nausea Verified 11/05/17 19:24 Antibiotics) Date of admission: 11/05/17 23:38 Primary care physician: Jamil Reece MD Discharging clinician: Cheryl Velazquez Anticipated date of discharge: 11/07/17 - Constitutional Vitals: Temp Pulse Resp BP Pulse Ox 98.5 F 98 14 156/88 97 11/07/17 16:19 11/07/17 16:19 11/07/17 16:19 11/07/17 16:19 11/07/17 16:19 General appearance: Present: A&O X 3, no acute distress, answers questions appropriately - Head Head exam: Present: atraumatic, normocephalic - Eye Eye exam: Present: PERRL, conjuntiva pink, sclera anicteric Pupils: Present: PERRL - Neck Neck exam general surgery: Present: supple, trachea midline. Absent: lymphadenopathy - Respiratory Respiratory exam: Present: CTAB. Absent: accessory muscle use, rales, rhonchi, wheezes - Cardiovascular Cardiovascular exam: Present: RRR, +S1, +S2. Absent: diastolic murmur, gallop, rubs, systolic murmur - GI/Abdominal GI/Abdominal exam: Present: normal bowel sounds, soft, no peritoneal signs. Absent: distended, tenderness - Extremities Exam Extremities exam: Present: warm, radial pulses palpable and symmetrical. Absent : calf tenderness, cyanotic, pedal edema - Neurological Exam Neurological exam: Present: CN II-XII intact, oriented X3, no focal deficits. Absent: pronater drift, facial droop, speech deficit - Skin Skin exam: Present: dry, intact - Patient Status Disposition: Home, Self-Care Condition: Good Functional capacity at discharge: independent ambulation Overall status at discharge: patient is back to baseline - Discharge Instructions Instructions: Atrial Fibrillation (DC), Chest Pain (DC), Anemia (GEN) Follow Up With: Jamil Reece MD [Primary Care Provider] - Nick Peters MD [Partnered Physician] - - Diet and Activity Activity: other Diet: regular diet
[2017-11-07] MEDS ORDERED: BETHANECHOL CHLORIDE 10 MG PO SCH (21:00)
[2017-11-08] MEDS ORDERED: Cyanocobalamin (B-12) 1,000 MCG TABLET PO SCH (09:00)
[2017-11-08] MEDS ORDERED: NON-FORMULARY MEDICATION 1 EACH EACH (Folic Acid [Folic Acid] 0.4 MG) PO SCH (09:00)
[2017-11-08] MEDS ORDERED: Cholecalciferol (D-3) 1,000 UNIT TABLET PO SCH (09:00)
--- NOTE | 2017-11-10 06:56 | Electrocardiograph Report ---
[address] [place], [place] [address] Test Date: 2017-11-07 Pat Name: Jessica Brunson Department: 113 Room: 3B24 Gender: F Verification Manager: GARY : [id number] Requested By: Cheryl Velazquez Order Number: [id number] Reading MD: Yuri Alvarado Measurements Intervals [place] Rate: 94 P: 45 ME: 161 QRS: -7 QRSD: 98 T: 57 QT: 358 QTc: 410 Interpretive Statements SINUS RHYTHM WITH PAC Electronically Signed On 11-10-2017 6:54:24 EDT by Yuri Alvarado
== END 2017-11-07 17:50 | disposition home or self-care (01) ==
LOC: 3BNU
PROVIDERS: ADMIT Internal Medicine; ATTEND Internal Medicine

== ENCOUNTER 2018-06-01 12:41 | Inpatient (IN) ==
[2018-06-01] MEDS ORDERED: Naloxone 0.4 MG/ML INJ IVP PRN (20:02)
--- NOTE | 2018-06-01 23:29 | Internal Med History&Physical ---
Date of Encounter: 06/01/18 Time of Encounter: 23:27 Internal Medicine - H&P: HPI Chief complaint: Facial Numbness History of present illness: Ms. Brunson is a 82 year old female with multiple comorbidities including previous history of stroke, hypertension, COPD on 2 L at night, coronary artery disease, hyperthyroidism, and history of seizures who initially presented to [facility] with a chief complaint of numbness to the left side of her face. Patient has been experiencing numbness to the left side of her arm over the past week. Numbness extends from the shoulder down to her hand. She states that symptoms are constant and associated with weakness noting that at times her arm feels floppy. Yesterday she noted numbness and weakness involving her entire left leg. Today she experienced numbness of the left side of her face and noted slight blurry vision in her left eye. 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 Patient states that her blood pressure has been running a little high in the 170s systolic. On arrival to [facility] patient was hemodynamically stable saturating at 94% on room air. EKG showed normal sinus rhythm. No ST or T-wave abnormalities. Initial laboratory workup obtained here was unremarkable. CT scan of the head obtained at [place] showed a mild low-density in the parietal subcortical white matter without mass or mass effect, otherwise, no evidence of an acute infarct or hemorrhage. Previous CT showed similar findings. Past Med Surg Social Fam HX - Past Medical History Medical history: atrial fibrillation, COPD, GERD, hyperlipidemia, hypertension, seizures, thyroid disease, TIA, other Additional medical history: TREMORS Psychiatric history: anxiety, depression - Past Surgical History Surgical History: cholecystectomy, hysterectomy, orthopedic, other Additional surgical history: Bladder surgery, 2 back surgeries, Rt ankle surgery, Rt bunionectomy, partial hysterectomy - Social History Smoking Status: Former smoker Smokeless Tobacco Status: No Alcohol use: none Drug use: none - Family History Mother Living Status: Hx Family Cardiac Disorders: Yes Hx Family Endocrine Disorder: Yes Father Hx Family Respiratory Disorders: Yes Hx Family Cancer: Yes Brother Hx Family Cancer: Yes Internal Medicine - H&P: Meds Budesonide/Formoterol 160/4.5 [Symbicort 160/4.5] 2 puff IH BIDR 11/13/15 [History] Ergocalciferol (VITAMIN D2) [Vitamin D2] 2,000 unit PO DAILY 11/13/15 [History] Primidone [Mysoline] 50 mg PO BID 11/13/15 [History] Ropinirole HCl [Requip] 5 mg PO HS 11/13/15 [History] Simvastatin [Zocor] 40 mg PO HS 11/13/15 [History] Amitriptyline HCl 50 mg PO HS 05/01/17 [History] clonazePAM [Klonopin] 0.5 mg PO HS #5 tablet 05/05/17 [Rx] Magnesium Oxide [Magnesium] 400 mg PO BID 11/05/17 [History] Pantoprazole Sodium [Protonix] 40 mg PO DAILY 11/06/17 [History] Rivaroxaban [Xarelto] 20 mg PO DAILY 03/09/18 [History] amLODIPine [Norvasc] 10 mg PO DAILY 03/09/18 [History] Bethanechol [Urecholine] 50 mg PO BID 03/23/18 [History] Bifidobacterium Infantis [Align] 4 mg PO DAILY 03/23/18 [History] Cranberry 500 mg PO DAILY 03/23/18 [History] Cyanocobalamin (Vitamin B-12) [Vitamin B-12] 1,000 mcg PO DAILY 03/23/18 [History] Fluticasone Propionate Nasal [Flonase] 50 mcg NS DAILY 03/23/18 [History] Metoprolol [Lopressor] 25 mg PO BID 03/23/18 [History] Omeprazole [PriLOSEC] 40 mg PO DAILY 03/23/18 [History] Albuterol Sulfate [Proair Hfa] 1 puff IH PRN PRN 06/01/18 [History] Ferrous Sulfate [Iron] 65 mg PO DAILY 06/01/18 [History] Ipratropium/Albuterol Neb [Duoneb] 3 ml IH Q6HR PRN 06/01/18 [History] Melatonin 5 mg PO HS 06/01/18 [History] Allergy/AdvReac Type Severity Reaction Status Date / Time morphine Allergy Fainting Verified 05/25/18 08:14 propoxyphene [From Darvon] Allergy Fainting Verified 05/25/18 08:14 aspirin [ASA] AdvReac See Verified 05/25/18 08:14 Comments codeine AdvReac Fainting Verified 05/25/18 08:14 gabapentin AdvReac Nausea Verified 05/25/18 08:14 Iodinated Contrast- Oral and AdvReac "knocked Verified 05/25/18 08:14 IV Dye out" [Iodinated Contrast Media - IV Dye] pentazocine [From Talwin] AdvReac Fainting Verified 05/25/18 08:14 Sulfa (Sulfonamide AdvReac Nausea Verified 05/25/18 08:14 Antibiotics) catgut Allergy Rash Uncoded 05/25/18 08:14 All Systems PM: A 10-system review of systems was performed and is negative for pertinent findings except as documented above in the HPI. - Constitutional Constitutional: no chills, no fever(s), no night sweats - EENT Eyes: no change in vision, no discharge, no pain, no photophobia Ears: no ear discharge, no ear pain, no tinnitus Nose, mouth and throat: no dysphagia, no nasal discharge, no neck pain, no sore throat - Cardiovascular Cardiovascular ROS IM: no chest pain, no diaphoresis, no dyspnea, no lightheadedness, no palpitations, no syncope - Respiratory Respiratory: no cough, no dyspnea, no wheezing, no excessive phlegm production - Gastrointestinal Gastrointestinal: no abdominal pain, no diarrhea, no hematemesis, no hematochezia, no melena, no nausea, no vomiting - Genitourinary Genitourinary: no change in urinary stream, no dysuria, no flank pain, no hematuria - Musculoskeletal Musculoskeletal ROS IM: no numbness, no tingling - Integumentary Integumentary IM: no rash, no unusual bruising - Neurological Neurological ROS: no confusion, no convulsions, no focal weakness, no numbness, no tingling, no tremor(s) - Hematologic/Lymphatic Hematologic/Lymphatic: no easy bruising - Constitutional Vitals: Temp Pulse Resp BP Pulse Ox 98.0 F 75 16 149/73 96 06/01/18 19:01 06/01/18 19:01 06/01/18 19:01 06/01/18 19:01 06/01/18 19:01 Exam: General: Alert and oriented 3 lying in bed in no acute distress Skin:Normal color, no rash, no lesions. HEENT:EOM, pupils equal, round and reactive. Cardiovascular:Normal S1 & S2, no rubs, murmurs or gallops. No JVD. Pulse regular. Lungs:Normal breath sounds, no wheezes or crackles. Abdomen:Soft, non-tender, no rigidity. Extremities:No deformity, no edema or tenderness, no joint swelling or clubbing. Neurological:Normal cognition extremity strength 5 out of 5 bilaterally. Lower extremity 5 out of 5 on the right; 4 out of 5 on the left. Diminished sensation involving the left upper and lower extremity as well as the left side of the face. Cranial nerves II through XII intact. Pulses:Carotid and radial pulses normal +2. Rest of the physical exam is non contributory Internal Med - H&P Results - Labs CBC & Chem 7: 06/01/18 23:12 06/02/18 05:27 - Assessment and plan (1) Neurological deficit present Current Visit: Yes Status: Acute Assessment and plan: 82-year-old female with past medical history of CVA/TIA, hypertension, hyperlipidemia, seizures and lymphoma currently on chemotherapy who presents with one-week history of left-sided upper and lower extremity paresthesias and weakness now also involving the left side of the face associated with reported blurry vision in left eye which began earlier today. No reports of recent illness. Laboratory findings are unremarkable. CT scan of the head obtained at [place] showed a mild low-density in the parietal subcortical white matter without mass or mass effect, otherwise, no evidence of an acute infarct or hemorrhage. Previous CT showed similar findings. Patient currently on Xarelto for atrial fibrillation. High suspicion for stroke given laterality of symptoms however, given duration of more than a week patient outside TPA window and currently on anticoagulation as well. Symptoms do not truly seem to be in an ascending fashion to raise concern for Guillian [place] Rosario syndrome. Patient also on chemotherapy. Unsure if this is contributing to current presentation. -Continue with frequent neuro checks -We will give rectal aspirin given sensitivity to oral -Continue Xarelto -MRI in the morning -Neurology consult (2) Paresthesias/numbness Current Visit: Yes Status: Acute Assessment and plan: Left-sided upper and lower extremity paresthesias also involving the left side of the face. -See management above (3) Follicular lymphoma grade II Current Visit: No Status: Acute Qualifiers: Lymphoma site: unspecified region Qualified Code(s): C82.10 - Follicular lymphoma grade II, unspecified site (4) A-fib Current Visit: No Status: Chronic Assessment and plan: History of atrial fibrillation rate controlled on anticoagulation -Continue with rate control and Xarelto Qualifiers: Atrial fibrillation type: unspecified Qualified Code(s): I48.91 - Unspecified atrial fibrillation (5) CAD (coronary artery disease) Current Visit: No Status: Chronic Assessment and plan: History of coronary artery disease. EKG stable. No reports of chest pain. Continue with medical management. Qualifiers: Coronary Disease-Associated Artery/Lesion type: unspecified vessel or lesion type Associated angina: without angina Qualified Code(s): I25.10 - Atherosclerotic heart disease of [place] coronary artery without angina pectoris (6) COPD (chronic obstructive pulmonary disease) Current Visit: No Status: Chronic Assessment and plan: No evidence of an acute exacerbation. Patient currently on home oxygen 2 L at night. Continue home inhalers. Qualifiers: Emphysema type: unspecified Qualified Code(s): J43.9 - Emphysema, unspecified (7) Hypertension Current Visit: No Status: Chronic Assessment and plan: Blood pressure stable. We will monitor. Resume home antihypertensives. Qualifiers: Hypertension type: essential hypertension Qualified Code(s): I10 - Essential (primary) hypertension (8) DVT prophylaxis Current Visit: No Status: Acute Assessment and plan: Patient currently on Xarelto - Time Spent With Patient Total time spent is greater than 50% in coordination of care (as documented) at patient's floor/unit and/or counseling patient:
[2018-06-01 23:34] LABS: Basophils % 0.5 %; Eosinophils # 1.2 K/mcL (0.0-0.6); Eosinophils % 15.6 %; Hematocrit 36.9 % (35.3-44.9); Hemoglobin 12.1 g/dL (11.5-15.4); Immature Granulocytes % 1.1 % (0-4); Lymphocytes # 0.3 K/mcL (0.6-4.6); Lymphocytes % 4.5 %; Mean Corpuscular HGB Conc 32.8 g/dL (31.6-35.5); Mean Corpuscular Hemoglobin 30.3 pg (28.0-33.3); Mean Corpuscular Volume 92.5 fL (83.0-100.0); Mean Platelet Volume 10.1 fL (9.4-12.4); Monocytes # 0.8 K/mcL (0.0-1.3); Monocytes % 11.1 %; Platelet Count 155 K/mcL (140-400); Red Blood Count 3.99 M/mcL (3.82-4.97); Red Cell Distribution Width 15.1 % (11.5-14.5); Segmented Neutrophils % 67.2 %
[2018-06-01 23:40] LABS: INR 1.2; Prothrombin Time 13.9 Seconds (9.4-12.1)
[2018-06-01 23:46] LABS: Estimated Average Glucose 117 mg/dl; Hemoglobin A1C 5.7 %
[2018-06-01 23:55] LABS: Troponin I < 0.03 ng/mL (< 0.04)
[2018-06-01 23:56] LABS: Alanine Aminotransferase 11 Units/L (7-52); Albumin 3.2 g/dL (3.5-5.7); Albumin/Globulin Ratio 1.3 (1.1-2.2); Alkaline Phosphatase 67 Units/L (34-104); Aspartate Amino Transferase 19 Units/L (13-39); BUN/Creatinine Ratio 20 (6-26); Bilirubin,Total 0.4 mg/dL (0.3-1.0); Blood Urea Nitrogen 14 mg/dL (8-23); Carbon Dioxide 28 mEq/L (23-29); Chloride 104 mEq/L (98-107); Chol/HDL Ratio 2.3 (0-4.9); Cholesterol 163 mg/dL (< 200); Globulin 2.4 g/dL (2.4-3.5); Glucose 104 mg/dL (70-105); HDL Cholesterol 72 mg/dL (40-59); LDL Cholesterol,Calculated 77 mg/dL (0-99); Osmolality,Calculated 281 (280-300); Potassium 3.9 mEq/L (3.5-5.1); Sodium 135 mEq/L (136-145); Total Protein 5.6 g/dL (6.4-8.9); Triglycerides 72 mg/dL (< 150); eGFR For Non-African Americans > 60 (> 60)
[2018-06-02] MEDS: rOPINIRole 1 MG TABLET PO SCH ×2 (03:20→23:29)
[2018-06-02] MEDS ORDERED: Ipratropium/Albuterol Neb 3 ML IH PRN (04:00)
[2018-06-02 06:23] LABS: Troponin I < 0.03 ng/mL (< 0.04)
[2018-06-02 06:24] LABS: Alanine Aminotransferase 13 Units/L (7-52); Albumin 3.1 g/dL (3.5-5.7); Albumin/Globulin Ratio 1.3 (1.1-2.2); Alkaline Phosphatase 63 Units/L (34-104); Aspartate Amino Transferase 19 Units/L (13-39); BUN/Creatinine Ratio 23 (6-26); Bilirubin,Total 0.5 mg/dL (0.3-1.0); Blood Urea Nitrogen 13 mg/dL (8-23); Calcium 8.9 mg/dL (8.6-10.3); Carbon Dioxide 28 mEq/L (23-29); Chloride 103 mEq/L (98-107); Globulin 2.4 g/dL (2.4-3.5); Glucose 99 mg/dL (70-105); Osmolality,Calculated 280 (280-300); Potassium 3.9 mEq/L (3.5-5.1); Sodium 135 mEq/L (136-145); Total Protein 5.5 g/dL (6.4-8.9); eGFR For Non-African Americans > 60 (> 60)
[2018-06-02] MEDS: Primidone 50 MG TABLET PO SCH ×2 (07:45→23:29)
[2018-06-02] MEDS: Magnesium Oxide 400 MG TABLET PO SCH ×2 (07:45→23:30)
[2018-06-02] MEDS: amLODIPine 5 MG TABLET PO SCH (07:46)
[2018-06-02] MEDS: *HR* Rivaroxaban 10 MG TABLET PO SCH (07:46)
[2018-06-02] MEDS: (Bifidobacterium Infantis [Align] 4 MG) PO SCH (07:47)
[2018-06-02] MEDS: Fluticasone Propionate Nasal 50 MCG/SPRAY BOTTLE NS SCH (07:48)
[2018-06-02] MEDS: Budesonide/Formoterol 160/4.5 1 PUFF INH IH SCH ×2 (10:44→20:28)
--- NOTE | 2018-06-02 13:58 | Neurology - Consult Note ---
Date of Encounter: 06/02/18 Time of Encounter: 13:52 History of Present Illness Chief complaint: left sided paresthesia and weakness HPI: Ms. Burnson is a 82 year old female with past medical history significant for previous CVA, GERD, restless leg syndrome, COPD with asthma history of atrial fibrillation, status post colectomy, diabetes hypertension who developed [place]ac [place] onset of left arm paresthesia and weakness as well as acute onset of left facial numbness and left leg weakness. Patient states initially she started feeding numb and weak. Her left arm about 1 week ago. The left arm weakness and paresthesia persisted and yesterday she also started experiencing left facial numbness as well as left leg weakness. She describes heaviness to her left arm her left leg although she is still able to walk using a cane. She drags her left leg when walking. She also feels left face was numb however, no speech difficulty or mental status changes were reported. At the time of this interview, patient completed MRI of the brain which demonstrated no acute intracranial abnormality. The indeed have cervical MRI that was done during 2013 which showed multiple disc disease causing loss of cervical spine curvature and mild to moderate spinal canal narrowing however, no significant spinal cord signal changes were identified. Patient denies significant back pain or leg pain. Patient is able to walk using a cane but she slightly drags her left leg when walking. No significant urinary incontinence reported. Past Med Surg Social Fam HX - Past Medical History Medical history: atrial fibrillation, COPD, GERD, hyperlipidemia, hypertension, seizures, thyroid disease, TIA, other Additional medical history: TREMORS Psychiatric history: anxiety, depression - Past Surgical History Surgical History: cholecystectomy, hysterectomy, orthopedic, other Additional surgical history: Bladder surgery, 2 back surgeries, Rt ankle surgery, Rt bunionectomy, partial hysterectomy - Social History Smoking Status: Former smoker Smokeless Tobacco Status: No Alcohol use: none Drug use: none - Family History Mother Living Status: Hx Family Cardiac Disorders: Yes Hx Family Endocrine Disorder: Yes Father Hx Family Respiratory Disorders: Yes Hx Family Cancer: Yes Brother Hx Family Cancer: Yes Medications and Allergies Budesonide/Formoterol 160/4.5 [Symbicort 160/4.5] 2 puff IH BIDR 11/13/15 [History] Ergocalciferol (VITAMIN D2) [Vitamin D2] 2,000 unit PO DAILY 11/13/15 [History] Primidone [Mysoline] 50 mg PO BID 11/13/15 [History] Ropinirole HCl [Requip] 5 mg PO HS 11/13/15 [History] Simvastatin [Zocor] 40 mg PO HS 11/13/15 [History] Amitriptyline HCl 50 mg PO HS 05/01/17 [History] clonazePAM [Klonopin] 0.5 mg PO HS #5 tablet 05/05/17 [Rx] Magnesium Oxide [Magnesium] 400 mg PO BID 11/05/17 [History] Pantoprazole Sodium [Protonix] 40 mg PO DAILY 11/06/17 [History] Rivaroxaban [Xarelto] 20 mg PO DAILY 03/09/18 [History] amLODIPine [Norvasc] 10 mg PO DAILY 03/09/18 [History] Bethanechol [Urecholine] 50 mg PO BID 03/23/18 [History] Bifidobacterium Infantis [Align] 4 mg PO DAILY 03/23/18 [History] Cranberry 500 mg PO DAILY 03/23/18 [History] Cyanocobalamin (Vitamin B-12) [Vitamin B-12] 1,000 mcg PO DAILY 03/23/18 [History] Fluticasone Propionate Nasal [Flonase] 50 mcg NS DAILY 03/23/18 [History] Metoprolol [Lopressor] 25 mg PO BID 03/23/18 [History] Omeprazole [PriLOSEC] 40 mg PO DAILY 03/23/18 [History] Albuterol Sulfate [Proair Hfa] 1 puff IH PRN PRN 06/01/18 [History] Ferrous Sulfate [Iron] 65 mg PO DAILY 06/01/18 [History] Ipratropium/Albuterol Neb [Duoneb] 3 ml IH Q6HR PRN 06/01/18 [History] Melatonin 5 mg PO HS 06/01/18 [History] Allergy/AdvReac Type Severity Reaction Status Date / Time morphine Allergy Fainting Verified 05/25/18 08:14 propoxyphene [From Darvon] Allergy Fainting Verified 05/25/18 08:14 aspirin [ASA] AdvReac See Verified 05/25/18 08:14 Comments codeine AdvReac Fainting Verified 05/25/18 08:14 gabapentin AdvReac Nausea Verified 05/25/18 08:14 Iodinated Contrast- Oral and AdvReac "knocked Verified 05/25/18 08:14 IV Dye out" [Iodinated Contrast Media - IV Dye] pentazocine [From Talwin] AdvReac Fainting Verified 05/25/18 08:14 Sulfa (Sulfonamide AdvReac Nausea Verified 05/25/18 08:14 Antibiotics) catgut Allergy Rash Uncoded 05/25/18 08:14 All Systems: The remainder of the systems were reviewed and are negative Physical Examination - Vital Signs Vital Signs: Initial Vital Signs Temp Pulse Resp BP Pulse Ox 97.5 F L 73 16 157/84 100 06/01/18 15:35 06/01/18 15:35 06/01/18 15:35 06/01/18 15:35 06/01/18 15:35 - Constitutional General appearance: comfortable - Neurologic Sensorimotor examination: intact Motor examination - right side: 5/5: deltoids, biceps, triceps, wrist flexion, wrist extension, j2ee engineer, hip flexors, tibialis Anterior, quadriceps, toe extension (EHL), plantarflexion Motor examination - left side: 4/5: quadriceps, tibialis Anterior, toe extension (EHL), plantarflexion, 5/5: deltoids, biceps, triceps, wrist flexion, wrist extension, hip flexors, j2ee engineer Detailed sensory examination: intact (Grossly intact) Posture: other (None) Reflex and gait examination: other (Patient is able to walk using a cane with a slight dragging of her left leg.) Reflexes: Biceps: 1+, Triceps: 1+, Brachioradialis: 1+, Patella: 1+, Achilles: 1+ Mental Status Examination: awake, alert, oriented to person, oriented to place, oriented to time, follows commands appropriately, answers questions appropriately, no agnosia, no aphasia, no aproxia Cranial nerve examination: PERRL, EOMI, visual fong intact, corneal reflexes brisk symmetrically, sensory to face intact, mastication intact, no facial asymmetry is present, no dysarthria, hearing is intact symmetrically, soft palate elevates bilaterally upon phonation, gag reflex intact, flexes SCM and trapezius muscles symmetrically with full power, tongue protrudes midline, no atrophy or facial fasiculations present Results - Laboratory Findings CBC and BMP: 06/01/18 23:12 06/02/18 05:27 Abnormal lab findings: Abnormal lab results RDW 15.1 % (11.5-14.5) H 06/01/18 23:12 Lymphocytes # 0.3 K/mcL (0.6-4.6) L 06/01/18 23:12 Eosinophils # 1.2 K/mcL (0.0-0.6) H 06/01/18 23:12 PT 13.9 Seconds (9.4-12.1) H 06/01/18 23:12 Sodium 135 mEq/L (136-145) L 06/02/18 05:27 Creatinine 0.56 mg/dL (0.60-1.20) L 06/02/18 05:27 Hemoglobin A1c 5.7 % (-5.6) H 06/01/18 23:12 Serum Total Protein 5.5 g/dL (6.4-8.9) L 06/02/18 05:27 Albumin 3.1 g/dL (3.5-5.7) L 06/02/18 05:27 HDL Cholesterol 72 mg/dL (40-59) H 06/01/18 23:12 - Diagnostic Findings Additional findings: EXAMINATION: MRI OF THE BRAIN WITHOUT CONTRAST 06/02/2018 9:03 am TECHNIQUE: Multiplanar multisequence MRI of the brain was performed without the administration of intravenous contrast. COMPARISON: MRI 11/24/2011. HISTORY: ORDERING SYSTEM PROVIDED HISTORY: ? stroke with abnormal CT head finding Initial evaluation. FINDINGS: INTRACRANIAL STRUCTURES/VENTRICLES: There is no acute infarct. No mass effect or midline shift. No evidence of an acute intracranial hemorrhage. Areas of T2 FLAIR hyperintensity are seen in the periventricular and subcortical white matter, which are nonspecific, but may represent chronic microvascular ischemic change. There is mild global parenchymal volume loss. The sellar/suprasellar regions appear unremarkable. The normal signal voids within the major intracranial vessels appear maintained. ORBITS: The visualized portion of the orbits demonstrate no acute abnormality. SINUSES: The visualized paranasal sinuses demonstrate no acute abnormality. Bilateral mastoid effusions. BONES/SOFT TISSUES: The bone marrow signal intensity appears normal. The soft tissues demonstrate no acute abnormality. MR/MR head/brain wo con IMPRESSION: 1. No acute intracranial abnormality. No acute infarct. 2. Mild global parenchymal volume loss with [id number] chronic microvascular ischemic change. 3. Bilateral mastoid effusions. D/ / José Miguel Gallo MD / José Miguel Gallo MD Interpreting Provider: José Miguel Gallo MD Consult Discharge Plan - Plan Referrals: Jamil Reece MD [Primary Care Provider] -
[2018-06-02 14:45] LABS: Bilirubin,Urine Negative (Negative); Blood,Urine Negative (Negative); Clarity,Urine Clear (Clear); Color,Urine Yellow (Yellow); Glucose,Urine (UA) Normal (Normal); Ketones,Urine Negative (Negative); Leukocyte Esterase,Urine Trace (Negative); Nitrite,Urine Negative (Negative); Protein,Urine Negative (Neg-Trace); Specific Gravity,Urine 1.012 (1.010-1.025); Urobilinogen,Urine Normal (Normal)
[2018-06-02 15:04] LABS: Bacteria,Urine Few per hpf (None-Few); RBC,Urine 0-3 per hpf (0-3); Squamous Epithelial Cell,Urine Few per lpf (None-Few); WBC,Urine 0-3 per hpf (0-3)
--- NOTE | 2018-06-02 15:48 | Internal Med Progress Note ---
Hospitalist Progress Note - Encounter Date of Encounter: 06/03/18 Time of Encounter: 11:00 - Subjective Interval History: Patient was seen and examined at bedside- Did note that patient has a tremor of head and hands she states that this is chronic - I did assist her to ambulate and she ambuated with a cane- she did appear somewhat unsteady- She denies any CP SOB palpations or headaches - Exam Vitals: Temp Pulse Resp BP Pulse Ox 97.5 F L 73 15 136/75 98 06/02/18 15:19 06/02/18 15:19 06/02/18 15:19 06/02/18 15:19 06/02/18 15:19 Exam: General: Alert and oriented 3 lying in bed in no acute distress Skin:Normal color, no rash, no lesions. HEENT:EOM, pupils equal, round and reactive. Cardiovascular:Normal S1 & S2, no rubs, murmurs or gallops. No JVD. Pulse regul ar. Lungs:Normal breath sounds, no wheezes or crackles. Abdomen:Soft, non-tender, no rigidity. Extremities:No deformity, no edema or tenderness, no joint swelling or clubbing. Neurological:Normal cognition extremity strength 5 out of 5 bilaterally. Lower extremity 5 out of 5 on the right; 4 out of 5 on the left. Diminished sensation involving the left upper and lower extremity as well as the left side of the face. Cranial nerves II through XII intact. Tremor of head and hands noted bilat Pulses:Carotid and radial pulses normal +2. Rest of the physical exam is non contributory - Assessment and Plan (1) COPD (chronic obstructive pulmonary disease) Current Visit: No Status: Chronic Assessment and Plan: No evidence of an acute exacerbation. Patient currently on home oxygen 2 L at night. Continue home inhalers. 06/02 does not appear to be in exacerbation. Currently on home oxgen of 2L NC Cont home bronchodilators (2) Hypertension Current Visit: No Status: Chronic Assessment and Plan: Blood pressure stable. We will monitor. Resume home antihypertensives. stable cont home meds (3) DVT prophylaxis Current Visit: No Status: Acute Assessment and Plan: Patient currently on Xarelto (4) CAD (coronary artery disease) Current Visit: No Status: Chronic Assessment and Plan: History of coronary artery disease. EKG stable. No reports of chest pain. Continue with medical management. (5) A-fib Current Visit: No Status: Chronic Assessment and Plan: History of atrial fibrillation rate controlled on anticoagulation -Continue with rate control and Xarelto (6) Follicular lymphoma grade II Current Visit: No Status: Acute (7) Paresthesias/numbness Current Visit: Yes Status: Acute Assessment and Plan: Left-sided upper and lower extremity paresthesias also involving the left side of the face. -See management above 06/02 Seen by neurology- dt to age and comorbidities conservative measure cont with Xarelto no other antiplatlet therapy needed (8) Neurological deficit present Current Visit: Yes Status: Acute Assessment and Plan: 82-year-old female with past medical history of CVA/TIA, hypertension, hyperlipidemia, seizures and lymphoma currently on chemotherapy who presents with one-week history of left-sided upper and lower extremity paresthesias and weakness now also involving the left side of the face associated with reported blurry vision in left eye which began earlier today. No reports of recent ill ness. Laboratory findings are unremarkable. CT scan of the head obtained at [place] showed a mild low-density in the parietal subcortical white matter without mass or mass effect, otherwise, no evidence of an acute infarct or hemorrhage. Previous CT showed similar findings. Patient currently on Xarelto for atrial fibrillation. High suspicion for stroke given laterality of symptoms however, given duration of more than a week patient outside TPA window and currently on anticoagulation as well. Symptoms do not truly seem to be in an ascending fashion to raise concern for Guillian Del Rosario syndrome. Patient also on chemotherapy. Unsure if this is contributing to current presentation. -Continue with frequent neuro checks -We will give rectal aspirin given sensitivity to oral -Continue Xarelto -MRI in the morning -Neurology consult 06.02 neurology consulted MRI of brain did not identify any acute infarct Previous hx of cervical disease - per neurology may have lumbar disc disease causing sx rt to left leg weakness and paresthesia - left facial numbness unknown etiology - due to age and comorbidities neurology recommends conservative treatment - cont xarelto - no antiplatlet PT/OT consulted awaiting recommendations - Time Spent with Patient Total time spent is greater than 50% in coordination of care (as documented) at patient's floor/unit and/or counseling patient: Internal Medicine: Result - Labs CBC & Chem 7: 06/01/18 23:12 06/02/18 05:27 Labs: Short CBC 06/01/18 Range/Units 23:12 WBC 7.4 (4.3-11.1) K/mcL Hgb 12.1 (11.5-15.4) g/dL Hct 36.9 (35.3-44.9) % Plt Count 155 (140-400) K/mcL Neutrophils # 5.0 (1.6-8.9) K/mcL BMP 06/01/18 06/02/18 23:12 05:27 Sodium 135 L 135 L Potassium 3.9 3.9 Chloride 104 103 Carbon Dioxide 28 28 BUN 14 13 Creatinine 0.70 0.56 L Glucose 104 99 Calcium 9.0 8.9 Cardiac Enzymes 06/01/18 06/02/18 06/02/18 Range/Units 23:12 05:27 11:13 Troponin I < 0.03 < 0.03 < 0.03 (< 0.04) ng/mL Liver Function 06/01/18 06/02/18 Range/Units 23:12 05:27 Total Bilirubin 0.4 0.5 (0.3-1.0) mg/dL AST 19 19 (13-39) Units/L ALT 11 13 (7-52) Units/L Alkaline Phosphatase 67 63 (34-104) Units/L Albumin 3.2 L 3.1 L (3.5-5.7) g/dL Urine 06/02/18 Range/Units 10:31 Urine Color Yellow (Yellow) Urine Clarity Clear (Clear) Urine pH 7.0 (5.0-8.0) pH Units Ur Specific [place] 1.012 (1.010-1.025) Urine Protein Negative (Neg-Trace) mg/dL Urine Glucose (UA) Normal (Normal) mg/dL - ABG Interpretation ABG results: PT/INR, D-dimer PT 13.9 Seconds (9.4-12.1) H 06/01/18 23:12 - Impressions Impressions Brain MRI 06/02/18 07:00 IMPRESSION: 1. No acute intracranial abnormality. No acute infarct. 2. Mild global parenchymal volume loss with [id number] chronic microvascular ischemic change. 3. Bilateral mastoid effusions. D/ / José Miguel Gallo MD / José Miguel Gallo MD Interpreting Provider: José Miguel Gallo MD Consult Discharge Plan - Plan Referrals: Jamil Reece MD [Primary Care Provider] - 06/08/18 10:45 am (1) COPD (chronic obstructive pulmonary disease) Qualifiers: Emphysema type: unspecified Qualified Code(s): J43.9 - Emphysema, unspecified (2) Hypertension Qualifiers: Hypertension type: essential hypertension Qualified Code(s): I10 - Essential (primary) hypertension (4) CAD (coronary artery disease) Qualifiers: Coronary Disease-Associated Artery/Lesion type: unspecified vessel or lesion type Associated angina: without angina (5) A-fib Qualifiers: Atrial fibrillation type: unspecified Qualified Code(s): I48.91 - Unspecified atrial fibrillation (6) Follicular lymphoma grade II Qualifiers: Lymphoma site: unspecified region Qualified Code(s): C82.10 - Follicular lymphoma grade II, unspecified site
[2018-06-02] MEDS ORDERED: NON-FORMULARY MEDICATION 1 EACH EACH (Ropinirole Hcl [Requip] 5 MG) PO SCH (21:00)
[2018-06-02] MEDS: Melatonin 3 MG TABLET PO SCH (23:30)
[2018-06-03] MEDS: Budesonide/Formoterol 160/4.5 1 PUFF INH IH SCH ×2 (08:12→20:23)
[2018-06-03] MEDS: *HR* Rivaroxaban 10 MG TABLET PO SCH (08:36)
[2018-06-03] MEDS: Magnesium Oxide 400 MG TABLET PO SCH ×2 (08:37→21:47)
[2018-06-03] MEDS: amLODIPine 5 MG TABLET PO SCH (08:37)
[2018-06-03] MEDS: (Bifidobacterium Infantis [Align] 4 MG) PO SCH (08:37)
[2018-06-03] MEDS: Primidone 50 MG TABLET PO SCH ×2 (08:37→21:48)
[2018-06-03] MEDS: Fluticasone Propionate Nasal 50 MCG/SPRAY BOTTLE NS SCH (08:39)
--- NOTE | 2018-06-03 19:38 | Internal Med Progress Note ---
Hospitalist Progress Note - Encounter Date of Encounter: 06/03/18 Time of Encounter: 11:00 - Subjective Interval History: Patient was seen and examined at bedside- Did note that patient has a tremor of head and hands she states that this is chronic - She does have some difficulty ambulating awaiting PT/OT recommendations - Exam Vitals: Temp Pulse Resp BP Pulse Ox 98.7 F 92 16 151/83 95 06/03/18 18:54 06/03/18 18:54 06/03/18 18:54 06/03/18 18:54 06/03/18 18:54 Exam: General: Alert and oriented 3 lying in bed in no acute distress Skin:Normal color, no rash, no lesions. HEENT:EOM, pupils equal, round and reactive. Cardiovascular:Normal S1 & S2, no rubs, murmurs or gallops. No JVD. Pulse regular. Lungs:Normal breath sounds, no wheezes or crackles. Abdomen:Soft, non-tender, no rigidity. Extremities:No deformity, no edema or tenderness, no joint swelling or clubbing. Neurological:Normal cognition extremity strength 5 out of 5 bilaterally. Lower extremity 5 out of 5 on the right; 4 out of 5 on the left. Diminished sensation involving the left upper and lower extremity as well as the left side of the face. Cranial nerves II through XII intact. Tremor of head and hands noted bilat Pulses:Carotid and radial pulses normal +2. Rest of the physical exam is non contributory - Assessment and Plan (1) COPD (chronic obstructive pulmonary disease) Current Visit: No Status: Chronic Assessment and Plan: No evidence of an acute exacerbation. Patient currently on home oxygen 2 L at night. Continue home inhalers. 06/02 does not appear to be in exacerbation. Currently on home oxgen of 2L NC Cont home bronchodilators 06/03 stable (2) Hypertension Current Visit: No Status: Chronic Assessment and Plan: Blood pressure stable. We will monitor. Resume home antihypertensives. stable cont home meds 06/03 cont to be stable (3) DVT prophylaxis Current Visit: No Status: Acute Assessment and Plan: Patient currently on Xarelto (4) CAD (coronary artery disease) Current Visit: No Status: Chronic Assessment and Plan: History of coronary artery disease. EKG stable. No reports of chest pain. Continue with medical management. 06/03 No CP cont with medical managment (5) A-fib Current Visit: No Status: Chronic Assessment and Plan: History of atrial fibrillation rate controlled on anticoagulation -Continue with rate control and Xarelto 06/03 stable cont with xarelto - rate controlled (6) Follicular lymphoma grade II Current Visit: No Status: Acute Assessment and Plan: per hx - stable at this time (7) Paresthesias/numbness Current Visit: Yes Status: Acute Assessment and Plan: Left-sided upper and lower extremity paresthesias also involving the left side of the face. -See management above 06/03 Seen by neurology- dt to age and comorbidities conservative measure cont with Xarelto no other antiplatlet therapy needed (8) Neurological deficit present Current Visit: Yes Status: Acute Assessment and Plan: 82-year-old female with past medical history of CVA/TIA, hypertension, hyperlipidemia, seizures and lymphoma currently on chemotherapy who presents with one-week history of left-sided upper and lower extremity paresthesias and weakness now also involving the left side of the face associated with reported blurry vision in left eye which began earlier today. No reports of recent illness. Laboratory findings are unremarkable. CT scan of the head obtained at [place] showed a mild low-density in the parietal subcortical white matter without mass or mass effect, otherwise, no evidence of an acute infarct or hemorrhage. Previous CT showed similar findings. Patient currently on Xarelto for atrial fibrillation. High suspicion for stroke given laterality of symptoms however, given duration of more than a week patient outside TPA window and currently on anticoagulation as well. Symptoms do not truly seem to be in an ascending fashion to raise concern for Guillian Del Rosario syndrome. Patient also on chemotherapy. Unsure if this is contributing to current presentation. -Continue with frequent neuro checks -We will give rectal aspirin given sensitivity to oral -Continue Xarelto -MRI in the morning -Neurology consult 06.03 neurology consulted MRI of brain did not identify any acute infarct Previous hx of cervical disease - per neurology may have lumbar disc disease causing sx rt to left leg weakness and paresthesia - left facial numbness unknown etiology - due to age and comorbidities neurology recommends conservative treatment - cont xarelto - no antiplatlet PT/OT consulted awaiting recommendations - Time Spent with Patient Total time spent is greater than 50% in coordination of care (as documented) at patient's floor/unit and/or counseling patient: Internal Medicine: Result - Labs CBC & Chem 7: 06/01/18 23:12 06/02/18 05:27 - ABG Interpretation ABG results: PT/INR, D-dimer PT 13.9 Seconds (9.4-12.1) H 06/01/18 23:12 Consult Discharge Plan - Plan Referrals: Jamil Reece MD [Primary Care Provider] - 06/08/18 10:45 am (1) COPD (chronic obstructive pulmonary disease) Qualifiers: Emphysema type: unspecified Qualified Code(s): J43.9 - Emphysema, unspecified (2) Hypertension Qualifiers: Hypertension type: essential hypertension Qualified Code(s): I10 - Essential (primary) hypertension (4) CAD (coronary artery disease) Qualifiers: Coronary Disease-Associated Artery/Lesion type: unspecified vessel or lesion type Associated angina: without angina Qualified Code(s): I25.10 - Atherosclerotic heart disease of [place] coronary artery without angina pectoris (5) A-fib Qualifiers: Atrial fibrillation type: unspecified Qualified Code(s): I48.91 - Unspecified atrial fibrillation (6) Follicular lymphoma grade II Qualifiers: Lymphoma site: unspecified region Qualified Code(s): C82.10 - Follicular lymphoma grade II, unspecified site
[2018-06-03] MEDS: Acetaminophen 325 MG TABLET PO PRN (21:47)
[2018-06-03] MEDS: rOPINIRole 1 MG TABLET PO SCH (21:47)
[2018-06-03] MEDS: Melatonin 3 MG TABLET PO SCH (21:47)
--- NOTE | 2018-06-04 07:37 | Discharge Summary ---
- NOTES TO OUTPATIENT PROVIDER Notes to Outpatient Provider: Presented with Paresthesia/numbness. Seen by neurology dt to age and comorbidities conservative measure cont with Xarelto no other antiplatlet therapy needed. Seen By PT/OT- No needs Orders not resulted at time of discharge: Pending orders 06/04/18 04:25 Culture,Urine [RM] Stat 06/04/18 07:34 CBC [Complete Blood Count] [HEME] Routine Chem 7 [Basic Metabolic Panel] Routine Date of Encounter: 06/05/18 Time of Encounter: 07:37 - Discharge Diagnosis (1) COPD (chronic obstructive pulmonary disease) Priority: Primary Status: Chronic Qualifiers: COPD type: unspecified COPD Qualified Code(s): J44.9 - Chronic obstructive pulmonary disease, unspecified (2) Hypertension Priority: Secondary Status: Chronic Qualifiers: Hypertension type: essential hypertension Qualified Code(s): I10 - Essential (primary) hypertension (3) CAD (coronary artery disease) Priority: Secondary Status: Chronic Qualifiers: Coronary Disease-Associated Artery/Lesion type: unspecified vessel or lesion type [place] vs. transplanted heart: [place] heart Associated angina: without angina Qualified Code(s): I25.10 - Atherosclerotic heart disease of [place] coronary artery without angina pectoris (4) A-fib Priority: Secondary Status: Chronic Qualifiers: Atrial fibrillation type: unspecified Qualified Code(s): I48.91 - Unspecified atrial fibrillation (5) Follicular lymphoma grade II Priority: Secondary Status: Acute Qualifiers: Lymphoma site: unspecified region Qualified Code(s): C82.10 - Follicular lymphoma grade II, unspecified site (6) Paresthesias/numbness Priority: Primary Status: Acute (7) Neurological deficit present Priority: Secondary Status: Acute Hospital course: Ms. Brunson is a 82 year old female past medical hx significant for tremors previous CVA COPD with Asthma developed subacute onset of L arm and left leg weakness as well as facial numbness CT of head was unremarkable MRI did not show any acute infarct She was seen by neurology - patient does have hx of cervical disk disease who suspects lumbar disc disease- recommending conservative treatment and to continue xarelto no other antiplatlet therapy warranted She was evaluated bt PT/OT and patient required no acute needs She is hemodynamically stable and ready for discharge - I advised patient to follow up with PCP since this provider knows her best and can adjust medications appropriately - Time Spent with Patient Total time spent providing and/or coordinating discharge services: - Discharge Medications Home Medications: Budesonide/Formoterol 160/4.5 [Symbicort 160/4.5] 2 puff IH BIDR 11/13/15 [History] Ergocalciferol (VITAMIN D2) [Vitamin D2] 2,000 unit PO DAILY 11/13/15 [History] Primidone [Mysoline] 50 mg PO BID 11/13/15 [History] Ropinirole HCl [Requip] 5 mg PO HS 11/13/15 [History] Simvastatin [Zocor] 40 mg PO HS 11/13/15 [History] Amitriptyline HCl 50 mg PO HS 05/01/17 [History] clonazePAM [Klonopin] 0.5 mg PO HS #5 tablet 05/05/17 [Rx] Magnesium Oxide [Magnesium] 400 mg PO BID 11/05/17 [History] Pantoprazole Sodium [Protonix] 40 mg PO DAILY 11/06/17 [History] Rivaroxaban [Xarelto] 20 mg PO DAILY 03/09/18 [History] amLODIPine [Norvasc] 10 mg PO DAILY 03/09/18 [History] Bethanechol [Urecholine] 50 mg PO BID 03/23/18 [History] Bifidobacterium Infantis [Align] 4 mg PO DAILY 03/23/18 [History] Cranberry 500 mg PO DAILY 03/23/18 [History] Cyanocobalamin (Vitamin B-12) [Vitamin B-12] 1,000 mcg PO DAILY 03/23/18 [History] Fluticasone Propionate Nasal [Flonase] 50 mcg NS DAILY 03/23/18 [History] Metoprolol [Lopressor] 25 mg PO BID 03/23/18 [History] Omeprazole [PriLOSEC] 40 mg PO DAILY 03/23/18 [History] Albuterol Sulfate [Proair Hfa] 1 puff IH PRN PRN 06/01/18 [History] Ferrous Sulfate [Iron] 65 mg PO DAILY 06/01/18 [History] Ipratropium/Albuterol Neb [Duoneb] 3 ml IH Q6HR PRN 06/01/18 [History] Melatonin 5 mg PO HS 06/01/18 [History] Allergies/Adverse Reactions: Allergy/AdvReac Type Severity Reaction Status Date / Time morphine Allergy Fainting Verified 05/25/18 08:14 propoxyphene [From Darvon] Allergy Fainting Verified 05/25/18 08:14 aspirin [ASA] AdvReac See Verified 05/25/18 08:14 Comments codeine AdvReac Fainting Verified 05/25/18 08:14 gabapentin AdvReac Nausea Verified 05/25/18 08:14 Iodinated Contrast- Oral and AdvReac "knocked Verified 05/25/18 08:14 IV Dye out" [Iodinated Contrast Media - IV Dye] pentazocine [From Talwin] AdvReac Fainting Verified 05/25/18 08:14 Sulfa (Sulfonamide AdvReac Nausea Verified 05/25/18 08:14 Antibiotics) catgut Allergy Rash Uncoded 05/25/18 08:14 Date of admission: 06/02/18 05:32 Primary care physician: Jamil Reece MD Consults: 06/01/18 20:02 Consult to Neurology [CONS] Routine Consulting Provider: Neurology [facility] Reason for Consult: Left facial numbness. Abnormal finding on CAT scan had Call Completed: No 06/03/18 11:10 Consult to Occupational Therapy [CONS] Routine Comment: Evaluate, develop and implement POC Reason for Consult: weakness Does patient have active BEDREST order?: No Is patient medically & hemodynamically stable?: Yes Patient assessed for mobility or mobilized this visit?: No Consult to Physical Therapy [CONS] Routine Comment: Evaluate, develop and implement POC Reason for Consult: weakness Does patient have active BEDREST order?: No Is patient medically & hemodynamically stable?: Yes Patient assessed for mobility or mobilized this visit?: No Discharging clinician: Cheryl Velazquez Anticipated date of discharge: 06/05/18 - Constitutional Vitals: Temp Pulse Resp BP Pulse Ox 98.2 F 69 16 143/83 97 06/04/18 03:37 06/04/18 03:37 06/04/18 03:37 06/04/18 03:37 06/04/18 03:37 Exam: . - Head Head exam: Present: atraumatic, normocephalic - Eye Eye exam: Present: PERRL, conjuntiva pink, sclera anicteric Pupils: Present: PERRL - Neck Neck exam general surgery: Present: supple, trachea midline. Absent: lymphadenopathy - Respiratory Respiratory exam: Present: CTAB. Absent: accessory muscle use, rales, rhonchi, wheezes - Cardiovascular Cardiovascular exam: Present: RRR, +S1, +S2. Absent: diastolic murmur, gallop, rubs, systolic murmur - GI/Abdominal GI/Abdominal exam: Present: normal bowel sounds, soft, no peritoneal signs. Absent: distended, tenderness - Extremities Exam Extremities exam: Present: warm, radial pulses palpable and symmetrical. Absent: calf tenderness, cyanotic, pedal edema - Neurological Exam Neurological exam: Present: CN II-XII intact, oriented X3. Absent: pronater drift, facial droop, speech deficit Additional comments: L sided weakness of upper extremity and lower extremity - Skin Skin exam: Present: dry, intact - Patient Status Disposition: Home, Self-Care Condition: Good Functional capacity at discharge: uses cane/walker Overall status at discharge: patient is back to baseline - Discharge Instructions Instructions: Atrial Fibrillation (DC), Chronic Obstructive Pulmonary Disease (DC), Chronic Hypertension (DC) Follow Up With: Jamil Reece MD [Primary Care Provider] - 06/08/18 10:45 am - Diet and Activity Activity: ambulate only with your walker
[2018-06-04] MEDS: Magnesium Oxide 400 MG TABLET PO SCH (07:41)
[2018-06-04 07:42] VITALS: BP 134/76
[2018-06-04] MEDS: amLODIPine 5 MG TABLET PO SCH (07:42)
[2018-06-04] MEDS: Primidone 50 MG TABLET PO SCH (07:42)
[2018-06-04] MEDS: Acetaminophen 325 MG TABLET PO PRN (07:42)
[2018-06-04] MEDS: (Bifidobacterium Infantis [Align] 4 MG) PO SCH (07:42)
[2018-06-04] MEDS: *HR* Rivaroxaban 10 MG TABLET PO SCH (07:42)
[2018-06-04] MEDS: Fluticasone Propionate Nasal 50 MCG/SPRAY BOTTLE NS SCH (07:43)
[2018-06-04 08:36] LABS: Basophils % 0.3 %; Eosinophils # 0.6 K/mcL (0.0-0.6); Eosinophils % 5.4 %; Hematocrit 38.3 % (35.3-44.9); Hemoglobin 12.5 g/dL (11.5-15.4); Immature Granulocytes % 0.4 % (0-4); Lymphocytes # 0.3 K/mcL (0.6-4.6); Lymphocytes % 2.7 %; Mean Corpuscular HGB Conc 32.6 g/dL (31.6-35.5); Mean Corpuscular Volume 92.1 fL (83.0-100.0); Mean Platelet Volume 10.3 fL (9.4-12.4); Monocytes # 1.4 K/mcL (0.0-1.3); Monocytes % 12.4 %; Neutrophils # 8.8 K/mcL (1.6-8.9); Platelet Count 147 K/mcL (140-400); Red Blood Count 4.16 M/mcL (3.82-4.97); Red Cell Distribution Width 14.8 % (11.5-14.5); Segmented Neutrophils % 78.8 %
[2018-06-04 08:55] LABS: BUN/Creatinine Ratio 32 (6-26); Blood Urea Nitrogen 18 mg/dL (8-23); Calcium 9.2 mg/dL (8.6-10.3); Carbon Dioxide 27 mEq/L (23-29); Chloride 101 mEq/L (98-107); Glucose 118 mg/dL (70-105); Osmolality,Calculated 277 (280-300); Sodium 132 mEq/L (136-145); eGFR For Non-African Americans > 60 (> 60)
[2018-06-04] MEDS: Budesonide/Formoterol 160/4.5 1 PUFF INH IH SCH (09:42)
== END 2018-06-04 11:01 | disposition home or self-care (01) | DRG 92 ==
LOC: 3BNU
PROVIDERS: ADMIT Student in an Organized Health Care Education/Training Program; ATTEND Student in an Organized Health Care Education/Training Program

== ENCOUNTER 2018-07-13 15:39 | Inpatient (IN) ==
--- NOTE | 2018-07-13 16:12 | Emergency Department Note ---
Disposition Clinical Impression: Hyponatremia, Hyperkalemia Disposition: Admitted As Inpatient Referrals: Jamil Reece MD [Primary Care Provider] - Forms: ED Satisfaction Letter Time of Disposition: 19:47 General Adult HPI - General Chief complaint: ED Recheck/Abnormal Lab/Rx Stated complaint: Low potassium/sodium Time Seen by Provider: 07/13/18 15:56 Source: patient Limitations: no limitations Nursing Notes Reviewed: Yes Vital Signs Reviewed: Yes - History of Present Illness HPI Narrative: Patient is an 83-year-old female with a past medical history sounds good of thyroid cancer, hypertension, A. fib and COPD who presents to the ED due to abnormal lab results. Patient states that she had a potassium 6.3 sodium 114 and GFR 48. Patient saw her primary care physician yesterday. Labs drawn then. There are low however patient said she does not have to be admitted at the time if she will get her labs redrawn today. Today stay showed worsening results and he told her to the ED for admission. Patient states she has been short of breath weak over the past week. Patient has had recurrent UTIs. States she feels like she has a UTI currently, having dysuria. She has had some generalized weakness. Patient denies any fevers, chills, chest pain palpitations, abdominal pain, nausea, vomiting, diarrhea Pain Scale: 7 - Related Data Home Medications Medication Instructions Recorded Confirmed Budesonide/Formoterol 160/4.5 2 puff IH BIDR 11/13/15 06/22/18 [Symbicort 160/4.5] Ergocalciferol (VITAMIN D2) 2,000 unit PO DAILY 11/13/15 06/22/18 [Vitamin D2] Primidone [Mysoline] 50 mg PO BID 11/13/15 06/22/18 Ropinirole HCl [Requip] 5 mg PO HS 11/13/15 06/22/18 Simvastatin [Zocor] 40 mg PO HS 11/13/15 06/22/18 Amitriptyline HCl 50 mg PO HS 05/01/17 06/22/18 Magnesium Oxide [Magnesium] 400 mg PO BID 11/05/17 06/22/18 Pantoprazole Sodium [Protonix] 40 mg PO DAILY 11/06/17 06/22/18 Rivaroxaban [Xarelto] 20 mg PO DAILY 03/09/18 06/22/18 amLODIPine [Norvasc] 10 mg PO DAILY 03/09/18 06/22/18 Bethanechol [Urecholine] 50 mg PO BID 03/23/18 06/22/18 Bifidobacterium Infantis [Align] 4 mg PO DAILY 03/23/18 06/22/18 Cranberry 500 mg PO DAILY 03/23/18 06/22/18 Cyanocobalamin (Vitamin B-12) 1,000 mcg PO DAILY 03/23/18 06/22/18 [Vitamin B-12] Fluticasone Propionate Nasal 50 mcg NS DAILY 03/23/18 06/22/18 [Flonase] Metoprolol [Lopressor] 25 mg PO BID 03/23/18 06/22/18 Omeprazole [PriLOSEC] 40 mg PO DAILY 03/23/18 06/22/18 Albuterol Sulfate [Proair Hfa] 1 puff IH PRN PRN 06/01/18 06/22/18 Ferrous Sulfate [Iron] 65 mg PO DAILY 06/01/18 06/22/18 Ipratropium/Albuterol Neb [Duoneb] 3 ml IH Q6HR PRN 06/01/18 06/22/18 Melatonin 5 mg PO HS 06/01/18 06/22/18 Cyclobenzaprine [Flexeril] 10 mg PO BID 06/15/18 06/22/18 Previous Rx's Medication Instructions Recorded clonazePAM [Klonopin] 0.5 mg PO HS #5 tablet 05/05/17 Allergies Allergy/AdvReac Type Severity Reaction Status Date / Time morphine Allergy Fainting Verified 06/22/18 08:18 propoxyphene [From Darvon] Allergy Fainting Verified 06/22/18 08:18 aspirin [ASA] AdvReac See Verified 06/22/18 08:18 Comments codeine AdvReac Fainting Verified 06/22/18 08:18 gabapentin AdvReac Nausea Verified 06/22/18 08:18 Iodinated Contrast- Oral and AdvReac "knocked Verified 06/22/18 08:18 IV Dye out" [Iodinated Contrast Media - IV Dye] pentazocine [From Talwin] AdvReac Fainting Verified 06/22/18 08:18 Sulfa (Sulfonamide AdvReac Nausea Verified 06/22/18 08:18 Antibiotics) catgut Allergy Rash Uncoded 06/22/18 08:18 Constitutional: Reports: as per HPI Cardiovascular: Reports: as per HPI Respiratory: Reports: as per HPI Gastrointestinal: Reports: as per HPI Genitourinary: Reports: as per HPI Neurological: Denies: headache Past Medical History - Past Medical History Medical history: Reports: atrial fibrillation, cancer, COPD, GERD, hyperlipidemia, hypertension, seizures, thyroid disease, TIA, other Surgical history: Reports: cholecystectomy, hysterectomy, orthopedic, other Psychiatric history: Reports: anxiety, depression NEUROLOGY STROKE PHYSICIAN history: Reports: no NEUROLOGY STROKE PHYSICIAN history - Social History Smoking Status: Former smoker Smokeless Tobacco Status: No Alcohol use: Reports: none Drug use: Reports: none Physical Exam - General Limitations: no limitations General appearance: alert, in no apparent distress - Head Head exam: atraumatic, normocephalic - Chest Chest inspection: Present: normal inspection, symmetric chest wall rise. Absent: tenderness - Respiratory Respiratory exam: Present: normal lung sounds bilaterally. Absent: respiratory distress, wheezes, accessory muscle use - Cardiovascular Cardiovascular exam: Present: regular rate, normal rhythm, normal heart sounds, +S1, +S2. Absent: bradycardia, tachycardia, systolic murmur, diastolic murmur, rubs, gallop, clicks - Extremities Exam Extremities exam: Present: normal inspection. Absent: tenderness, pedal edema, calf tenderness - Neurological Exam Neurological exam: Present: alert, oriented X3 - Psychiatric Psychiatric exam: Present: normal affect, normal mood - Skin Skin exam: Present: warm, dry, intact Course Vital Signs Temperature 98.2 F 07/13/18 15:48 Pulse Rate 81 07/13/18 15:48 Respiratory Rate 20 07/13/18 15:48 Blood Pressure 117/70 07/13/18 15:48 O2 Sat by Pulse Oximetry 93 07/13/18 15:48 Temperature 98.2 F 07/13/18 15:48 Pulse Rate 72 07/13/18 17:33 Respiratory Rate 16 07/13/18 17:33 Blood Pressure 121/78 07/13/18 17:33 O2 Sat by Pulse Oximetry 99 07/13/18 17:33 Oxygen Delivery Oxygen Delivery Room Air Medical Decision Making - MDM Narrative Medical decision making narrative: Since then for admission per primary care physician's request. Due to lab abnormalities. Patient will need admission for monitoring. Attempting to get labs from [facility]. We requested the labs. However labs have not been sent over. Will order repeat labs. We will call hospitalist for admission. Spoke with entry level mechanical engineer, Dr. white, she recommended getting her urine osmolality and urine sodium studies. She pleaded potassium go down once urine output increased. Hospitalist recommended D50 and insulin before transfer to the floor Hospitalist Dr. hernandez accepts
[2018-07-13] MEDS ORDERED: 0.9 % Sodium Chloride 250 ML IVC ONE (17:04)
--- NOTE | 2018-07-13 17:09 | Emergency Department Note ---
Disposition Clinical Impression: Hyponatremia, Hyperkalemia Disposition: Admitted As Inpatient Condition: Fair General Adult HPI - General Chief complaint: ED Recheck/Abnormal Lab/Rx Stated complaint: Low potassium/sodium Time Seen by Provider: 07/13/18 15:56 Source: patient Limitations: no limitations - History of Present Illness Pain Scale: 7 - Related Data Home Medications Medication Instructions Recorded Confirmed Budesonide/Formoterol 160/4.5 2 puff IH BIDR 11/13/15 06/22/18 [Symbicort 160/4.5] Ergocalciferol (VITAMIN D2) 2,000 unit PO DAILY 11/13/15 06/22/18 [Vitamin D2] Primidone [Mysoline] 50 mg PO BID 11/13/15 06/22/18 Ropinirole HCl [Requip] 5 mg PO HS 11/13/15 06/22/18 Simvastatin [Zocor] 40 mg PO HS 11/13/15 06/22/18 Amitriptyline HCl 50 mg PO HS 05/01/17 06/22/18 Magnesium Oxide [Magnesium] 400 mg PO BID 11/05/17 06/22/18 Pantoprazole Sodium [Protonix] 40 mg PO DAILY 11/06/17 06/22/18 Rivaroxaban [Xarelto] 20 mg PO DAILY 03/09/18 06/22/18 amLODIPine [Norvasc] 10 mg PO DAILY 03/09/18 06/22/18 Bethanechol [Urecholine] 50 mg PO BID 03/23/18 06/22/18 Bifidobacterium Infantis [Align] 4 mg PO DAILY 03/23/18 06/22/18 Cranberry 500 mg PO DAILY 03/23/18 06/22/18 Cyanocobalamin (Vitamin B-12) 1,000 mcg PO DAILY 03/23/18 06/22/18 [Vitamin B-12] Fluticasone Propionate Nasal 50 mcg NS DAILY 03/23/18 06/22/18 [Flonase] Metoprolol [Lopressor] 25 mg PO BID 03/23/18 06/22/18 Omeprazole [PriLOSEC] 40 mg PO DAILY 03/23/18 06/22/18 Albuterol Sulfate [Proair Hfa] 1 puff IH PRN PRN 06/01/18 06/22/18 Ferrous Sulfate [Iron] 65 mg PO DAILY 06/01/18 06/22/18 Ipratropium/Albuterol Neb [Duoneb] 3 ml IH Q6HR PRN 06/01/18 06/22/18 Melatonin 5 mg PO HS 06/01/18 06/22/18 Cyclobenzaprine [Flexeril] 10 mg PO BID 06/15/18 06/22/18 Previous Rx's Medication Instructions Recorded clonazePAM [Klonopin] 0.5 mg PO HS #5 tablet 05/05/17 Allergies Allergy/AdvReac Type Severity Reaction Status Date / Time morphine Allergy Fainting Verified 06/22/18 08:18 propoxyphene [From Darvon] Allergy Fainting Verified 06/22/18 08:18 aspirin [ASA] AdvReac See Verified 06/22/18 08:18 Comments codeine AdvReac Fainting Verified 06/22/18 08:18 gabapentin AdvReac Nausea Verified 06/22/18 08:18 Iodinated Contrast- Oral and AdvReac "knocked Verified 06/22/18 08:18 IV Dye out" [Iodinated Contrast Media - IV Dye] pentazocine [From Talwin] AdvReac Fainting Verified 06/22/18 08:18 Sulfa (Sulfonamide AdvReac Nausea Verified 06/22/18 08:18 Antibiotics) catgut Allergy Rash Uncoded 06/22/18 08:18 All systems ED: reviewed and negative except as stated. Constitutional: Reports: as per HPI Cardiovascular: Reports: as per HPI Respiratory: Reports: as per HPI Gastrointestinal: Reports: as per HPI Genitourinary: Reports: as per HPI Neurological: Denies: headache Past Medical History - Past Medical History Medical history: Reports: atrial fibrillation, cancer, COPD, GERD, hyperlipidemia, hypertension, seizures, thyroid disease, TIA, other Surgical history: Reports: cholecystectomy, hysterectomy, orthopedic, other Psychiatric history: Reports: anxiety, depression SMOKE AND FLAME SPECIALIST history: Reports: no SMOKE AND FLAME SPECIALIST history - Social History Smoking Status: Former smoker Smokeless Tobacco Status: No Alcohol use: Reports: none Drug use: Reports: none Physical Exam - General Limitations: no limitations General appearance: alert, in no apparent distress Course Vital Signs Temperature 98.2 F 07/13/18 15:48 Pulse Rate 81 07/13/18 15:48 Respiratory Rate 20 07/13/18 15:48 Blood Pressure 117/70 07/13/18 15:48 O2 Sat by Pulse Oximetry 93 07/13/18 15:48 Temperature 98.2 F 07/13/18 15:48 Pulse Rate 71 07/13/18 20:27 Respiratory Rate 20 07/13/18 20:27 Blood Pressure 139/65 07/13/18 20:27 O2 Sat by Pulse Oximetry 95 07/13/18 20:27 Oxygen Delivery Oxygen Delivery Room Air Medical Decision Making - Lab Data Result diagrams: 07/13/18 17:25 07/13/18 17:25 Lab Results 07/13/18 07/13/18 07/13/18 Range/Units 17:25 17:25 19:30 WBC 8.8 (4.3-11.1) K/mcL RBC 3.72 L (3.82-4.97) M/mcL Hgb 11.0 L D (11.5-15.4) g/dL Hct 32.5 L (35.3-44.9) % MCV 87.4 (83.0-100.0) fL MCH 29.6 (28.0-33.3) pg MCHC 33.8 (31.6-35.5) g/dL RDW 12.8 (11.5-14.5) % Plt Count 246 (140-400) K/mcL MPV 10.3 (9.4-12.4) fL Sodium 118 L* (136-145) mEq/L Potassium 5.9 H (3.5-5.1) mEq/L Chloride 91 L (98-107) mEq/L Carbon Dioxide 23 (23-29) mEq/L BUN 22 (8-23) mg/dL Creatinine 0.77 (0.60-1.20) mg/dL Est GFR ( Amer) > 60 (> 60) Est GFR (Non-Af Amer) > 60 (> 60) BUN/Creatinine Ratio 29 H (6-26) Glucose 140 H (70-105) mg/dL Calculated Osmolality 252 L (280-300) Calcium 8.8 (8.6-10.3) mg/dL Urine Color Yellow (Yellow) Urine Clarity Clear (Clear) Urine pH 6.0 (5.0-8.0) pH Units Ur Specific [place] 1.008 L (1.010-1.025) Urine Protein Negative (Neg-Trace) mg/dL Urine Glucose (UA) Normal (Normal) mg/dL Urine Ketones Negative (Negative) mg/dL Urine Blood Small H (Negative) Urine Nitrite Negative (Negative) Urine Bilirubin Negative (Negative) Urine Urobilinogen Normal (Normal) mg/dL Ur Leukocyte Esterase Large H (Negative) Urine Microscopic RBC 0-3 (0-3) per hpf Urine Microscopic WBC 30-50 H (0-3) per hpf Ur Squamous Epith Cells Many H (None-Few) per lpf Urine Bacteria None Seen (None-Few) per hpf Hyaline Casts None Seen (None-Few) per lpf Ur Culture Indicated? NO. A (NO) Urine Osmolality (300-1090) mOsm/kg Urine Sodium mEq/L 07/13/18 07/13/18 Range/Units 19:30 19:30 WBC (4.3-11.1) K/mcL RBC (3.82-4.97) M/mcL Hgb (11.5-15.4) g/dL Hct (35.3-44.9) % MCV (83.0-100.0) fL MCH (28.0-33.3) pg MCHC (31.6-35.5) g/dL RDW (11.5-14.5) % Plt Count (140-400) K/mcL MPV (9.4-12.4) fL Sodium (136-145) mEq/L Potassium (3.5-5.1) mEq/L Chloride (98-107) mEq/L Carbon Dioxide (23-29) mEq/L BUN (8-23) mg/dL Creatinine (0.60-1.20) mg/dL Est GFR ( Amer) (> 60) Est GFR (Non-Af Amer) (> 60) BUN/Creatinine Ratio (6-26) Glucose (70-105) mg/dL Calculated Osmolality (280-300) Calcium (8.6-10.3) mg/dL Urine Color (Yellow) Urine Clarity (Clear) Urine pH (5.0-8.0) pH Units Ur Specific [place] (1.010-1.025) Urine Protein (Neg-Trace) mg/dL Urine Glucose (UA) (Normal) mg/dL Urine Ketones (Negative) mg/dL Urine Blood (Negative) Urine Nitrite (Negative) Urine Bilirubin (Negative) Urine Urobilinogen (Normal) mg/dL Ur Leukocyte Esterase (Negative) Urine Microscopic RBC (0-3) per hpf Urine Microscopic WBC (0-3) per hpf Ur Squamous Epith Cells (None-Few) per lpf Urine Bacteria (None-Few) per hpf Hyaline Casts (None-Few) per lpf Ur Culture Indicated? (NO) Urine Osmolality 149 L (300-1090) mOsm/kg Urine Sodium 15.4 mEq/L Attestation Statement - Attestation Attestation: I examined this patient and my medical decision-making was reviewed with the RN CLINICAL COORDINATOR/PA/Advanced Practice Nurse/Resident Physician. I agree with the documented findings, disposition and treatment plan as described except to the extent set forth below. I did see the patient is spoke with her and examined her and she does have some summer which her daughter states is chronic and she does have complaint of feeling weak and tired and further story her sodium was 114 and potassium 6.3 and the patient will have an EKG, monitoring we will start IV fluids with normal saline 250 mg to be given over one hour and we will consult nephrology. These orders were just put in. We are in the process of getting the actual labs on paper from the primary care physician. I did review the labs from yesterday was sodium 123. [phone] Roberts and he will fax to: [phone] I did confirm with him that the patient's sodium was in fact 114 and potassium 6.3. I did review the patient's EKG which shows atrial fibrillation with rate of 71 but without evidence of skin arrhythmia or peaked T waves and the patient's labs were faxed over but they did go over to get scanned without me seeing them so we will just go ahead and we order the labs here as well as urine electrolytes and this was discussed with Dr. Jimenez the preschool disability teacher and this is being further discussed with the hospitalist at this time for admission. Patient received 250 mL 0.9NS over the first hour 1920
[2018-07-13 19:27] LABS: Hematocrit 32.5 % (35.3-44.9); Mean Corpuscular HGB Conc 33.8 g/dL (31.6-35.5); Mean Corpuscular Hemoglobin 29.6 pg (28.0-33.3); Mean Corpuscular Volume 87.4 fL (83.0-100.0); Mean Platelet Volume 10.3 fL (9.4-12.4); Platelet Count 246 K/mcL (140-400); Red Blood Count 3.72 M/mcL (3.82-4.97); Red Cell Distribution Width 12.8 % (11.5-14.5)
[2018-07-13] MEDS ORDERED: Insulin Human Regular 10 UNIT in 0.9 % Sodium Chloride 10 ML IV ONE (19:33)
[2018-07-13] MEDS ORDERED: *HR* Dextrose 50 % in Water (Syg) 50 ML SYRINGE IVP ONE (19:33)
[2018-07-13 19:35] LABS: BUN/Creatinine Ratio 29 (6-26); Blood Urea Nitrogen 22 mg/dL (8-23); Calcium 8.8 mg/dL (8.6-10.3); Carbon Dioxide 23 mEq/L (23-29); Chloride 91 mEq/L (98-107); Glucose 140 mg/dL (70-105); Osmolality,Calculated 252 (280-300); Potassium 5.9 mEq/L (3.5-5.1); Sodium 118 mEq/L (136-145); eGFR For Non-African Americans > 60 (> 60)
--- NOTE | 2018-07-13 19:40 | Internal Med History&Physical ---
Date of Encounter: 07/13/18 Time of Encounter: 19:40 Internal Medicine - H&P: HPI Chief complaint: Abnormal Electrolytes History of present illness: Ms. Brunson is a 83 year old female with multiple comorbidities including previous history of stroke, hypertension, COPD on 2 L at night, coronary artery disease, hypothyroidism and history of seizures who was referred to the ED by her primary care physician after findings of electro-lyte abnormalities. Per outpatient labs patient was noted to have a sodium of 114 and a potassium of 6.3. On arrival patient appeared to be at baseline mentation with no focal abnormalities. Initial EKG did not show any acute changes noted patient endorse any chest pain or palpitations. Case was discussed with Dr. Jimenez with nephrol jamie who recommended giving patient a bolus of 250 mL's and starting on gentle hydration with sodium checks every 4-6 hours. Patient otherwise was in her usual state of health. She does admit that she does not drink as much water she supposed to stating she has her daily hot tea and 3 ensures. Otherwise no reports of any nausea, vomiting or diarrhea. Patient does have a colostomy bag in place but denies any increased stool output. She had been seen by her PCP for respiratory symptoms and was diagnosed with acute bronchitis and is currently being treated with doxycycline and Augmentin in addition to prednisone. Past Med Surg Social Fam HX - Past Medical History Medical history: atrial fibrillation, cancer, COPD, GERD, hyperlipidemia, hypertension, seizures, thyroid disease, TIA, other Additional medical history: TREMORS Psychiatric history: anxiety, depression - Past Surgical History Surgical History: cholecystectomy, hysterectomy, orthopedic, other Additional surgical history: large intestine removed. back surgery. hip replacement - Social History Smoking Status: Former smoker Smokeless Tobacco Status: No Alcohol use: none Drug use: none - Family History Mother Living Status: Hx Family Cardiac Disorders: Yes Hx Family Endocrine Disorder: Yes Father Hx Family Respiratory Disorders: Yes Hx Family Cancer: Yes Brother Hx Family Cancer: Yes Internal Medicine - H&P: Meds Budesonide/Formoterol 160/4.5 [Symbicort 160/4.5] 2 puff IH BIDR 11/13/15 [History] Ergocalciferol (VITAMIN D2) [Vitamin D2] 2,000 unit PO DAILY 11/13/15 [History] Primidone [Mysoline] 50 mg PO BID 11/13/15 [History] Ropinirole HCl [Requip] 5 mg PO HS 11/13/15 [History] Simvastatin [Zocor] 40 mg PO HS 11/13/15 [History] Amitriptyline HCl 50 mg PO HS 05/01/17 [History] clonazePAM [Klonopin] 0.5 mg PO HS #5 tablet 05/05/17 [Rx] Magnesium Oxide [Magnesium] 400 mg PO BID 11/05/17 [History] Pantoprazole Sodium [Protonix] 40 mg PO DAILY 11/06/17 [History] Rivaroxaban [Xarelto] 20 mg PO DAILY 03/09/18 [History] amLODIPine [Norvasc] 10 mg PO DAILY 03/09/18 [History] Bethanechol [Urecholine] 50 mg PO BID 03/23/18 [History] Bifidobacterium Infantis [Align] 4 mg PO DAILY 03/23/18 [History] Cranberry 500 mg PO DAILY 03/23/18 [History] Cyanocobalamin (Vitamin B-12) [Vitamin B-12] 1,000 mcg PO DAILY 03/23/18 [History] Fluticasone Propionate Nasal [Flonase] 50 mcg NS DAILY 03/23/18 [History] Metoprolol [Lopressor] 25 mg PO BID 03/23/18 [History] Omeprazole [PriLOSEC] 40 mg PO DAILY 03/23/18 [History] Albuterol Sulfate [Proair Hfa] 1 puff IH PRN PRN 06/01/18 [History] Ferrous Sulfate [Iron] 65 mg PO DAILY 06/01/18 [History] Ipratropium/Albuterol Neb [Duoneb] 3 ml IH Q6HR PRN 06/01/18 [History] Melatonin 5 mg PO HS 06/01/18 [History] Cyclobenzaprine [Flexeril] 10 mg PO BID 06/15/18 [History] Allergy/AdvReac Type Severity Reaction Status Date / Time morphine Allergy Fainting Verified 06/22/18 08:18 propoxyphene [From Darvon] Allergy Fainting Verified 06/22/18 08:18 aspirin [ASA] AdvReac See Verified 06/22/18 08:18 Comments codeine AdvReac Fainting Verified 06/22/18 08:18 gabapentin AdvReac Nausea Verified 06/22/18 08:18 Iodinated Contrast- Oral and AdvReac "knocked Verified 06/22/18 08:18 IV Dye out" [Iodinated Contrast Media - IV Dye] pentazocine [From Talwin] AdvReac Fainting Verified 06/22/18 08:18 Sulfa (Sulfonamide AdvReac Nausea Verified 06/22/18 08:18 Antibiotics) catgut Allergy Rash Uncoded 06/22/18 08:18 All Systems PM: A 10-system review of systems was performed and is negative for pertinent findings except as documented above in the HPI. - Constitutional Constitutional: no chills, no fever(s), no night sweats - EENT Eyes: no change in vision, no discharge, no pain, no photophobia Ears: no ear discharge, no ear pain, no tinnitus Nose, mouth and throat: no dysphagia, no nasal discharge, no neck pain, no sore throat - Cardiovascular Cardiovascular ROS IM: no chest pain, no diaphoresis, no dyspnea, no lightheadedness, no palpitations, no syncope - Respiratory Respiratory: no cough, no dyspnea, no wheezing, no excessive phlegm production - Gastrointestinal Gastrointestinal: no abdominal pain, no diarrhea, no hematemesis, no hematochezia, no melena, no nausea, no vomiting - Genitourinary Genitourinary: no change in urinary stream, no dysuria, no flank pain, no hematuria - Musculoskeletal Musculoskeletal ROS IM: no numbness, no tingling - Integumentary Integumentary IM: no rash, no unusual bruising - Neurological Neurological ROS: no confusion, no convulsions, no focal weakness, no numbness, no tingling, no tremor(s) - Hematologic/Lymphatic Hematologic/Lymphatic: no easy bruising - Constitutional Vitals: Temp Pulse Resp BP Pulse Ox 98.2 F 72 16 121/78 99 07/13/18 15:48 07/13/18 17:33 07/13/18 17:33 07/13/18 17:33 07/13/18 17:33 Exam: General: Alert and oriented Skin:Normal color, no rash, no lesions. HEENT:EOM, pupils equal, round and reactive. Cardiovascular:Normal S1 & S2, no rubs, murmurs or gallops. No JVD. Pulse regular. Lungs:Normal breath sounds, no wheezes or crackles. Abdomen:Soft, non-tender, no rigidity. Extremities:No deformity, no edema or tenderness, no joint swelling or clubbing. Neurological:Normal cognition and motor skills. Pulses:Carotid and radial pulses normal +2. Rest of the physical exam is non contributory Internal Med - H&P Results - Labs CBC & Chem 7: 07/14/18 01:45 07/14/18 04:50 Labs: Short CBC 07/13/18 Range/Units 17:25 WBC 8.8 (4.3-11.1) K/mcL Hgb 11.0 L D (11.5-15.4) g/dL Hct 32.5 L (35.3-44.9) % Plt Count 246 (140-400) K/mcL BMP 07/13/18 17:25 Sodium 118 L* Potassium 5.9 H Chloride 91 L Carbon Dioxide 23 BUN 22 Creatinine 0.77 Glucose 140 H Calcium 8.8 - Assessment and plan (1) Hyponatremia Current Visit: Yes Status: Acute Assessment and plan: Moderate to severe hyponatremia of 114 assessed on outpatient lab work. Suspect hypovolemic hyponatremia secondary to decreased by mouth intake as patient reports she does not drink much water aside from her daily hot tea and 3 ensures daily. No neurological changes on examination. 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 Repeat sodium here in the ED showed a value of 118. Case discussed with nephrology who recommended 250 mL bolus for now and then gentle hydration with sodium checks every 4-6 hours. -We will reassess sodium level after the 250 mL bolus. If sodium found to be between 120 and 122, will hold fluids. Otherwise we will continue fluids at 100 mL an hour with sodium checks every 4-6 hours with goal correction between 6-8 mEq over the next 24 hours. -Check serum osmolality, urine osmolality, urine sodium, TSH -Nephrology consult (2) Hyperkalemia Current Visit: Yes Status: Acute Assessment and plan: Hyperkalemia with outpatient blood work showing a potassium of 6.3. On arrival EKG was relatively unchanged when compared to previous EKG. Nonetheless, given her history of coronary artery disease and atrial fibrillation, I recommended giving insulin and dextrose. Repeat potassium in the ED found to be 5.9. Case discussed with Dr. Jimenez with nephrology who suspects that potassium should further improve with hydration. -Telemetry -We will monitor potassium levels every 4-6 hours. (3) Acute bronchitis Current Visit: Yes Status: Acute Assessment and plan: Patient was recently started on antibiotics for presumed acute bronchitis with oral doxycycline and Augmentin as well as 10 mg of prednisone. Patient has taken her antibiotics for the day. -Consider resuming treatment. Qualifiers: Bronchitis organism: unspecified organism Qualified Code(s): J20.9 - Acute bronchitis, unspecified (4) A-fib Current Visit: No Status: Chronic Assessment and plan: History of atrial fibrillation rate controlled on anticoagulation. -Continue Lopressor and Xarelto Qualifiers: Atrial fibrillation type: unspecified Qualified Code(s): I48.91 - Unspecified atrial fibrillation (5) CAD (coronary artery disease) Current Visit: No Status: Chronic Assessment and plan: History of coronary artery disease. -Continue medical management with home medications Qualifiers: Coronary Disease-Associated Artery/Lesion type: unspecified vessel or lesion type [place] vs. transplanted heart: [place] heart Associated angina: without angina Qualified Code(s): I25.10 - Atherosclerotic heart disease of [place] coronary artery without angina pectoris (6) COPD (chronic obstructive pulmonary disease) Current Visit: No Status: Chronic Assessment and plan: History of COPD on 2 L nasal cannula at night. No evidence of an acute exacerbation. -Resume home inhalers Qualifiers: COPD type: unspecified COPD Qualified Code(s): J44.9 - Chronic obstructive pulmonary disease, unspecified (7) DVT prophylaxis Current Visit: No Status: Acute Assessment and plan: Patient on anticoagulation - Time Spent With Patient Total time spent is greater than 50% in coordination of care (as documented) at patient's floor/unit and/or counseling patient:
[2018-07-13 19:41] LABS: Bilirubin,Urine Negative (Negative); Blood,Urine Small (Negative); Clarity,Urine Clear (Clear); Color,Urine Yellow (Yellow); Glucose,Urine (UA) Normal (Normal); Ketones,Urine Negative (Negative); Leukocyte Esterase,Urine Large (Negative); Nitrite,Urine Negative (Negative); Protein,Urine Negative (Neg-Trace); Specific Gravity,Urine 1.008 (1.010-1.025); Urobilinogen,Urine Normal (Normal)
[2018-07-13 19:43] LABS: Bacteria,Urine None Seen per hpf (None-Few); Hyaline Casts,Urine None Seen per lpf (None-Few); RBC,Urine 0-3 per hpf (0-3); Squamous Epithelial Cell,Urine Many per lpf (None-Few); WBC,Urine 30-50 per hpf (0-3)
[2018-07-13] MEDS ORDERED: Naloxone 0.4 MG/ML INJ IVP PRN (22:02)
[2018-07-13] MEDS ORDERED: Ipratropium/Albuterol Neb 3 ML IH PRN (23:43)
[2018-07-14 00:17] LABS: BUN/Creatinine Ratio 28 (6-26); Blood Urea Nitrogen 20 mg/dL (8-23); Carbon Dioxide 20 mEq/L (23-29); Chloride 95 mEq/L (98-107); Glucose 110 mg/dL (70-105); Osmolality,Calculated 261 (280-300); Potassium 4.7 mEq/L (3.5-5.1); Sodium 124 mEq/L (136-145); eGFR For Non-African Americans > 60 (> 60)
[2018-07-14] MEDS ORDERED: D5% in Water 1,000 ML IVC SCH (00:30)
[2018-07-14 01:59] LABS: Basophils # 0.1 K/mcL (0.0-0.2); Basophils % 0.7 %; Eosinophils # 0.1 K/mcL (0.0-0.6); Eosinophils % 1.4 %; Hematocrit 33.3 % (35.3-44.9); Hemoglobin 11.1 g/dL (11.5-15.4); Lymphocytes # 0.6 K/mcL (0.6-4.6); Lymphocytes % 6.1 %; Mean Corpuscular HGB Conc 33.3 g/dL (31.6-35.5); Mean Corpuscular Hemoglobin 29.5 pg (28.0-33.3); Mean Corpuscular Volume 88.6 fL (83.0-100.0); Mean Platelet Volume 9.8 fL (9.4-12.4); Monocytes # 1.2 K/mcL (0.0-1.3); Monocytes % 11.7 %; Platelet Count 226 K/mcL (140-400); Red Blood Count 3.76 M/mcL (3.82-4.97); Red Cell Distribution Width 12.8 % (11.5-14.5); Segmented Neutrophils % 71.1 %
[2018-07-14 02:08] LABS: Neutrophils # 7.3 K/mcL (1.6-8.9)
[2018-07-14 02:15] LABS: BUN/Creatinine Ratio 28 (6-26); Blood Urea Nitrogen 20 mg/dL (8-23); Carbon Dioxide 21 mEq/L (23-29); Chloride 95 mEq/L (98-107); Glucose 98 mg/dL (70-105); Osmolality,Calculated 261 (280-300); Potassium 4.3 mEq/L (3.5-5.1); Sodium 124 mEq/L (136-145); eGFR For Non-African Americans > 60 (> 60)
[2018-07-14 02:47] LABS: Hypersegmented Neutrophils Present (Not Present); Platelet Estimate Normal (Normal)
[2018-07-14 05:22] LABS: BUN/Creatinine Ratio 29 (6-26); Blood Urea Nitrogen 19 mg/dL (8-23); Calcium 8.8 mg/dL (8.6-10.3); Carbon Dioxide 23 mEq/L (23-29); Chloride 94 mEq/L (98-107); Glucose 154 mg/dL (70-105); Osmolality,Calculated 261 (280-300); Potassium 4.3 mEq/L (3.5-5.1); Sodium 123 mEq/L (136-145); eGFR For Non-African Americans > 60 (> 60)
[2018-07-14 07:57] LABS: Troponin I < 0.03 ng/mL (< 0.04)
[2018-07-14] MEDS: Fluticasone Propionate Nasal 50 MCG/SPRAY BOTTLE NS SCH (08:14)
[2018-07-14] MEDS: Primidone 50 MG TABLET PO SCH ×2 (08:14→20:55)
[2018-07-14] MEDS: *HR* Rivaroxaban 10 MG TABLET PO SCH (08:14)
--- NOTE | 2018-07-14 08:14 | Internal Med Progress Note ---
Hospitalist Progress Note - Encounter Date of Encounter: 07/14/18 - Exam Vitals: Temp Pulse Resp BP Pulse Ox 97.8 F 76 18 105/65 97 07/14/18 07:34 07/14/18 07:34 07/14/18 07:34 07/14/18 07:34 07/14/18 07:34 - Assessment and Plan (1) COPD (chronic obstructive pulmonary disease) Current Visit: No Status: Chronic (2) DVT prophylaxis Current Visit: No Status: Acute (3) CAD (coronary artery disease) Current Visit: No Status: Chronic (4) A-fib Current Visit: No Status: Chronic (5) Hyponatremia Current Visit: Yes Status: Acute (6) Hyperkalemia Current Visit: Yes Status: Acute (7) Acute bronchitis Current Visit: Yes Status: Acute - Time Spent with Patient Total time spent is greater than 50% in coordination of care (as documented) at patient's floor/unit and/or counseling patient: Internal Medicine: Result - Labs CBC & Chem 7: 07/14/18 01:45 07/14/18 04:50 Labs: Short CBC 07/13/18 07/14/18 Range/Units 17:25 01:45 WBC 8.8 10.3 (4.3-11.1) K/mcL Hgb 11.0 L D 11.1 L (11.5-15.4) g/dL Hct 32.5 L 33.3 L (35.3-44.9) % Plt Count 246 226 (140-400) K/mcL Neutrophils # 7.3 (1.6-8.9) K/mcL BMP 07/13/18 07/13/18 07/14/18 17:25 22:13 01:45 Sodium 118 L* 124 L 124 L Potassium 5.9 H 4.7 4.3 Chloride 91 L 95 L 95 L Carbon Dioxide 23 20 L 21 L BUN 22 20 20 Creatinine 0.77 0.72 0.72 Glucose 140 H 110 H 98 Calcium 8.8 9.0 9.0 07/14/18 04:50 Sodium 123 L Potassium 4.3 Chloride 94 L Carbon Dioxide 23 BUN 19 Creatinine 0.66 Glucose 154 H Calcium 8.8 Cardiac Enzymes 07/14/18 Range/Units 04:50 Troponin I < 0.03 (< 0.04) ng/mL Urine 07/13/18 Range/Units 19:30 Urine Color Yellow (Yellow) Urine Clarity Clear (Clear) Urine pH 6.0 (5.0-8.0) pH Units Ur Specific [place] 1.008 L (1.010-1.025) Urine Protein Negative (Neg-Trace) mg/dL Urine Glucose (UA) Normal (Normal) mg/dL Consult Discharge Plan - Plan Referrals: Jamil Reece MD [Primary Care Provider] - (1) COPD (chronic obstructive pulmonary disease) Qualifiers: COPD type: unspecified COPD Qualified Code(s): J44.9 - Chronic obstructive pulmonary disease, unspecified (3) CAD (coronary artery disease) Qualifiers: Coronary Disease-Associated Artery/Lesion type: unspecified vessel or lesion type [place] vs. transplanted heart: [place] heart Associated angina: without angina Qualified Code(s): I25.10 - Atherosclerotic heart disease of [place] coronary artery without angina pectoris (4) A-fib Qualifiers: Atrial fibrillation type: unspecified Qualified Code(s): I48.91 - Unspecified atrial fibrillation (7) Acute bronchitis Qualifiers: Bronchitis organism: unspecified organism Qualified Code(s): J20.9 - Acute bronchitis, unspecified
[2018-07-14] MEDS: (Bifidobacterium Infantis [Align] 4 MG) PO SCH (08:15)
[2018-07-14] MEDS ORDERED: amLODIPine 5 MG TABLET PO SCH (09:00)
[2018-07-14 09:08] LABS: BUN/Creatinine Ratio 26 (6-26); Blood Urea Nitrogen 18 mg/dL (8-23); Carbon Dioxide 24 mEq/L (23-29); Chloride 94 mEq/L (98-107); Glucose 116 mg/dL (70-105); Osmolality,Calculated 261 (280-300); Potassium 4.6 mEq/L (3.5-5.1); Sodium 124 mEq/L (136-145); eGFR For Non-African Americans > 60 (> 60)
--- NOTE | 2018-07-14 09:17 | Internal Med Progress Note ---
<Zenon Villalta - Last Filed: 07/14/18 18:24> Hospitalist Progress Note - Encounter Date of Encounter: 07/14/18 Time of Encounter: 08:45 - Subjective Interval History: The patient is a 83 year-old female with PMHx stroke, HTN, COPD, CAD, hypothyroidism, and history of seizures who had presented to the ED with hyponatremia (Na 118) and hyperkalemia (K 5.9). She denied any chest pain or palpitations at the time and had no focal neuro deficits or AMS. EKG showed atrial fibrillation with ventricular rate of 71, but without peaked T waves or other arrhythmias. The patient admits minimal water intake limited to hot tea and ensures and she was being treated by PCP with doxycycline and Augmentin with prednisone for recently diagnosed acute bronchitis. On exam this am, patient admits feeling better compared to yesterday but still some baseline fatigue and weakness without any chest pain, fever, chills, nausea, vomiting, muscle aches. She also endorses some lower abdominal pressure related to her chronic urinary incontinence which nursing assists her ambulation to reach the toilet in time; output from ostomy has been normal with some intermittent leaking. Patient started cycle 3 of chemo treatment on 06/22/18 and she has had some mild thrush however her appetite has improved compared to prior weeks. - Exam Vitals: Temp Pulse Resp BP Pulse Ox 97.8 F 76 18 105/65 97 07/14/18 07:34 07/14/18 07:34 07/14/18 07:34 07/14/18 07:34 07/14/18 07:34 Exam: Gen: Vitals noted. No acute distress. Patient appears frail. Eyes: anicteric sclerae, moist conjunctivae; no lid-lag; Pupils equal and reactive to light HENT: Atraumatic; oropharynx clear with dry mucous membranes and mild thrush, no other mucosal ulcerations; normal hard and soft palate Neck: Trachea midline; supple, no thyromegaly or lymphadenopathy Cardiac: Irregularly irregular rhythm, regular rate, no murmur, +S1/S2 Pulmonary: CTA bilaterally, no wheezes, rales or rhonchi, equal chest expansion Abdomen: soft, nontender, no guarding. No masses or hepatosplenomegaly MSK: ROM intact, no joint swelling noted Extremities: no BLE edema, nontender calf, no cyanosis or clubbing Skin: Normal temperature, dry skin; no rash, ulcers or subcutaneous nodules Neuro: Tardive dyskinesia movement of mouth present, moves all extremities Psych: Appropriate mood and behavior. - Assessment and Plan (1) Hyponatremia Current Visit: Yes Status: Acute Assessment and Plan: Na at 124, up from 118 after 15 hours of IVF per nephro. Considering likely hypovolemic hyponatremia due to admitted minimal fluid intake of only hot tea and 3 ensures daily. Differential adrenal insufficiency related to acute illness affecting kidney function, will monitor response to fluids. No AMS or other focal neuro changes. Nephrology was consulted for initial fluid bolus. Consider changing fluids to D5 given Na of 126 would be the max ideal for 24 hours of correction and already 124 attained. -Continue Na levels q6 hours with neuro checks -Encourage aggressive PO intake of fluids -Nephro on consult for IVF management (2) Hyperkalemia Current Visit: Yes Status: Acute Assessment and Plan: Potassium at 4.6, down from 5.9 in ED. EKGs show sinus rhythm and possible left ventricular hypertrophy without other significant findings. Considering etios related to hyponatremia as described above including LESA, adrenal insufficiency, rhabdomylosis, tumor lysis. BP has been downtrending during the day, will try steroid challenge to see response in BP and potassium levels. Potassium should also improve with continuous hydration. -Measure CK, Phosphate, ABG -Monitor potassium levels with sodium checks q6 hours. -Continue IVF per Nephro -Continue Telemetry (3) Acute bronchitis Current Visit: Yes Status: Acute Assessment and Plan: No complaints of dyspnea, wheezing, or cough. On exam lungs CTA rosa without wheezes, rales, rhonchi. -Complete original steroid taper with 3 days remaining of prednisone 30mg PO for 3 days. Discontinue doxycycline and Augmentin as not indicated for acute bronchitis and patient improving. (4) A-fib Current Visit: No Status: Chronic Assessment and Plan: History of atrial fibrillation with rate control and anticoagulation. -Continue Xarelto and Lopressor. (5) CAD (coronary artery disease) Current Visit: No Status: Chronic Assessment and Plan: History of coronary artery disease. -Continue home medication. (6) COPD (chronic obstructive pulmonary disease) Current Visit: No Status: Chronic Assessment and Plan: No acute exacerbation. -Continue oxygen [place] 2L and home symbicort. (7) DVT prophylaxis Current Visit: No Status: Acute Assessment and Plan: Decreased mobility and relatively low activity -On anticoagulation related to Afib. - Time Spent with Patient Total time spent is greater than 50% in coordination of care (as documented) at patient's floor/unit and/or counseling patient: Internal Medicine: Result - Labs CBC & Chem 7: 07/14/18 01:45 07/14/18 15:18 Labs: Short CBC 07/13/18 07/14/18 Range/Units 17:25 01:45 WBC 8.8 10.3 (4.3-11.1) K/mcL Hgb 11.0 L D 11.1 L (11.5-15.4) g/dL Hct 32.5 L 33.3 L (35.3-44.9) % Plt Count 246 226 (140-400) K/mcL Neutrophils # 7.3 (1.6-8.9) K/mcL BMP 07/13/18 07/13/18 07/14/18 17:25 22:13 01:45 Sodium 118 L* 124 L 124 L Potassium 5.9 H 4.7 4.3 Chloride 91 L 95 L 95 L Carbon Dioxide 23 20 L 21 L BUN 22 20 20 Creatinine 0.77 0.72 0.72 Glucose 140 H 110 H 98 Calcium 8.8 9.0 9.0 07/14/18 07/14/18 04:50 08:28 Sodium 123 L 124 L Potassium 4.3 4.6 Chloride 94 L 94 L Carbon Dioxide 23 24 BUN 19 18 Creatinine 0.66 0.69 Glucose 154 H 116 H Calcium 8.8 9.0 Cardiac Enzymes 07/14/18 Range/Units 04:50 Troponin I < 0.03 (< 0.04) ng/mL Urine 07/13/18 Range/Units 19:30 Urine Color Yellow (Yellow) Urine Clarity Clear (Clear) Urine pH 6.0 (5.0-8.0) pH Units Ur Specific [place] 1.008 L (1.010-1.025) Urine Protein Negative (Neg-Trace) mg/dL Urine Glucose (UA) Normal (Normal) mg/dL Consult Discharge Plan - Plan Referrals: Jamil Reece MD [Primary Care Provider] - <Ashley Iglesias - Last Filed: 07/14/18 21:35> Hospitalist Progress Note - Encounter Date of Encounter: 07/14/18 - Exam Vitals: Temp Pulse Resp BP Pulse Ox 98 F 74 16 97/64 97 07/14/18 16:44 07/14/18 16:44 07/14/18 19:46 07/14/18 16:44 07/14/18 19:46 - Assessment and Plan (1) COPD (chronic obstructive pulmonary disease) Current Visit: No Status: Chronic (2) DVT prophylaxis Current Visit: No Status: Acute (3) CAD (coronary artery disease) Current Visit: No Status: Chronic (4) A-fib Current Visit: No Status: Chronic (5) Hyponatremia Current Visit: Yes Status: Acute (6) Hyperkalemia Current Visit: Yes Status: Acute (7) Acute bronchitis Current Visit: Yes Status: Acute - Time Spent with Patient Total time spent is greater than 50% in coordination of care (as documented) at patient's floor/unit and/or counseling patient: Internal Medicine: Result - Labs CBC & Chem 7: 07/14/18 01:45 07/14/18 15:18 Labs: Short CBC 07/14/18 Range/Units 01:45 WBC 10.3 (4.3-11.1) K/mcL Hgb 11.1 L (11.5-15.4) g/dL Hct 33.3 L (35.3-44.9) % Plt Count 226 (140-400) K/mcL Neutrophils # 7.3 (1.6-8.9) K/mcL BMP 07/13/18 07/14/18 07/14/18 22:13 01:45 04:50 Sodium 124 L 124 L 123 L Potassium 4.7 4.3 4.3 Chloride 95 L 95 L 94 L Carbon Dioxide 20 L 21 L 23 BUN 20 20 19 Creatinine 0.72 0.72 0.66 Glucose 110 H 98 154 H Calcium 9.0 9.0 8.8 07/14/18 07/14/18 08:28 15:18 Sodium 124 L 123 L Potassium 4.6 5.0 Chloride 94 L 95 L Carbon Dioxide 24 23 BUN 18 20 Creatinine 0.69 1.04 Glucose 116 H 140 H Calcium 9.0 8.9 Cardiac Enzymes 07/14/18 Range/Units 04:50 Troponin I < 0.03 (< 0.04) ng/mL - ABG Interpretation ABG results: ABG ABG pH 7.36 pH Units (7.32-7.45) 07/14/18 16:59 ABG pCO2 38 mmHg (35-45) 07/14/18 16:59 ABG pO2 90 mmHg (85-104) 07/14/18 16:59 ABG O2 Saturation 97 % (95-98) 07/14/18 16:59 - Attending Attestation I examined this patient and my medical decision-making was reviewed with the Medical Student and the Resident Physician. I agree with the documented findings, disposition and treatment plan as described except to the extent set forth below. 83 year old female with history of follicular lymphoma on obinutuzumab, bendamustine, atrial fibrillation on Xarelto, COPD on 2L O2 at home, history of CVA, CAD, seizures, ischemic colitis status-post colectomy presented by recommendations of primary care provider due to abnormal labs seen with sodium of 114 and potassium of 6.3 which prompted patient to be seen in ED. On arrival to ED repeat labs showed patient had sodium of 118, and potassium 5.8. Urine pH was 6.0. She was started on fluid and cautiously with IV fluids sodium is improved to 124. Potassium improved with IV fluids as well, but this afternoon did go back up to 5.0. Upon re-assessments throughout the day, BP was noted to be lower than her normal at 90s/60s, with HR within normal limits. She admits to poor appetite during this time which is likely contributing to her electrolyte abnormalities. There is concern that she may have adrenal insufficiency given these findings. Of note AM cortisol was 8.0 but she has been taking Prednisone which limits the utility of this lab. Continue normal saline per recommendations of Nephrology. Discussed case with Nephrology and will also stress dose patient with Solu Cortef. Do not suspect this is related to Prednisone since she has only been taking this for a few days. She will be monitored closely with serial labs and close assessment of vital signs. I discussed plan with patient and her niece who was at bedside later during the day. <Zenon Villalta - Last Filed: 07/14/18 18:24> (3) Acute bronchitis Qualifiers: Bronchitis organism: unspecified organism Qualified Code(s): J20.9 - Acute bronchitis, unspecified (4) A-fib Qualifiers: Atrial fibrillation type: unspecified Qualified Code(s): I48.91 - Unspecified atrial fibrillation (5) CAD (coronary artery disease) Qualifiers: Coronary Disease-Associated Artery/Lesion type: unspecified vessel or lesion type [place] vs. transplanted heart: [place] heart Associated angina: without angina Qualified Code(s): I25.10 - Atherosclerotic heart disease of [place] coronary artery without angina pectoris (6) COPD (chronic obstructive pulmonary disease) Qualifiers: COPD type: unspecified COPD Qualified Code(s): J44.9 - Chronic obstructive pulmonary disease, unspecified <Ashley Iglesias - Last Filed: 07/14/18 21:35> (1) COPD (chronic obstructive pulmonary disease) Qualifiers: COPD type: unspecified COPD Qualified Code(s): J44.9 - Chronic obstructive pulmonary disease, unspecified (3) CAD (coronary artery disease) Qualifiers: Coronary Disease-Associated Artery/Lesion type: unspecified vessel or lesion type [place] vs. transplanted heart: [place] heart Associated angina: without angina Qualified Code(s): I25.10 - Atherosclerotic heart disease of [place] coronary artery without angina pectoris (4) A-fib Qualifiers: Atrial fibrillation type: unspecified Qualified Code(s): I48.91 - Unspecified atrial fibrillation (7) Acute bronchitis Qualifiers: Bronchitis organism: unspecified organism Qualified Code(s): J20.9 - Acute bronchitis, unspecified
[2018-07-14 10:22] LABS: Uric Acid 4.7 mg/dL (2.3-7.6)
--- NOTE | 2018-07-14 10:28 | Nephrology Consult Note ---
<Danita Pierreekah Landy - Last Filed: 07/14/18 14:24> Date of Encounter: 07/14/18 Time of Encounter: 10:04 Assessment and Plan (1) Hyponatremia Current Visit: Yes Status: Acute Initial NA per our records was 118 is now 123. 1 liter NS ordered. Uric acid, TSH, and Cortisol ordered. Urine Osmo and sodium noted, this is probably not SIADH. Liberalize salt in diet. Will continue to aim for the goal of correcting the NA slowly only raising 6-8 meq's in the first 24 hours. (2) Hyperkalemia Current Visit: Yes Status: Acute Resolving is 4.3. (3) Hypertension Current Visit: No Status: Chronic Stable, 105/65. Qualifiers: Hypertension type: essential hypertension Qualified Code(s): I10 - Essential (primary) hypertension (4) Acute bronchitis Current Visit: Yes Status: Acute Per primary. Qualifiers: Bronchitis organism: unspecified organism Qualified Code(s): J20.9 - Acute bronchitis, unspecified History of Present Illness - Reason for Consult Consult date: 07/14/18 hyponatremia, hyperkalemia Requesting physician: Yumiko Irving - Chief Complaint Hyponatremia/Hyperkalemia - History of Present Illness Ms. Brunson is an 83 year old female presented into the ED At the request of her PCP for abnormal labs. Potassium was 5.9, sodium was 123 per our records. She was just recently seen for acute bronchitis and was prescribed doxycycline, Augmentin and prednisone. Sodium went down to 118, is now up to 124. PMH: COPD, GERD, HLD, HTN. Currently being treated for Lymphoma, is getting chemo 2 days/month, she was diagnosed in April of 2018. Denies nausea, vomiting, diarrhea. Denies chest pain, admits to shortness of breath, is on home oxygen for COPD. Hyponatremia multifactorial related to poor po intake at home due to bronchitis and possibly to chemo treatment. Past Med Surg Social Fam HX - Past Medical History Medical history: atrial fibrillation, cancer, COPD, GERD, hyperlipidemia, hypertension, seizures, thyroid disease, TIA, other Additional medical history: TREMORS Psychiatric history: anxiety, depression - Past Surgical History Surgical History: cholecystectomy, hysterectomy, orthopedic, other Additional surgical history: large intestine removed. back surgery. hip replacement - Social History Smoking Status: Former smoker Smokeless Tobacco Status: No Alcohol use: none Drug use: none - Family History Brother Hx Family Cancer: Yes Father Hx Family Respiratory Disorders: Yes Hx Family Cancer: Yes Mother Living Status: Hx Family Cardiac Disorders: Yes Hx Family Endocrine Disorder: Yes Medications and Allergies RX: Budesonide/Formoterol 160/4.5 [Symbicort 160/4.5] 2 puff IH BIDR 11/13/15 [History] RX: Ergocalciferol (VITAMIN D2) [Vitamin D2] 2,000 unit PO DAILY 11/13/15 [History] RX: Primidone [Mysoline] 50 mg PO BID 11/13/15 [History] RX: Ropinirole HCl [Requip] 5 mg PO HS 11/13/15 [History] RX: Simvastatin [Zocor] 40 mg PO HS 11/13/15 [History] RX: Amitriptyline HCl 50 mg PO HS 05/01/17 [History] RX: clonazePAM [Klonopin] 0.5 mg PO HS #5 tablet 05/05/17 [Rx] RX: Magnesium Oxide [Magnesium] 400 mg PO BID 11/05/17 [History] RX: Pantoprazole Sodium [Protonix] 40 mg PO DAILY 11/06/17 [History] RX: Rivaroxaban [Xarelto] 20 mg PO DAILY 03/09/18 [History] RX: amLODIPine [Norvasc] 10 mg PO DAILY 03/09/18 [History] RX: Bethanechol [Urecholine] 50 mg PO BID 03/23/18 [History] RX: Bifidobacterium Infantis [Align] 4 mg PO DAILY 03/23/18 [History] RX: Cranberry 500 mg PO DAILY 03/23/18 [History] RX: Cyanocobalamin (Vitamin B-12) [Vitamin B-12] 1,000 mcg PO DAILY 03/23/18 [History] RX: Fluticasone Propionate Nasal [Flonase] 50 mcg NS DAILY 03/23/18 [History] RX: Metoprolol [Lopressor] 25 mg PO BID 03/23/18 [History] RX: Omeprazole [PriLOSEC] 40 mg PO DAILY 03/23/18 [History] RX: Albuterol Sulfate [Proair Hfa] 1 puff IH PRN PRN 06/01/18 [History] RX: Ferrous Sulfate [Iron] 65 mg PO DAILY 06/01/18 [History] RX: Ipratropium/Albuterol Neb [Duoneb] 3 ml IH Q6HR PRN 06/01/18 [History] RX: Melatonin 5 mg PO HS 06/01/18 [History] Cyclobenzaprine [Flexeril] 10 mg PO BID 06/15/18 [History] Allergy/AdvReac Type Severity Reaction Status Date / Time morphine Allergy Fainting Verified 06/22/18 08:18 propoxyphene [From Darvon] Allergy Fainting Verified 06/22/18 08:18 aspirin [ASA] AdvReac See Verified 06/22/18 08:18 Comments codeine AdvReac Fainting Verified 06/22/18 08:18 gabapentin AdvReac Nausea Verified 06/22/18 08:18 Iodinated Contrast- Oral and AdvReac "knocked Verified 06/22/18 08:18 IV Dye out" [Iodinated Contrast Media - IV Dye] pentazocine [From Talwin] AdvReac Fainting Verified 06/22/18 08:18 Sulfa (Sulfonamide AdvReac Nausea Verified 06/22/18 08:18 Antibiotics) catgut Allergy Rash Uncoded 06/22/18 08:18 Review of Systems All Systems review (narrative): The remainder of the systems are negative. Constitutional: fatigue, fever(s), no chills Cardiovascular: dyspnea, dyspnea on exertion, no chest pain Respiratory: dyspnea, no cough Gastrointestinal: no change in bowel habits, no diarrhea, no nausea, no vomiting Genitourinary Female: no hematuria, no urinary frequency, no urinary hesitancy, no urinary incontinence Exam - Vital Signs Vital signs: Initial Vital Signs Temp Pulse Resp BP Pulse Ox 98.2 F 81 20 117/70 93 07/13/18 15:48 07/13/18 15:48 07/13/18 15:48 07/13/18 15:48 07/13/18 15:48 Vital Signs - Last 8 Hours Temp Pulse Resp BP Pulse Ox 07/14/18 07:34 97.8 F 76 18 105/65 97 Intake and Output 07/13/18 07/14/18 07/14/18 23:59 07:59 15:59 Intake Total 0 / 0 210.1 / 210.1 Balance 0 / 0 210.1 / 210.1 Intake: IV Fluids 10.1 / 10.1 HumuLIN R 10 UNIT In Normal 10.1 / 10.1 Saline Flush 10 ML @ 1212 mls/ hr IV ONCE ONE Rx#:[id number] Oral 0 / 0 200 / 200 Other: # Voids 1 0 Weight 79.8 kg Blood Glucose* 172 119 - General Appearance General appearance: well-developed, well-nourished EENT: ATNC, hearing intact, vision intact Neck: supple Respiratory: clear Cardiology: no edema, normal S1, normal S2 Gastrointestinal: normoactive bowel sounds, no tenderness, no guarding Integumentary: no rash, warm and dry Neurologic: alert and oriented x3 Musculoskeletal: no deformities, no erythema Psychiatric: mood/affect appropriate, cooperative Results - Lab Results 07/14/18 01:45 07/14/18 08:28 Most recent lab results Calcium 9.0 mg/dL (8.6-10.3) 07/14/18 08:28 Urine Sodium 20.2 mEq/L 07/14/18 01:50 Consult Discharge Plan - Plan Referrals: Jamil Reece MD [Primary Care Provider] - <Zachary Marie - Last Filed: 07/15/18 11:18> Date of Encounter: 07/14/18 Assessment and Plan (1) Hypertension Current Visit: No Status: Chronic Qualifiers: Hypertension type: essential hypertension Qualified Code(s): I10 - Essential (primary) hypertension (2) Hyponatremia Current Visit: Yes Status: Acute (3) Hyperkalemia Current Visit: Yes Status: Acute (4) Acute bronchitis Current Visit: Yes Status: Acute Qualifiers: Bronchitis organism: unspecified organism Qualified Code(s): J20.9 - Acute bronchitis, unspecified Exam - Vital Signs Vital signs: Initial Vital Signs Temp Pulse Resp BP Pulse Ox 98.2 F 81 20 117/70 93 07/13/18 15:48 07/13/18 15:48 07/13/18 15:48 07/13/18 15:48 07/13/18 15:48 Vital Signs - Last 8 Hours Temp Pulse Resp BP Pulse Ox 07/15/18 07:34 97.6 F 71 14 114/63 93 07/15/18 05:30 97.6 F 65 18 111/71 96 Intake and Output 07/14/18 07/15/18 07/15/18 23:59 07:59 15:59 Intake Total 1000 / 1000 240 / 240 Output Total 150 / 150 200 / 200 Balance -150 / -150 800 / 800 240 / 240 Intake: IV Fluids 1000 / 1000 0.9 % Sodium Chloride 1,000 ML 1000 / 1000 @ 60 mls/hr IVC .[id number] [facility] Rx #:[id number] Oral 0 / 0 240 / 240 Output: Urine 100 / 100 100 / 100 Stool 50 / 50 100 / 100 Other: Meal Breakfast Percent of Meal Consumed 100% Stool Consistency soft loose soft Stool Color Brown Brown Yellow # Voids 0 Results - Lab Results 07/15/18 04:07 07/15/18 09:45 Most recent lab results ABG pH 7.36 pH Units (7.32-7.45) 07/14/18 16:59 ABG pCO2 38 mmHg (35-45) 07/14/18 16:59 ABG pO2 90 mmHg (85-104) 07/14/18 16:59 ABG HCO3 22 mEq/L (21-27) 07/14/18 16:59 ABG O2 Saturation 97 % (95-98) 07/14/18 16:59 Calcium 8.9 mg/dL (8.6-10.3) 07/15/18 09:45 Phosphorus 3.2 mg/dL (2.7-4.5) 07/14/18 15:18 Urine Sodium 20.2 mEq/L 07/14/18 01:50 - Attending Attestation I examined this patient and my medical decision-making was reviewed with the Resident Physician/SNOWBOARDING INSTRUCTOR. I agree with the documented findings, disposition and treatment plan as described except to the extent set forth below. Pt seen and examined and in brief; 83 y o female with PMH of HTN, Afin, COPD and recently diagnosed lymphoma being treated with chemo presenting with abnormal labs noted sodium at 114, potassium 6.3 and elevated SCr in the 1.4 range (outpatient labs). Pt was recently treated for acute bronchitis with steroids and abx with decreased po intake lately. On exam WD,WN ledery female noted with somewhat dryMM, clear lungs and heart S1S2 and no LE edema. Urine osm obtained overnight from the ED noted low cosistent with hypovolemic hponatremia and pre-renal LESA causing hyperkalemia already resolving with NS. NS stopped overnight after increase to sodium 123 but now stalling, will resume at NS at 60cc/hr for 1 liter and reassess need. Renal fxn normalized but low potassium diet recommended for now. Avoid nephrotoxins if possible. Will check cortisol, T SH and uric acid levels.
[2018-07-14] MEDS: Budesonide/Formoterol 160/4.5 1 PUFF INH IH SCH ×2 (10:33→19:46)
--- NOTE | 2018-07-14 10:45 | Electrocardiograph Report ---
[address] [address] Test Date: 2018-07-14 Pat Name: Jessica Brunson Department: 111 Room: 2N3 Gender: F Sound Assistant: : 1935 Requested By: Yumiko Irving Order Number: [id number] Reading MD: Jonny Solano Measurements Intervals [place] Rate: 77 P: 23 ME: 190 QRS: -20 QRSD: 114 T: 61 QT: 396 QTc: 428 Interpretive Statements SINUS RHYTHM POSSIBLE LEFT VENTRICULAR HYPERTROPHY Electronically Signed On 07-14-2018 10:43:50 EST by Jonny Solano
[2018-07-14] MEDS ORDERED: 0.9 % Sodium Chloride 1,000 ML IVC SCH (12:00)
[2018-07-14 15:56] LABS: BUN/Creatinine Ratio 19 (6-26); Blood Urea Nitrogen 20 mg/dL (8-23); Calcium 8.9 mg/dL (8.6-10.3); Carbon Dioxide 23 mEq/L (23-29); Chloride 95 mEq/L (98-107); Glucose 140 mg/dL (70-105); Osmolality,Calculated 261 (280-300); Sodium 123 mEq/L (136-145); eGFR For Non-African Americans 51 (> 60)
[2018-07-14] MEDS ORDERED: predniSONE 20 MG TABLET PO SCH (16:15)
[2018-07-14 17:03] LABS: Creatine Kinase 11 Units/L (30-223); Phosphorous 3.2 mg/dL (2.7-4.5)
[2018-07-14 17:05] LABS: ABG Base Excess -3 mEq/L (-2 to 3); ABG HCO3 22 mEq/L (21-27); ABG Oxygen Saturation 97 % (95-98); ABG PCO2 38 mmHg (35-45); ABG PH 7.36 pH Units (7.32-7.45); ABG PO2 90 mmHg (85-104); ABG TCO2 23 mEq/L (20-26)
[2018-07-14] MEDS: clonazePAM 0.5 MG TABLET PO SCH (20:55)
[2018-07-14] MEDS: rOPINIRole 1 MG TABLET PO SCH (20:55)
[2018-07-14 21:36] LABS: BUN/Creatinine Ratio 22 (6-26); Blood Urea Nitrogen 21 mg/dL (8-23); Calcium 8.8 mg/dL (8.6-10.3); Carbon Dioxide 20 mEq/L (23-29); Chloride 99 mEq/L (98-107); Glucose 205 mg/dL (70-105); Osmolality,Calculated 267 (280-300); Potassium 4.6 mEq/L (3.5-5.1); Sodium 124 mEq/L (136-145); eGFR For Non-African Americans 57 (> 60)
[2018-07-14] MEDS: Hydrocortisone Sodium Succ 100 MG/2 ML VIAL IVP SCH (23:37)
[2018-07-15 05:29] LABS: Basophils % 0.4 %; Hemoglobin 11.2 g/dL (11.5-15.4); Immature Granulocytes % 10.8 % (0-4); Lymphocytes # 0.6 K/mcL (0.6-4.6); Lymphocytes % 6.1 %; Mean Corpuscular HGB Conc 32.9 g/dL (31.6-35.5); Mean Corpuscular Hemoglobin 29.8 pg (28.0-33.3); Mean Corpuscular Volume 90.4 fL (83.0-100.0); Mean Platelet Volume 10.1 fL (9.4-12.4); Monocytes # 0.3 K/mcL (0.0-1.3); Monocytes % 3.7 %; Neutrophils # 7.2 K/mcL (1.6-8.9); Platelet Count 258 K/mcL (140-400); Red Blood Count 3.76 M/mcL (3.82-4.97); Red Cell Distribution Width 13.2 % (11.5-14.5)
[2018-07-15 05:39] LABS: BUN/Creatinine Ratio 25 (6-26); Blood Urea Nitrogen 19 mg/dL (8-23); Calcium 9.1 mg/dL (8.6-10.3); Carbon Dioxide 22 mEq/L (23-29); Chloride 100 mEq/L (98-107); Glucose 181 mg/dL (70-105); Osmolality,Calculated 273 (280-300); Potassium 4.9 mEq/L (3.5-5.1); Sodium 128 mEq/L (136-145); eGFR For Non-African Americans > 60 (> 60)
[2018-07-15 06:19] LABS: Platelet Estimate Normal (Normal)
--- NOTE | 2018-07-15 08:27 | Internal Med Progress Note ---
<Ashley Iglesias - Last Filed: 07/15/18 14:48> Hospitalist Progress Note - Encounter Date of Encounter: 07/15/18 - Exam Vitals: Temp Pulse Resp BP Pulse Ox 97.6 F 71 16 114/63 98 07/15/18 07:34 07/15/18 07:34 07/15/18 11:36 07/15/18 07:34 07/15/18 11:36 - Assessment and Plan (1) COPD (chronic obstructive pulmonary disease) Current Visit: No Status: Chronic (2) DVT prophylaxis Current Visit: No Status: Acute (3) CAD (coronary artery disease) Current Visit: No Status: Chronic (4) A-fib Current Visit: No Status: Chronic (5) Hyponatremia Current Visit: Yes Status: Acute (6) Hyperkalemia Current Visit: Yes Status: Resolved (7) Acute bronchitis Current Visit: Yes Status: Acute - Time Spent with Patient Total time spent is greater than 50% in coordination of care (as documented) at patient's floor/unit and/or counseling patient: Internal Medicine: Result - Labs CBC & Chem 7: 07/15/18 04:07 07/15/18 09:45 Labs: Short CBC 07/15/18 Range/Units 04:07 WBC 9.1 (4.3-11.1) K/mcL Hgb 11.2 L (11.5-15.4) g/dL Hct 34.0 L (35.3-44.9) % Plt Count 258 (140-400) K/mcL Neutrophils # 7.2 (1.6-8.9) K/mcL BMP 07/14/18 07/14/18 07/15/18 15:18 20:39 04:07 Sodium 123 L 124 L 128 L Potassium 5.0 4.6 4.9 Chloride 95 L 99 100 Carbon Dioxide 23 20 L 22 L BUN 20 21 19 Creatinine 1.04 0.94 0.76 Glucose 140 H 205 H 181 H Calcium 8.9 8.8 9.1 07/15/18 09:45 Sodium 128 L Potassium 4.4 Chloride 100 Carbon Dioxide 23 BUN 18 Creatinine 0.65 Glucose 203 H Calcium 8.9 - ABG Interpretation ABG results: ABG ABG pH 7.36 pH Units (7.32-7.45) 07/14/18 16:59 ABG pCO2 38 mmHg (35-45) 07/14/18 16:59 ABG pO2 90 mmHg (85-104) 07/14/18 16:59 ABG O2 Saturation 97 % (95-98) 07/14/18 16:59 Consult Discharge Plan - Plan Referrals: Jamil Reece MD [Primary Care Provider] - - Attending Attestation I examined this patient and my medical decision-making was reviewed with the Resident Physician and medical student. I agree with the documented findings, disposition and treatment plan as described except to the extent set forth below. This AM patient felt slightly dizzy which has since resolved. She denies any headache. No acute events reported by nursing. VS: reviewed, BP and HR more normal. Labs: reviewed sodium stable now at 128, potassium improved down to 4.4 now. Renal function remains normal. Physical exam unchanged, patient oriented and cooperative with exam. AAO x3, cardiac auscultation RRR, lungs CTAB, MM moist. Nephrology on board regarding hyponatremia, likely component of poor PO intake for past few days with adrenal insufficiency. Normal saline has been discontinued. Continue Solu Cortef. <Zenon Villalta - Last Filed: 07/15/18 15:03> Hospitalist Progress Note - Encounter Date of Encounter: 07/15/18 Time of Encounter: 09:20 - Subjective Interval History: The patient is a 83 year-old female with PMHx stroke, HTN, COPD, CAD, hypothyroidism, and history of seizures who had presented to the ED with hyponatremia (Na 118) and hyperkalemia (K 5.9). She denied any chest pain or palpitations at the time and had no focal neuro deficits or AMS. EKG showed atrial fibrillation with ventricular rate of 71, but without peaked T waves or other arrhythmias. The patient admits minimal water intake limited to hot tea and ensures and she was being treated by PCP with doxycycline and Augmentin with prednisone for recently diagnosed acute bronchitis. On exam 07/14, patient admits feeling better compared to yesterday but still some baseline fatigue and weakness without any chest pain, fever, chills, nausea, vomiting, muscle aches. She also endorses some lower abdominal pressure related to her chronic urinary incontinence which nursing assists her ambulation to reach the toilet in time; output from ostomy has been normal with some intermittent leaking. Patient started cycle 3 of chemo treatment on 06/22/18 and she has had some mild thrush however her appetite has improved compared to prior weeks. Patient seen at bedside this morning, she admits feeling lightheaded and unsteady on her feet as she was rising from bed this morning however this improved as she was able to ambulate more with the assistance of OT; no other lightheadedness while sitting and denies any fever, chills, headache, chest pain, nausea, vomiting, syncope, vertigo, palpitations. The patient endorses improvement with her fatigue and increased appetite. There have been no changes with her ostomy or urinary issues in the context of her chronic incontinence. - Exam Vitals: Temp Pulse Resp BP Pulse Ox 97.6 F 71 14 114/63 93 07/15/18 07:34 07/15/18 07:34 07/15/18 07:34 07/15/18 07:34 07/15/18 07:34 Exam: Gen: Vitals noted. No acute distress. Patient appears frail. Eyes: EOMI, anicteric sclerae, moist conjunctivae; no lid-lag; Pupils equal and reactive to light; No nystagmus HENT: Atraumatic; oropharynx clear with dry mucous membranes and mild thrush, no other mucosal ulcerations; normal hard and soft palate Neck: Trachea midline; supple, no thyromegaly or lymphadenopathy Cardiac: RRR, no murmur, +S1/S2 Pulmonary: CTA bilaterally, no wheezes, rales or rhonchi, equal chest expansion Abdomen: soft, nontender, no guarding; Ostomy bag present; No masses or hepatosplenomegaly MSK: ROM intact, no joint swelling noted Extremities: no BLE edema, nontender calf, no cyanosis or clubbing Skin: Normal temperature, dry skin with good turgor; no rash, ulcers or subcutaneous nodules Neuro: Tardive dyskinesia movement of mouth present, moves all extremities Psych: Appropriate mood and behavior. - Assessment and Plan (1) Hyponatremia Current Visit: Yes Status: Acute Assessment and Plan: Na of 128 compared to Na of 124 after 1L IV 0.9% NSS given in the past 24 hours; initial Na of 118 when presented to ED 40 hours ago. Lab updates include CK of 11, phosphorous of 3.2, and GFR >60. Has improved with 100mg IV hydrocortisone q8h as Na increasing with K remaining in normal range. This is more consistent with an adrenal insufficiency etiology versus a hypovolemic hyponatremia picture, though the latter is still likely contributing given her limited oral intake previously. Nephrology on consult for fluid maintenance. Consider changing IVF to D5% in water given improving electrolyte levels and steroid regimen for further equilibrium. -Neprho on consult for fluid management -BMP q12h -Complete hydrocortisone 100mg IV, continue prednisone 40mg PO QD -Oral diet as tolerated, encourage PO fluid intake (2) Hyperkalemia Current Visit: Yes Status: Resolved Assessment and Plan: K of 4.4, stabilizing in normal range. -Plan as above in Hyponatremia (3) Acute bronchitis Current Visit: Yes Status: Acute Assessment and Plan: Has chronic shortness of breath but no acute complaints of fever, wheezing, or cough with sputum production. On exam lungs CTA rosa without wheezes, rales, rhonchi. -Continue original steroid taper with 2 days remaining of prednisone 40mg PO QD. (4) A-fib Current Visit: No Status: Chronic Assessment and Plan: History of atrial fibrillation with rate control and anticoagulation. On exam, RRR present without murmurs, rubs, gallops. -Continue Xarelto and Lopressor. (5) CAD (coronary artery disease) Current Visit: No Status: Chronic Assessment and Plan: History of coronary artery disease. -Continue home medication. (6) COPD (chronic obstructive pulmonary disease) Current Visit: No Status: Chronic Assessment and Plan: No acute exacerbation. -Continue oxygen NC 2L and home symbicort. (7) DVT prophylaxis Current Visit: No Status: Acute Assessment and Plan: Decreased mobility and relatively low activity. OT working with patient to improve ambulation. -On anticoagulation related to Afib. - Time Spent with Patient Total time spent is greater than 50% in coordination of care (as documented) at patient's floor/unit and/or counseling patient: Internal Medicine: Result - Labs CBC & Chem 7: 07/15/18 04:07 07/15/18 14:25 Labs: Short CBC 07/15/18 Range/Units 04:07 WBC 9.1 (4.3-11.1) K/mcL Hgb 11.2 L (11.5-15.4) g/dL Hct 34.0 L (35.3-44.9) % Plt Count 258 (140-400) K/mcL Neutrophils # 7.2 (1.6-8.9) K/mcL BMP 07/14/18 07/14/18 07/14/18 08:28 15:18 20:39 Sodium 124 L 123 L 124 L Potassium 4.6 5.0 4.6 Chloride 94 L 95 L 99 Carbon Dioxide 24 23 20 L BUN 18 20 21 Creatinine 0.69 1.04 0.94 Glucose 116 H 140 H 205 H Calcium 9.0 8.9 8.8 07/15/18 04:07 Sodium 128 L Potassium 4.9 Chloride 100 Carbon Dioxide 22 L BUN 19 Creatinine 0.76 Glucose 181 H Calcium 9.1 - ABG Interpretation ABG results: ABG ABG pH 7.36 pH Units (7.32-7.45) 07/14/18 16:59 ABG pCO2 38 mmHg (35-45) 07/14/18 16:59 ABG pO2 90 mmHg (85-104) 07/14/18 16:59 ABG O2 Saturation 97 % (95-98) 07/14/18 16:59 <Ashley Iglesias - Last Filed: 07/15/18 14:48> (1) COPD (chronic obstructive pulmonary disease) Qualifiers: COPD type: unspecified COPD Qualified Code(s): J44.9 - Chronic obstructive pulmonary disease, unspecified (3) CAD (coronary artery disease) Qualifiers: Coronary Disease-Associated Artery/Lesion type: unspecified vessel or lesion type [place] vs. transplanted heart: [place] heart Associated angina: without angina Qualified Code(s): I25.10 - Atherosclerotic heart disease of [place] coronary artery without angina pectoris (4) A-fib Qualifiers: Atrial fibrillation type: unspecified Qualified Code(s): I48.91 - Unspecified atrial fibrillation (7) Acute bronchitis Qualifiers: Bronchitis organism: unspecified organism Qualified Code(s): J20.9 - Acute bronchitis, unspecified <PawanZenon Darlene - Last Filed: 07/15/18 15:03> (3) Acute bronchitis Qualifiers: Bronchitis organism: unspecified organism Qualified Code(s): J20.9 - Acute bronchitis, unspecified (4) A-fib Qualifiers: Atrial fibrillation type: unspecified Qualified Code(s): I48.91 - Unspecified atrial fibrillation (5) CAD (coronary artery disease) Qualifiers: Coronary Disease-Associated Artery/Lesion type: unspecified vessel or lesion type [place] vs. transplanted heart: [place] heart Associated angina: without a ngina Qualified Code(s): I25.10 - Atherosclerotic heart disease of [place] coronary artery without angina pectoris (6) COPD (chronic obstructive pulmonary disease) Qualifiers: COPD type: unspecified COPD Qualified Code(s): J44.9 - Chronic obstructive pulmonary disease, unspecified
[2018-07-15] MEDS ORDERED: predniSONE 20 MG TABLET PO SCH (09:00)
[2018-07-15] MEDS: Nystatin SUSP 5 ML UD.LIQ PO SCH ×4 (09:51→21:34)
[2018-07-15] MEDS: Hydrocortisone Sodium Succ 100 MG/2 ML VIAL IVP SCH ×2 (09:51→17:24)
[2018-07-15] MEDS: *HR* Rivaroxaban 10 MG TABLET PO SCH (09:51)
[2018-07-15] MEDS: Primidone 50 MG TABLET PO SCH ×2 (09:52→21:35)
[2018-07-15] MEDS: Fluticasone Propionate Nasal 50 MCG/SPRAY BOTTLE NS SCH (09:53)
[2018-07-15] MEDS: (Bifidobacterium Infantis [Align] 4 MG) PO SCH (09:53)
[2018-07-15 10:42] LABS: BUN/Creatinine Ratio 28 (6-26); Blood Urea Nitrogen 18 mg/dL (8-23); Calcium 8.9 mg/dL (8.6-10.3); Carbon Dioxide 23 mEq/L (23-29); Chloride 100 mEq/L (98-107); Glucose 203 mg/dL (70-105); Osmolality,Calculated 274 (280-300); Potassium 4.4 mEq/L (3.5-5.1); Sodium 128 mEq/L (136-145); eGFR For Non-African Americans > 60 (> 60)
[2018-07-15] MEDS: Budesonide/Formoterol 160/4.5 1 PUFF INH IH SCH ×2 (11:36→22:51)
--- NOTE | 2018-07-15 12:09 | Nephrology Progress Note ---
Addendum entered and electronically signed by Jamil Stanton DO 07/15/18 17:44: I have personally performed a face to face evaluation on this patient. I have reviewed and agree with the care plan. History and Exam by me shows: I reviewed the handoff communication from my colleague. Hyponatremia is slowly, safely correcting. Continue current care. See below for details. Thank you. Original Note: Date of Encounter: 07/15/18 Time of Encounter: 12:06 - Assessment and Plan (1) Hyponatremia Current Visit: Yes Status: Acute Initial NA per our records was 118 is now 128. Uric acid, TSH, and Cortisol ordered. Urine Osmo and sodium noted, this is probably not SIADH. Liberalize salt in diet. Will continue to aim for the goal of correcting the NA slowly only raising 6-8 meq's in the first 24 hours. (2) Acute bronchitis Current Visit: Yes Status: Acute Per primary. Qualifiers: Bronchitis organism: unspecified organism Qualified Code(s): J20.9 - Acute bronchitis, unspecified (3) Hyperkalemia Current Visit: Yes Status: Acute Resolving is 4.4. (4) Hypertension Current Visit: No Status: Chronic Stable, 114/63. Qualifiers: Hypertension type: essential hypertension Qualified Code(s): I10 - Essential (primary) hypertension Subjective Principal diagnosis: hyponatremia, hyperkalemia Interval history: Pt seen and examined, is doing well. No acute events overnight. Denies nausea, vomiting, diarrhea. Denies chest pain admits to chronic shortness of breath. Objective - Vital Signs Vital signs: Vital Signs Temp Pulse Resp BP Pulse Ox 07/15/18 07:34 97.6 F 71 14 114/63 93 07/15/18 05:30 97.6 F 65 18 111/71 96 07/14/18 20:55 84 137/72 07/14/18 19:46 16 97 07/14/18 16:44 98 F 74 97/64 96 07/14/18 16:43 98.0 F 77 14 97/64 96 Intake and Output 07/14/18 07/15/18 07/15/18 23:59 07:59 15:59 Intake Total 1000 / 1000 240 / 240 Output Total 150 / 150 200 / 200 Balance -150 / -150 800 / 800 240 / 240 Intake: IV Fluids 1000 / 1000 0.9 % Sodium Chloride 1,000 ML 1000 / 1000 @ 60 mls/hr IVC .[id number] [facility] Rx #:[id number] Oral 0 / 0 240 / 240 Output: Urine 100 / 100 100 / 100 Stool 50 / 50 100 / 100 Other: Meal Breakfast Percent of Meal Consumed 100% Stool Consistency soft loose soft Stool Color Brown Brown Yellow # Voids 0 - General Appearance General appearance: Present: well-developed, well-nourished EENT: Present: ATNC, hearing intact, vision intact Neck: Present: supple Respiratory: Present: clear Cardiology: Present: no edema, normal S1, normal S2 Gastrointestinal: Present: normoactive bowel sounds, no tenderness, no guarding Integumentary: Present: no rash, warm and dry Neurologic: Present: alert and oriented x3 Musculoskeletal: Present: no deformities, no erythema Psychiatric: Present: mood/affect appropriate, cooperative - Lab 07/15/18 04:07 07/15/18 09:45 Most recent lab results ABG pH 7.36 pH Units (7.32-7.45) 07/14/18 16:59 ABG pCO2 38 mmHg (35-45) 07/14/18 16:59 ABG pO2 90 mmHg (85-104) 07/14/18 16:59 ABG HCO3 22 mEq/L (21-27) 07/14/18 16:59 ABG O2 Saturation 97 % (95-98) 07/14/18 16:59 Calcium 8.9 mg/dL (8.6-10.3) 07/15/18 09:45 Phosphorus 3.2 mg/dL (2.7-4.5) 07/14/18 15:18 Urine Sodium 20.2 mEq/L 07/14/18 01:50 Consult Discharge Plan - Plan Referrals: Jamil Reece MD [Primary Care Provider] -
[2018-07-15] MEDS: rOPINIRole 1 MG TABLET PO SCH (21:35)
[2018-07-15] MEDS: clonazePAM 0.5 MG TABLET PO SCH (21:35)
[2018-07-16] MEDS: Hydrocortisone Sodium Succ 100 MG/2 ML VIAL IVP SCH ×3 (00:58→16:23)
[2018-07-16 03:06] LABS: Basophils % 0.3 %; Eosinophils % 0.2 %; Hematocrit 29.8 % (35.3-44.9); Hemoglobin 9.7 g/dL (11.5-15.4); Immature Granulocytes % 9.8 % (0-4); Lymphocytes # 0.5 K/mcL (0.6-4.6); Lymphocytes % 4.4 %; Mean Corpuscular HGB Conc 32.6 g/dL (31.6-35.5); Mean Corpuscular Hemoglobin 29.8 pg (28.0-33.3); Mean Corpuscular Volume 91.4 fL (83.0-100.0); Mean Platelet Volume 9.7 fL (9.4-12.4); Monocytes % 8.6 %; Platelet Count 223 K/mcL (140-400); Red Blood Count 3.26 M/mcL (3.82-4.97); Red Cell Distribution Width 13.5 % (11.5-14.5); Segmented Neutrophils % 76.7 %
[2018-07-16 03:08] LABS: Neutrophils # 8.4 K/mcL (1.6-8.9)
[2018-07-16 03:21] LABS: BUN/Creatinine Ratio 23 (6-26); Blood Urea Nitrogen 18 mg/dL (8-23); Calcium 8.9 mg/dL (8.6-10.3); Carbon Dioxide 24 mEq/L (23-29); Chloride 103 mEq/L (98-107); Glucose 148 mg/dL (70-105); Osmolality,Calculated 275 (280-300); Potassium 4.7 mEq/L (3.5-5.1); Sodium 130 mEq/L (136-145); eGFR For Non-African Americans > 60 (> 60)
[2018-07-16 03:32] LABS: Platelet Estimate Normal (Normal)
--- NOTE | 2018-07-16 08:20 | Internal Med Progress Note ---
Hospitalist Progress Note - Encounter Date of Encounter: 07/16/18 Time of Encounter: 16:09 - Subjective Interval History: No acute events. Denies dizziness, chest pain, SOB, n/v. - Exam Vitals: Temp Pulse Resp BP Pulse Ox 97.7 F 64 16 137/84 96 07/16/18 07:26 07/16/18 07:26 07/16/18 07:26 07/16/18 07:26 07/16/18 07:26 Exam: Gen: Vitals noted. No acute distress. Patient appears frail. Eyes: EOMI, anicteric sclerae, moist conjunctivae; no lid-lag; Pupils equal and reactive to light; No nystagmus HENT: Atraumatic; oropharynx clear with dry mucous membranes and mild thrush, no other mucosal ulcerations; normal hard and soft palate Neck: Trachea midline; supple, no thyromegaly or lymphadenopathy Cardiac: RRR, no murmur, +S1/S2 Pulmonary: CTA bilaterally, no wheezes, rales or rhonchi, equal chest expansion Abdomen: soft, nontender, no guarding; Ostomy bag present; No masses or hepatosplenomegaly MSK: ROM intact, no joint swelling noted Extremities: no BLE edema, nontender calf, no cyanosis or clubbing Skin: Normal temperature, dry skin with good turgor; no rash, ulcers or subcutaneous nodules Neuro: Tardive dyskinesia movement of mouth present, moves all extremities Psych: Appropriate mood and behavior. - Assessment and Plan (1) Hyponatremia Current Visit: Yes Status: Acute Assessment and Plan: Moderate to severe hyponatremia of 114 assessed on outpatient lab work. Suspect hypovolemic hyponatremia secondary to decreased by mouth intake as patient reports she does not drink much water aside from her daily hot tea and 3 ensures daily. No neurological changes on examination. 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 Repeat sodium here in the ED showed a value of 118. Case discussed with nephrology who recommended 250 mL bolus for now and then gentle hydration with sodium checks every 4-6 hours. -We will reassess sodium level after the 250 mL bolus. If sodium found to be between 120 and 122, will hold fluids. Otherwise we will continue fluids at 100 mL an hour with sodium checks every 4-6 hours with goal correction between 6-8 mEq over the next 24 hours. -Check serum osmolality, urine osmolality, urine sodium, TSH -Nephrology consult 2/3: Now 133, near resolved, continue current management. (2) COPD (chronic obstructive pulmonary disease) Current Visit: No Status: Chronic Assessment and Plan: History of COPD on 2 L nasal cannula at night. No evidence of an acute exacerbation. -Resume home inhalers (3) CAD (coronary artery disease) Current Visit: No Status: Chronic Assessment and Plan: Continue Zocor (4) A-fib Current Visit: No Status: Chronic Assessment and Plan: History of atrial fibrillation rate controlled on anticoagulation. -Continue Lopressor and Xarelto (5) Hyperkalemia Current Visit: Yes Status: Resolved Assessment and Plan: Resolved. (6) DVT prophylaxis Current Visit: No Status: Acute Assessment and Plan: On Xarelto - Time Spent with Patient Total time spent is greater than 50% in coordination of care (as documented) at patient's floor/unit and/or counseling patient: Internal Medicine: Result - Labs CBC & Chem 7: 07/17/18 04:50 07/17/18 04:50 Labs: Short CBC 07/16/18 Range/Units 02:47 WBC 11.0 (4.3-11.1) K/mcL Hgb 9.7 L D (11.5-15.4) g/dL Hct 29.8 L (35.3-44.9) % Plt Count 223 (140-400) K/mcL Neutrophils # 8.4 (1.6-8.9) K/mcL BMP 07/15/18 07/15/18 07/15/18 09:45 14:25 18:30 Sodium 128 L 130 L 129 L Potassium 4.4 Chloride 100 Carbon Dioxide 23 BUN 18 Creatinine 0.65 Glucose 203 H Calcium 8.9 07/15/18 07/16/18 07/16/18 22:00 02:47 05:50 Sodium 127 L 130 L 129 L Potassium 4.7 Chloride 103 Carbon Dioxide 24 BUN 18 Creatinine 0.80 Glucose 148 H Calcium 8.9 - ABG Interpretation ABG results: ABG ABG pH 7.36 pH Units (7.32-7.45) 07/14/18 16:59 ABG pCO2 38 mmHg (35-45) 07/14/18 16:59 ABG pO2 90 mmHg (85-104) 07/14/18 16:59 ABG O2 Saturation 97 % (95-98) 07/14/18 16:59 Consult Discharge Plan - Plan Referrals: Jamil Reece MD [Primary Care Provider] - (2) COPD (chronic obstructive pulmonary disease) Qualifiers: COPD type: unspecified COPD Qualified Code(s): J44.9 - Chronic obstructive pulmonary disease, unspecified (3) CAD (coronary artery disease) Qualifiers: Coronary Disease-Associated Artery/Lesion type: unspecified vessel or lesion type [place] vs. transplanted heart: [place] heart Associated angina: without angina Qualified Code(s): I25.10 - Atherosclerotic heart disease of [place] coronary artery without angina pectoris (4) A-fib Qualifiers: Atrial fibrillation type: unspecified Qualified Code(s): I48.91 - Unspecified atrial fibrillation
[2018-07-16] MEDS: Nystatin SUSP 5 ML UD.LIQ PO SCH ×4 (08:22→21:50)
[2018-07-16] MEDS: *HR* Rivaroxaban 10 MG TABLET PO SCH (08:23)
[2018-07-16] MEDS: Primidone 50 MG TABLET PO SCH ×2 (08:23→21:50)
[2018-07-16] MEDS: Magnesium Oxide 400 MG TABLET PO SCH (08:24)
[2018-07-16] MEDS: Fluticasone Propionate Nasal 50 MCG/SPRAY BOTTLE NS SCH (08:25)
[2018-07-16] MEDS: (Bifidobacterium Infantis [Align] 4 MG) PO SCH (08:26)
[2018-07-16] MEDS: Budesonide/Formoterol 160/4.5 1 PUFF INH IH SCH (09:04)
--- NOTE | 2018-07-16 10:11 | Event Note ---
Date of Encounter: 07/16/18 Time of Encounter: 09:50 - Nephrology Event Note I went to her room twice today but on both visits, she was in her bathroom with nursing students in the room waiting on the pt. Her hyponatremia is trending better. Agree with the A.I stress dose steroids; discussed with the Hospitalist. Continue current care.
[2018-07-16] MEDS: rOPINIRole 1 MG TABLET PO SCH (21:49)
[2018-07-16] MEDS: clonazePAM 0.5 MG TABLET PO SCH (21:49)
[2018-07-17] MEDS: Budesonide/Formoterol 160/4.5 1 PUFF INH IH SCH ×3 (00:19→21:38)
[2018-07-17] MEDS: Hydrocortisone Sodium Succ 100 MG/2 ML VIAL IVP SCH ×4 (00:23→15:55)
[2018-07-17] MEDS ORDERED: *HR* Metoprolol 5 MG/5 ML VIAL IVP ONE ×3 (02:31→04:13)
--- NOTE | 2018-07-17 04:23 | Event Note ---
Addendum entered and electronically signed by Roque Rausch CNP 07/17/18 06:41: Alerted by pts. nurse at 05:28 that HR remains in 130s. BP now 123/75. Discussed w/Dr. Irving regarding starting Cardizem gtt. Timed H/H ordered to monitor pts. Hgb which increased to 10.3 this a.m. Nurse instructed to start gtt per my protocol. Original Note: Date of Encounter: 07/16/18 Time of Encounter: 23:45 Alerted by patient's nurse RADHA Dean that patient has developed from sinus rhythm into A. fib with a heart rate ranging from 115 to 140. Patient has history of A. fib. Blood pressure at the time 124/72, temp 98.0, SPO2 96%, RR 16. Patient asymptomatic. Sodium 130, up from 127 yesterday. Potassium 4.7, up from 4.4 yesterday. Home dose of amlodipine on hold currently. Instructed nurse to continue monitoring patient closely alerted me of any changes. Alerted at 22:26 that patient still in A. fib with heart rate in 115 to 140s. Consider Cardizem drip, however patient is currently on Xarelto and the two are contraindicated d/t increased synergistic effects on Xarelto. Pt. had drop in hemoglobin from 11.2 yesterday to 9.7 today. One-time dose of Metoprolol 2.5 mg IVP ordered and administered. BP 98/67 at the time. HR still 115 to 140 one hour after administration. Discussed pt. w/Dr. Irving who recommended a 5 mg dose of Metoprolol once IVP. Order placed. Nurse instructed to monitor pt. closely and alert me to how HR responds to increased Metoprolol dosing.
[2018-07-17 05:13] LABS: Hematocrit 32.2 % (35.3-44.9); Hemoglobin 10.3 g/dL (11.5-15.4); Mean Corpuscular Hemoglobin 29.4 pg (28.0-33.3); Mean Platelet Volume 9.4 fL (9.4-12.4); Platelet Count 217 K/mcL (140-400); Red Cell Distribution Width 13.8 % (11.5-14.5)
[2018-07-17 05:31] LABS: Basophils # 0.2 K/mcL (0.0-0.2); Lymphocytes # 0.6 K/mcL (0.6-4.6)
[2018-07-17 05:32] LABS: Alanine Aminotransferase 12 Units/L (7-52); Albumin 2.9 g/dL (3.5-5.7); Albumin/Globulin Ratio 1.2 (1.1-2.2); Alkaline Phosphatase 97 Units/L (34-104); Aspartate Amino Transferase 16 Units/L (13-39); BUN/Creatinine Ratio 26 (6-26); Bilirubin,Total 0.2 mg/dL (0.3-1.0); Blood Urea Nitrogen 17 mg/dL (8-23); Calcium 9.1 mg/dL (8.6-10.3); Carbon Dioxide 24 mEq/L (23-29); Chloride 104 mEq/L (98-107); Globulin 2.4 g/dL (2.4-3.5); Glucose 116 mg/dL (70-105); Osmolality,Calculated 279 (280-300); Platelet Estimate Normal (Normal); Potassium 4.1 mEq/L (3.5-5.1); Sodium 133 mEq/L (136-145); Total Protein 5.3 g/dL (6.4-8.9); eGFR For Non-African Americans > 60 (> 60)
--- NOTE | 2018-07-17 08:11 | Internal Med Progress Note ---
Hospitalist Progress Note - Encounter Date of Encounter: 07/17/18 Time of Encounter: 08:29 - Subjective Interval History: Patient had onset of atrial fibrillation with RVR overnight. She denied any symptoms during this time. She states she has high heart rate right now because of family difficulties. She denies shortness of breath, CP, n/v, fevers/chills. Dizziness not present. - Exam Vitals: Temp Pulse Resp BP Pulse Ox 98 F 132 18 84/65 96 07/17/18 07:15 07/17/18 07:15 07/17/18 07:15 07/17/18 07:15 07/17/18 07:15 Exam: Gen: Vitals noted. No acute distress. Patient appears frail. Eyes: EOMI, anicteric sclerae, moist conjunctivae; no lid-lag; Pupils equal and reactive to light; No nystagmus HENT: Atraumatic; oropharynx clear with dry mucous membranes and mild thrush, no other mucosal ulcerations; normal hard and soft palate Neck: Trachea midline; supple, no thyromegaly or lymphadenopathy Cardiac: tachycardic with irregularly irregular rhythm Pulmonary: CTA bilaterally, no wheezes, rales or rhonchi, equal chest expansion Abdomen: soft, nontender, no guarding; Ostomy bag present; No masses or hepatosplenomegaly MSK: ROM intact, no joint swelling noted Extremities: no BLE edema, nontender calf, no cyanosis or clubbing Skin: Normal temperature, dry skin with good turgor; no rash, ulcers or subcutaneous nodules Neuro: Tardive dyskinesia movement of mouth present, moves all extremities - Assessment and Plan (1) Hyponatremia Current Visit: Yes Status: Acute Assessment and Plan: Moderate to severe hyponatremia of 114 assessed on outpatient lab work. Suspect hypovolemic hyponatremia secondary to decreased by mouth intake as patient reports she does not drink much water aside from her daily hot tea and 3 ensures daily. No neurological changes on examination. 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 Repeat sodium here in the ED showed a value of 118. Case discussed with nephrology who recommended 250 mL bolus for now and then gentle hydration with sodium checks every 4-6 hours. 2/3: Now 133, near resolved, continue current management. Taper Solu Cortef, No IV fluids have been required. Nephrology following. (2) COPD (chronic obstructive pulmonary disease) Current Visit: No Status: Chronic Assessment and Plan: History of COPD on 2 L nasal cannula at night. No evidence of an acute exacerbation. -Resume home inhalers (3) CAD (coronary artery disease) Current Visit: No Status: Chronic Assessment and Plan: Continue Zocor (4) A-fib Current Visit: No Status: Chronic Assessment and Plan: Known history, on Toprol at home and Xarelto. Currently in RVR, see above. (5) Hyperkalemia Current Visit: Yes Status: Resolved Assessment and Plan: Resolved. (6) DVT prophylaxis Current Visit: No Status: Acute Assessment and Plan: On Xarelto - Time Spent with Patient Total time spent is greater than 50% in coordination of care (as documented) at patient's floor/unit and/or counseling patient: Internal Medicine: Result - Labs CBC & Chem 7: 07/17/18 04:50 07/17/18 04:50 Labs: Short CBC 07/17/18 Range/Units 04:50 WBC 9.8 (4.3-11.1) K/mcL Hgb 10.3 L (11.5-15.4) g/dL Hct 32.2 L (35.3-44.9) % Plt Count 217 (140-400) K/mcL Neutrophils # 8.0 (1.6-8.9) K/mcL BMP 07/16/18 07/16/18 07/17/18 06:00 12:00 04:50 Sodium 130 L 130 L 133 L Potassium 4.1 Chloride 104 Carbon Dioxide 24 BUN 17 Creatinine 0.66 Glucose 116 H Calcium 9.1 Liver Function 07/17/18 Range/Units 04:50 Total Bilirubin 0.2 L (0.3-1.0) mg/dL AST 16 (13-39) Units/L ALT 12 (7-52) Units/L Alkaline Phosphatase 97 (34-104) Units/L Albumin 2.9 L (3.5-5.7) g/dL - ABG Interpretation ABG results: ABG ABG pH 7.36 pH Units (7.32-7.45) 07/14/18 16:59 ABG pCO2 38 mmHg (35-45) 07/14/18 16:59 ABG pO2 90 mmHg (85-104) 07/14/18 16:59 ABG O2 Saturation 97 % (95-98) 07/14/18 16:59 Consult Discharge Plan - Plan Referrals: Jamil Reece MD [Primary Care Provider] - (2) COPD (chronic obstructive pulmonary disease) Qualifiers: COPD type: unspecified COPD Qualified Code(s): J44.9 - Chronic obstructive pulmonary disease, unspecified (3) CAD (coronary artery disease) Qualifiers: Coronary Disease-Associated Artery/Lesion type: unspecified vessel or lesion type [place] vs. transplanted heart: [place] heart Associated angina: without angina Qualified Code(s): I25.10 - Atherosclerotic heart disease of [place] coronary artery without angina pectoris (4) A-fib Qualifiers: Atrial fibrillation type: unspecified Qualified Code(s): I48.91 - Unspecified atrial fibrillation
[2018-07-17] MEDS ORDERED: 0.9 % Sodium Chloride 250 ML ONE ×2 (08:34→20:19)
[2018-07-17] MEDS: Magnesium Oxide 400 MG TABLET PO SCH (08:36)
[2018-07-17] MEDS: Primidone 50 MG TABLET PO SCH ×2 (08:36→20:22)
[2018-07-17] MEDS: *HR* Rivaroxaban 10 MG TABLET PO SCH (08:37)
[2018-07-17] MEDS: Nystatin SUSP 5 ML UD.LIQ PO SCH ×4 (08:37→20:23)
[2018-07-17] MEDS: Fluticasone Propionate Nasal 50 MCG/SPRAY BOTTLE NS SCH (08:37)
[2018-07-17] MEDS: (Bifidobacterium Infantis [Align] 4 MG) PO SCH (08:50)
--- NOTE | 2018-07-17 10:33 | Event Note ---
Date of Encounter: 07/17/18 Time of Encounter: 10:32 - Nephrology Event Note Hyponatremia continues to nicely correct. I will sign-off at this point. It would be reasonable for her to have at least one Nephrology outpt follow up. I reviewed her chart to see which of my colleagues first established care, which was Dr. Jimneez. Recommend checking a BMP about a week after discharge and follow up with Dr. Jimenez in about 4 weeks. Please feel free to call or page me with any Renal questions. Thank you.
--- NOTE | 2018-07-17 10:35 | Cardiology Consult Note ---
Addendum entered and electronically signed by Yuri Alvarado MD 07/17/18 12:04: I examined this patient and my medical decision-making was reviewed with the PERSONNEL ADVISER. I agree with the documented findings, disposition and treatment plan as described except to the extent set forth below. A/P: Hyponatremia Hyperkalemia PAF on xarelto and BB, currently with low dose cardizem titration Continue current management Thank you for the consult and allowing me to care for your patient, Yuri Alvarado MD [facility] Original Note: Date of Encounter: 07/17/18 Time of Encounter: 09:30 Assessment and Plan (1) Hyponatremia Current Visit: Yes Status: Acute Per cardiology: -Admitted with hyponatremia. -Nephro following. -Management per primary and nephrology services. (2) Hyperkalemia Current Visit: Yes Status: Resolved Per cardiology: -Hyperkalemic on admission, now resolved. -Management per primary service. (3) PAF (paroxysmal atrial fibrillation) Current Visit: Yes Status: Chronic Per cardiology: -Known PAF, on BB and xarelto at home. -Overnight went into a.fib RVR, was given IV metoprolol and started on cardizem drip. -Average HR 126, currently on cardizem drip at 2.5mg/hour. -BP marginal. -Last TTE 11/2017 with LVEF 55-60%. -Continue cardizem drip, uptitrate as BP will allow. -Continue low dose BB and xarelto. -Will continue to monitor. Discussion w patient/family: The assessment and plan as outlined above was discussed with the patient who expressed understanding and agreement. All questions were answered. Thank you for involving us in the care of your patient. Please call with any questions. Discussed and reviewed with . History of Present Illness Consult date: 07/17/18 Requesting physician: Ashley Iglesias Consult reason: a.fib RVR Chief complaint: abnormal labs History of present illness: Ms. Brunson is a 83 year old female with a relevant past medical history of paroxysmal a.fib, TIA, gastric ulcers, HLD, HTN, GERD, thyroid disorder, seizu res, COPD, lymphoma, colectomy with colostomy, who presented to [facility] by recommendation from her PCP regarding abnormal lab work. Patient states she felt a like weak, fatigued otherwise was at her baseline. Denies chest pain, increased shortness of breath. Denies palpitations or fluttering. Past Med Surg Social Fam HX - Past Medical History Attestation: Yes The following information was validated with the patient. Source: patient, old records reviewed Medical history: atrial fibrillation, cancer, COPD, GERD, hyperlipidemia, hypertension, seizures, thyroid disease, TIA, other Additional medical history: TREMORS Psychiatric history: anxiety, depression - Past Surgical History Surgical History: cholecystectomy, hysterectomy, orthopedic, other Additional surgical history: large intestine removed. back surgery. hip replacement - Social History Smoking Status: Former smoker Smokeless Tobacco Status: No Alcohol use: none Drug use: none - Family History Mother Living Status: Hx Family Cardiac Disorders: Yes Hx Family Endocrine Disorder: Yes Father Hx Family Respiratory Disorders: Yes Hx Family Cancer: Yes Brother Hx Family Cancer: Yes Medications and Allergies Budesonide/Formoterol 160/4.5 [Symbicort 160/4.5] 2 puff IH BID PRN 11/13/15 [History] Ergocalciferol (VITAMIN D2) [Vitamin D2] 2,000 unit PO DAILY 11/13/15 [History] Primidone [Mysoline] 100 mg PO HS 11/13/15 [History] Ropinirole HCl [Requip] 5 mg PO HS 11/13/15 [History] Simvastatin [Zocor] 40 mg PO HS 11/13/15 [History] Amitriptyline HCl 50 mg PO DAILY 05/01/17 [History] clonazePAM [Klonopin] 0.5 mg PO HS #5 tablet 05/05/17 [Rx] Magnesium Oxide [Magnesium] 400 mg PO DAILY 11/05/17 [History] Pantoprazole Sodium [Protonix] 40 mg PO DAILY 11/06/17 [History] Rivaroxaban [Xarelto] 20 mg PO DAILY 03/09/18 [History] amLODIPine [Norvasc] 10 mg PO DAILY 03/09/18 [History] Bethanechol [Urecholine] 50 mg PO BID 03/23/18 [History] Bifidobacterium Infantis [Align] 4 mg PO DAILY 03/23/18 [History] Cranberry 500 mg PO BID 03/23/18 [History] Cyanocobalamin (Vitamin B-12) [Vitamin B-12] 1,000 mcg PO DAILY 03/23/18 [History] Fluticasone Propionate Nasal [Flonase] 2 spray NS QAM 03/23/18 [History] Metoprolol [Lopressor] 75 mg PO DAILY 03/23/18 [History] Omeprazole [PriLOSEC] 40 mg PO BID 03/23/18 [History] Albuterol Sulfate [Proair Hfa] 1 puff IH Q6H PRN 06/01/18 [History] Ferrous Sulfate [Iron] 325 mg PO DAILY 06/01/18 [History] Ipratropium/Albuterol Neb [Duoneb] 3 ml IH Q6HR PRN 06/01/18 [History] Cyclobenzaprine [Flexeril] 10 mg PO BID PRN 06/15/18 [History] Amoxicillin/Clavulanate [AUGMENTIN Susp] 10 ml PO BID 07/15/18 [History] Fluconazole [Diflucan] 100 mg PO DAILY 07/15/18 [History] Nitrofurantoin [Macrodantin] 50 mg PO DAILY 07/15/18 [History] Ondansetron HCl 4 mg PO Q4H PRN 07/15/18 [History] Oxybutynin [Ditropan] 5 mg PO BID 07/15/18 [History] Prochlorperazine Maleate [Compazine] 10 mg PO Q4H PRN 07/15/18 [History] predniSONE [PredniSONE] See Taper PO AD 07/15/18 [History] Allergy/AdvReac Type Severity Reaction Status Date / Time morphine Allergy Fainting Verified 07/15/18 14:55 propoxyphene [From Darvon] Allergy Fainting Verified 07/15/18 14:55 aspirin [ASA] AdvReac See Verified 07/15/18 14:55 Comments codeine AdvReac Fainting Verified 07/15/18 14:55 gabapentin AdvReac Nausea Verified 07/15/18 14:55 Iodinated Contrast- Oral and AdvReac "knocked Verified 07/15/18 14:55 IV Dye out" [Iodinated Contrast Media - IV Dye] pentazocine [From Talwin] AdvReac Fainting Verified 07/15/18 14:55 Sulfa (Sulfonamide AdvReac Nausea Verified 07/15/18 14:55 Antibiotics) catgut Allergy See Uncoded 07/15/18 14:55 Comments All Systems Review: The remainder of the systems were reviewed and are negative - Constitutional Constitutional: fatigue, weakness - Cardiovascular Cardiovascular: as per HPI Physical Examination Vital Signs, Last 4 Hours Temp Pulse Resp BP Pulse Ox 07/17/18 07:15 98 F 132 18 84/65 96 07/17/18 06:45 133 100/60 General: Conversant, No Apparent Distress HEENT: Atraumatic, Normocephaly, Mucus Membranes Moist Neck: No JVD, Normal carotid pulses Cardiac: Normal S1 and S2, No Murmur, Other (Irregularly irregular) Lungs: Other (Lung sounds diminished throughout. ) Neuro: Alert and responsive, No focal deficits noted Abdomen: Soft, Non-Tender Skin: No rashes noted on visualized skin Musculoskeletal: No Chest Wall Tenderness Extremities: No Clubbing, No Cyanosis, No Edema, Normal Pulses Results 07/17/18 04:50 07/17/18 04:50 Lab Results Impressions Chest X-Ray 07/17/18 08:14 IMPRESSION: Bronchial wall thickening right lower lung medially, unchanged. D/ / Tri Lozada MD / Tri Lozada MD Interpreting Provider: Tri Lozada MD Active Medications Amitriptyline HCl (Elavil) 50 mg PO HS [facility] Stop: 01/13/19 21:01 Last Admin: 07/16/18 21:50 Dose: 50 mg Amlodipine Besylate (Norvasc) 10 mg PO DAILY [facility]; Protocol Stop: 01/13/19 09:01 Last Admin: 07/14/18 08:15 Dose: Not Given Bethanechol Chloride (Urecholine) 50 mg PO BID [facility] Stop: 01/13/19 09:01 Last Admin: 07/17/18 08:37 Dose: 50 mg Budesonide/Formoterol Fumarate (Symbicort) 2 puff IH BIDR [facility]; Protocol Stop: 01/13/19 10:01 Last Admin: 07/17/18 10:19 Dose: 2 puff Clonazepam (Klonopin) 0.5 mg PO HS [facility] Stop: 01/13/19 21:01 Last Admin: 07/16/18 21:49 Dose: 0.5 mg Cyclobenzaprine HCl (Flexeril) 10 mg PO BID [facility] Stop: 01/13/19 21:01 Last Admin: 07/17/18 08:36 Dose: 10 mg Ferrous Sulfate (Ferrous Sulfate) 325 mg PO DAILY [facility]; Protocol Stop: 01/14/19 09:01 Last Admin: 07/17/18 08:36 Dose: 325 mg Fluticasone Propionate (Flonase) 50 mcg NS DAILY [facility]; Protocol Stop: 01/13/19 09:01 Last Admin: 07/17/18 08:37 Dose: 50 mcg Hydrocortisone Sodium Succinate (Solu-Cortef) 100 mg IVP Q8HR [facility] Stop: 01/14/19 00:01 Last Admin: 07/17/18 08:36 Dose: 100 mg Diltiazem HCl 50 mg/ Sodium (Chloride) 50 mls @ 2.5 mls/hr IVC .Q20H [facility]; Protocol Stop: 01/16/19 06:46 Last Admin: 07/17/18 07:24 Dose: 2.5 mg/hr, 2.5 mls/hr Magnesium Oxide (Mag-Ox) 400 mg PO DAILY [facility] Stop: 01/15/19 09:01 Last Admin: 07/17/18 08:36 Dose: 400 mg Metoprolol Tartrate (Lopressor) 25 mg PO BID [facility] Stop: 01/13/19 09:01 Last Admin: 07/17/18 08:37 Dose: 25 mg Naloxone HCl (Narcan) 0.4 mg IVP Q2MIN PRN PRN Reason: SEE COMMENTS Stop: 01/12/19 22:03 Nystatin (Mycostatin Suspension) 5 ml PO QID [facility] Stop: 01/14/19 09:01 Last Admin: 07/17/18 08:37 Dose: 5 ml Omeprazole (Prilosec) 40 mg PO DAILY [facility] Stop: 01/13/19 09:01 Last Admin: 07/17/18 08:37 Dose: 40 mg Pharmacy Profile Note (Patient Taking Own Medication) 4 each PO DAILY [facility] Stop: 01/13/19 09:01 Last Admin: 07/17/18 08:50 Dose: Not Given Primidone (Mysoline) 50 mg PO BID [facility] Stop: 01/13/19 09:01 Last Admin: 07/17/18 08:36 Dose: 50 mg Prochlorperazine Maleate (Compazine) 10 mg PO Q4H PRN PRN Reason: Nausea Stop: 01/16/19 08:16 Rivaroxaban (Xarelto) 20 mg PO DAILY [facility] Stop: 01/13/19 09:01 Last Admin: 07/17/18 08:37 Dose: 20 mg Ropinirole HCl (Requip) 5 mg PO HS [facility] Stop: 01/13/19 21:01 Last Admin: 07/16/18 21:49 Dose: 5 mg Simvastatin (Zocor) 40 mg PO HS [facility]; Protocol Stop: 01/13/19 21:01 Last Admin: 07/16/18 21:49 Dose: 40 mg Laboratory Tests 07/14/18 07/17/18 07/17/18 04:50 04:50 04:50 Hgb 10.3 L Potassium 4.1 Creatinine 0.66 Troponin I < 0.03 - Imaging and Cardiology Chest Xray: report reviewed Echo: report reviewed - EKG Interpretation EKG results cardiology: personally reviewed (ECG admission with SR, HR 77.), other (Telemetry reviewed with average HR previous 12 hours noted to be 126, a.fib. Currently 100s per tele.) Consult Discharge Plan - Plan Referrals: Jamil Reece MD [Primary Care Provider] -
--- NOTE | 2018-07-17 16:06 | Electrocardiograph Report ---
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
--- NOTE | 2018-07-17 16:07 | Electrocardiograph Report ---
[address] [address] Test Date: 2018-07-13 Pat Name: Jessica Brunson Department: EXAM1 Room: 2N3 Gender: F Top Spotter: : 1935 Requested By: Misael Oleary Order Number: [id number] Reading MD: Jamison Mejia Measurements Intervals [place] Rate: 71 P: [place]: QRS: -16 QRSD: 105 T: 84 QT: 419 QTc: 456 Interpretive Statements Sinus rhythm with PACs Leftward axis Electronically Signed On 07-17-2018 16:05:34 EST by Jamison Mejia
[2018-07-17 19:43] LABS: Hematocrit 32.5 % (35.3-44.9); Hemoglobin 10.5 g/dL (11.5-15.4)
[2018-07-17] MEDS: clonazePAM 0.5 MG TABLET PO SCH (20:22)
[2018-07-17] MEDS: rOPINIRole 1 MG TABLET PO SCH (21:47)
[2018-07-18] MEDS: Hydrocortisone Sodium Succ 100 MG/2 ML VIAL IVP SCH ×3 (00:37→16:50)
--- NOTE | 2018-07-18 00:38 | Event Note ---
Date of Encounter: 07/17/18 Time of Encounter: 20:48 Alerted by patient's nurse RADHA Dean the patient's heart rate remained 120s to 150s throughout dayshift. I had ordered Cardizem drip at 06:45 to start at 2.5 with titration up as needed. However titration was not done throughout the day and patient's heart rate remained 120s to 150s. In addition, timed H&H's every 6 hours were not drawn by lab. Hemoglobin is currently stable and will be monitored closely. Patient did report chest pain at beginning of shift, however troponin was negative and EKG showed A. fib RVR with T-wave deviation with T- wave anomaly. Patient currently asymptomatic. Cardiology on board. Went to see pt. w/Dr. Iglesias. Pt. was anxious but stated that she felt that she would "get through this". Dr. Iglesias and I assured the pt. that she would be monitored closely. Will give anti-anxiety medication if needed. Alerted by pts. nurse at 00:30 that the pts. HR was now 80s to 90s and pt. resting. Nurse instructed to continue to monitor the pt. closely and notify me immediately of any adverse changes.
[2018-07-18 03:38] LABS: Hematocrit 31.2 % (35.3-44.9); Mean Corpuscular HGB Conc 32.1 g/dL (31.6-35.5); Mean Corpuscular Hemoglobin 29.8 pg (28.0-33.3); Mean Corpuscular Volume 92.9 fL (83.0-100.0); Mean Platelet Volume 9.6 fL (9.4-12.4); Platelet Count 209 K/mcL (140-400); Red Blood Count 3.36 M/mcL (3.82-4.97); Red Cell Distribution Width 13.8 % (11.5-14.5)
[2018-07-18 03:54] LABS: Lymphocytes # 0.4 K/mcL (0.6-4.6); Monocytes # 1.4 K/mcL (0.0-1.3); Platelet Estimate Normal (Normal)
[2018-07-18 03:59] LABS: Alanine Aminotransferase 20 Units/L (7-52); Albumin 2.7 g/dL (3.5-5.7); Albumin/Globulin Ratio 1.1 (1.1-2.2); Alkaline Phosphatase 86 Units/L (34-104); Aspartate Amino Transferase 20 Units/L (13-39); BUN/Creatinine Ratio 23 (6-26); Bilirubin,Total 0.2 mg/dL (0.3-1.0); Blood Urea Nitrogen 18 mg/dL (8-23); Calcium 8.6 mg/dL (8.6-10.3); Carbon Dioxide 24 mEq/L (23-29); Chloride 101 mEq/L (98-107); Globulin 2.4 g/dL (2.4-3.5); Glucose 144 mg/dL (70-105); Osmolality,Calculated 282 (280-300); Potassium 3.9 mEq/L (3.5-5.1); Sodium 134 mEq/L (136-145); Total Protein 5.1 g/dL (6.4-8.9); eGFR For Non-African Americans > 60 (> 60)
--- NOTE | 2018-07-18 08:23 | Internal Med Progress Note ---
<Ashley Iglesias - Last Filed: 07/18/18 15:28> Hospitalist Progress Note - Encounter Date of Encounter: 07/18/18 Time of Encounter: 15:28 - Exam Vitals: Temp Pulse Resp BP Pulse Ox 99.8 F H 110 19 106/78 95 07/18/18 13:42 07/18/18 13:42 07/18/18 12:07 07/18/18 13:58 07/18/18 13:42 - Assessment and Plan (1) Hyponatremia Current Visit: Yes Status: Acute (2) COPD (chronic obstructive pulmonary disease) Current Visit: No Status: Chronic (3) CAD (coronary artery disease) Current Visit: No Status: Chronic (4) A-fib Current Visit: No Status: Chronic (5) Hyperkalemia Current Visit: Yes Status: Resolved (6) DVT prophylaxis Current Visit: No Status: Acute - Time Spent with Patient Total time spent is greater than 50% in coordination of care (as documented) at patient's floor/unit and/or counseling patient: Internal Medicine: Result - Labs CBC & Chem 7: 07/18/18 02:30 07/18/18 02:30 Labs: Short CBC 07/17/18 07/18/18 Range/Units 19:34 02:30 WBC 9.7 (4.3-11.1) K/mcL Hgb 10.5 L 10.0 L (11.5-15.4) g/dL Hct 32.5 L 31.2 L (35.3-44.9) % Plt Count 209 (140-400) K/mcL Neutrophils # 8.0 (1.6-8.9) K/mcL BMP 07/18/18 02:30 Sodium 134 L Potassium 3.9 Chloride 101 Carbon Dioxide 24 BUN 18 Creatinine 0.77 Glucose 144 H Calcium 8.6 Cardiac Enzymes 07/17/18 Range/Units Unknown Troponin I < 0.03 (< 0.04) ng/mL Liver Function 07/18/18 Range/Units 02:30 Total Bilirubin 0.2 L (0.3-1.0) mg/dL AST 20 (13-39) Units/L ALT 20 (7-52) Units/L Alkaline Phosphatase 86 (34-104) Units/L Albumin 2.7 L (3.5-5.7) g/dL - ABG Interpretation ABG results: ABG ABG pH 7.36 pH Units (7.32-7.45) 07/14/18 16:59 ABG pCO2 38 mmHg (35-45) 07/14/18 16:59 ABG pO2 90 mmHg (85-104) 07/14/18 16:59 ABG O2 Saturation 97 % (95-98) 07/14/18 16:59 Consult Discharge Plan - Plan Referrals: Jamil Reece MD [Primary Care Provider] - - Attending Attestation I examined this patient and my medical decision-making was reviewed with the Resident Physician. I agree with the documented findings, disposition and treatment plan as described except to the extent set forth below. Patient HR was tachycardic at 130-150s at bedside with BP normal. She had about one hour without Cardizem drip. She denies chest pain, shortness of breath. Dizziness better. VS: Reviewed, at bedside she is tachycardic with BP 130 bpm currently. BP is within normal limits. afebrile. Physical exam shows no acute distress, AAOx3, tachycardic on cardiac auscultation with clear breath sounds. A/P: hyponatremia, atrial fibrillation with RVR. Continue current management. Cardizem drip, metoprolol, Cardiology recommendations appreciated. Taper steroids. <Zenon Villalta K - Last Filed: 07/18/18 17:15> Hospitalist Progress Note - Encounter Date of Encounter: 07/18/18 Time of Encounter: 09:15 - Subjective Interval History: The patient is a 83 year-old female with PMHx stroke, HTN, COPD, CAD, hypothyroidism, and history of seizures who had presented to the ED with hyponatremia (Na 118) and hyperkalemia (K 5.9). Initially suspected hypovolemic hyponatremia given minimal PO intake so gradually fluid resuscitated to approach normal ranges. Likely adrenal insufficiency also contributing to clinical picture as patient has further improved with IV steroids as labs and vitals have stabilized. Patient seen this am, in no acute distress. Experienced episode of atrial fibrillation with RVR over the night on 07/16. At that time was given IV metoprolol 7.5 mg total and started on cardizem drip titrated to 15 mg/h. She currently feels better without any chest pain, palpitations, nausea, vomiting, lightheadedness, dizziness. She admits some mild aching L shoulder pain related to an injury she sustained years ago, this is without radiation or paresthesias. - Exam Vitals: Temp Pulse Resp BP Pulse Ox 97.9 F 107 19 125/82 96 07/18/18 07:19 07/18/18 07:19 07/18/18 07:19 07/18/18 07:00 07/18/18 05:30 Exam: Gen: Vitals noted. No acute distress. Patient appears frail. Eyes: EOMI, anicteric sclerae, moist conjunctivae; no lid-lag; Pupils equal and reactive to light; No nystagmus HENT: Atraumatic; oropharynx clear with dry mucous membranes and mild thrush, no other mucosal ulcerations; normal hard and soft palate Neck: Trachea midline; supple, no thyromegaly or lymphadenopathy Cardiac: tachycardic with irregularly irregular rhythm, S1, S2 present Pulmonary: CTA bilaterally, no wheezes, rales or rhonchi, equal chest expansion Abdomen: soft, nontender, no guarding; Ostomy bag present; No masses or hepatosplenomegaly MSK: ROM intact, no joint swelling noted Extremities: no BLE edema, nontender calf, no cyanosis or clubbing Skin: Normal temperature, dry skin with good turgor; no rash, ulcers or subcutaneous nodules Neuro: Tardive dyskinesia movement of mouth present, moves all extremities - Assessment and Plan (1) Hyponatremia Current Visit: Yes Status: Acute Assessment and Plan: Na of 134, near resolved. Continue oral intake; no IVF required. Nephro has signed-off; recommended BMP one week post-discharge and follow-up with Dr. Jimenez in four weeks. -Continue steroid taper of Solu-Cortef 50 mg IV q8H complete today by midnight; next regimen of 50mg IV q12H begin on 07/19. -Continue oral intake of fluids and regular meals. -Monitor Na with daily CMP. (2) A-fib Current Visit: No Status: Chronic Assessment and Plan: Episode of atrial fibrillation with RVR over the night on 07/16. At that time was given IV metoprolol 7.5 mg total and started on cardizem drip titrated to 15 mg/ h as HR remained elevated; vitals now approaching normal range of HR and BP. She currently feels better without any chest pain, palpitations, nausea, vomiting, lightheadedness, dizziness. Cardiology consulted. -Transition to cardizem CD 180mg PO. -Increase metoprolol to 50 mg BID PO -Continue Xarelto 20 mg QD PO -Monitor BP and HR response for any symptomatic development (3) CAD (coronary artery disease) Current Visit: No Status: Chronic Assessment and Plan: History of coronary artery disease. -Continue home medication of simvastatin 40 mg PO QD. (4) COPD (chronic obstructive pulmonary disease) Current Visit: No Status: Chronic Assessment and Plan: No acute exacerbation. -Continue oxygen NC 2L and home symbicort. (5) Hypertension Current Visit: No Status: Chronic Assessment and Plan: History of hypertension controlled with Norvasc at home. BP is being monitored carefully as treatment for Afib with RVR is being titrated so as to not induce hypotension. -Monitor BP, if trending upward may need to resume home meds (6) Hyperkalemia Current Visit: Yes Status: Resolved Assessment and Plan: K of 3.9, stabilized within normal range. -Plan as above in Hyponatremia. (7) DVT prophylaxis Current Visit: No Status: Acute Assessment and Plan: Decreased mobility limited due to Afib with RVR and relatively low activity overall. -On anticoagulation related to Afib. - Time Spent with Patient Total time spent is greater than 50% in coordination of care (as documented) at patient's floor/unit and/or counseling patient: Internal Medicine: Result - Labs CBC & Chem 7: 07/18/18 02:30 07/18/18 02:30 Labs: Short CBC 07/17/18 07/18/18 Range/Units 19:34 02:30 WBC 9.7 (4.3-11.1) K/mcL Hgb 10.5 L 10.0 L (11.5-15.4) g/dL Hct 32.5 L 31.2 L (35.3-44.9) % Plt Count 209 (140-400) K/mcL Neutrophils # 8.0 (1.6-8.9) K/mcL BMP 07/18/18 02:30 Sodium 134 L Potassium 3.9 Chloride 101 Carbon Dioxide 24 BUN 18 Creatinine 0.77 Glucose 144 H Calcium 8.6 Cardiac Enzymes 07/17/18 Range/Units Unknown Troponin I < 0.03 (< 0.04) ng/mL Liver Function 07/18/18 Range/Units 02:30 Total Bilirubin 0.2 L (0.3-1.0) mg/dL AST 20 (13-39) Units/L ALT 20 (7-52) Units/L Alkaline Phosphatase 86 (34-104) Units/L Albumin 2.7 L (3.5-5.7) g/dL - ABG Interpretation ABG results: ABG ABG pH 7.36 pH Units (7.32-7.45) 07/14/18 16:59 ABG pCO2 38 mmHg (35-45) 07/14/18 16:59 ABG pO2 90 mmHg (85-104) 07/14/18 16:59 ABG O2 Saturation 97 % (95-98) 07/14/18 16:59 - Impressions Impressions Chest X-Ray 07/17/18 08:14 IMPRESSION: Bronchial wall thickening right lower lung medially, unchanged. D/ / Tri Lozada MD / Tri Lozada MD Interpreting Provider: Tri Lozada MD <Ashley Iglesias - Last Filed: 07/18/18 15:28> (2) COPD (chronic obstructive pulmonary disease) Qualifiers: COPD type: unspecified COPD Qualified Code(s): J44.9 - Chronic obstructive pulmonary disease, unspecified (3) CAD (coronary artery disease) Qualifiers: Coronary Disease-Associated Artery/Lesion type: unspecified vessel or lesion type [place] vs. transplanted heart: [place] heart Associated angina: without angina Qualified Code(s): I25.10 - Atherosclerotic heart disease of [place] coronary artery without angina pectoris (4) A-fib Qualifiers: Atrial fibrillation type: unspecified Qualified Code(s): I48.91 - Unspecified atrial fibrillation <Zenon Villalta - Last Filed: 07/18/18 17:15> (2) A-fib Qualifiers: Atrial fibrillation type: unspecified Qualified Code(s): I48.91 - Unspecified atrial fibrillation (3) CAD (coronary artery disease) Qualifiers: Coronary Disease-Associated Artery/Lesion type: unspecified vessel or lesion type [place] vs. transplanted heart: [place] heart Associated angina: without angina Qualified Code(s): I25.10 - Atherosclerotic heart disease of [place] coronary artery without angina pectoris (4) COPD (chronic obstructive pulmonary disease) Qualifiers: COPD type: unspecified COPD Qualified Code(s): J44.9 - Chronic obstructive pulmonary disease, unspecified (5) Hypertension Qualifiers: Hypertension type: essential hypertension Qualified Code(s): I10 - Essential (primary) hypertension
[2018-07-18] MEDS: *HR* Rivaroxaban 10 MG TABLET PO SCH (09:26)
[2018-07-18] MEDS: Magnesium Oxide 400 MG TABLET PO SCH (09:26)
[2018-07-18] MEDS: Nystatin SUSP 5 ML UD.LIQ PO SCH ×4 (09:26→20:54)
[2018-07-18] MEDS: Primidone 50 MG TABLET PO SCH ×2 (09:26→20:54)
[2018-07-18] MEDS: Fluticasone Propionate Nasal 50 MCG/SPRAY BOTTLE NS SCH (09:27)
[2018-07-18] MEDS: (Bifidobacterium Infantis [Align] 4 MG) PO SCH (09:28)
--- NOTE | 2018-07-18 11:25 | Cardiology Progress Note ---
Date of Encounter: 07/18/18 Time of Encounter: 09:45 Assessment and Plan (1) Hyponatremia Current Visit: Yes Status: Acute Per cardiology: -Admitted with hyponatremia. -Nephro following. -Management per primary and nephrology services. (2) Hyperkalemia Current Visit: Yes Status: Resolved Per cardiology: -Hyperkalemic on admission, now resolved. -Management per primary service. (3) PAF (paroxysmal atrial fibrillation) Current Visit: Yes Status: Chronic Per cardiology: -Known PAF, on BB and xarelto at home. -on cardizem drip. -Average HR 108, currently on cardizem drip at 15mg/hour. -Last TTE 11/2017 with LVEF 55-60%. -Continue cardizem drip, uptitrate as BP will allow. -Will uptitrate BB. -Will continue to monitor. Discussion w patient/family: The assessment and plan as outlined above was discussed with the patient who expressed understanding and agreement. All questions were answered. Thank you for involving us in the care of your patient. Please call with any questions. Discussed and reviewed with . Subjective Principal diagnosis: hyponatremia, hyperkalemia Interval history: Patient reports she feels better today. Denies complaints. Objective Vital Signs Temperature 98.2 F 07/13/18 15:48 Pulse Rate 81 07/13/18 15:48 Respiratory Rate 20 07/13/18 15:48 Blood Pressure 117/70 07/13/18 15:48 O2 Sat by Pulse Oximetry 93 07/13/18 15:48 Temperature 97.9 F 07/18/18 07:19 Pulse Rate 107 07/18/18 07:19 Respiratory Rate 19 07/18/18 07:19 Blood Pressure 125/82 07/18/18 07:00 O2 Sat by Pulse Oximetry 96 07/18/18 05:30 Oxygen Delivery Oxygen Delivery Room Air General: Conversant, No Apparent Distress HEENT: Atraumatic, Normocephaly, Mucus Membranes Moist Neck: No JVD, Normal carotid pulses Cardiac: Normal S1 and S2, No Murmur, Other (Irregularly irregular) Lungs: Normal Breath Sounds, No Wheeze, Rales, Rhonchi Neuro: Alert and responsive, No focal deficits noted Abdomen: Soft, Non-Tender Skin: No rashes noted on visualized skin Musculoskeletal: No Chest Wall Tenderness Extremities: No Clubbing, No Cyanosis, No Edema, Normal Pulses Results 07/18/18 02:30 07/18/18 02:30 Lab Results Active Medications Amitriptyline HCl (Elavil) 50 mg PO HS [facility] Stop: 01/13/19 21:01 Last Admin: 07/17/18 20:22 Dose: 50 mg Bethanechol Chloride (Urecholine) 50 mg PO BID [facility] Stop: 01/13/19 09:01 Last Admin: 07/18/18 09:27 Dose: 50 mg Budesonide/Formoterol Fumarate (Symbicort) 2 puff IH BIDR [facility]; Protocol Stop: 01/13/19 10:01 Last Admin: 07/17/18 21:38 Dose: 2 puff Clonazepam (Klonopin) 0.5 mg PO HS [facility] Stop: 01/13/19 21:01 Last Admin: 07/17/18 20:22 Dose: 0.5 mg Cyclobenzaprine HCl (Flexeril) 10 mg PO BID [facility] Stop: 01/13/19 21:01 Last Admin: 07/18/18 09:27 Dose: 10 mg Ferrous Sulfate (Ferrous Sulfate) 325 mg PO DAILY [facility]; Protocol Stop: 01/14/19 09:01 Last Admin: 07/18/18 09:27 Dose: 325 mg Fluticasone Propionate (Flonase) 50 mcg NS DAILY [facility]; Protocol Stop: 01/13/19 09:01 Last Admin: 07/18/18 09:27 Dose: 50 mcg Hydrocortisone Sodium Succinate (Solu-Cortef) 50 mg IVP Q8HR [facility] Stop: 01/17/19 00:01 Last Admin: 07/18/18 09:27 Dose: 50 mg Diltiazem HCl 50 mg/ Sodium (Chloride) 50 mls @ 2.5 mls/hr IVC .Q20H [facility]; Protocol Stop: 01/16/19 06:46 Last Admin: 07/18/18 04:59 Dose: 15 mg/hr, 15 mls/hr Magnesium Oxide (Mag-Ox) 400 mg PO DAILY [facility] Stop: 01/15/19 09:01 Last Admin: 07/18/18 09:26 Dose: 400 mg Metoprolol Tartrate (Lopressor) 25 mg PO BID [facility] Stop: 01/13/19 09:01 Last Admin: 07/18/18 09:27 Dose: 25 mg Naloxone HCl (Narcan) 0.4 mg IVP Q2MIN PRN PRN Reason: SEE COMMENTS Stop: 01/12/19 22:03 Nystatin (Mycostatin Suspension) 5 ml PO QID [facility] Stop: 01/14/19 09:01 Last Admin: 07/18/18 09:26 Dose: 5 ml Omeprazole (Prilosec) 40 mg PO DAILY [facility] Stop: 01/13/19 09:01 Last Admin: 07/18/18 09:27 Dose: 40 mg Pharmacy Profile Note (Patient Taking Own Medication) 4 each PO DAILY [facility] Stop: 01/13/19 09:01 Last Admin: 07/18/18 09:28 Dose: Not Given Primidone (Mysoline) 50 mg PO BID [facility] Stop: 01/13/19 09:01 Last Admin: 07/18/18 09:26 Dose: 50 mg Prochlorperazine Maleate (Compazine) 10 mg PO Q4H PRN PRN Reason: Nausea Stop: 01/16/19 08:16 Rivaroxaban (Xarelto) 20 mg PO DAILY [facility] Stop: 01/13/19 09:01 Last Admin: 07/18/18 09:26 Dose: 20 mg Ropinirole HCl (Requip) 3 mg PO HS [facility] Stop: 01/13/19 21:01 Last Admin: 07/17/18 21:47 Dose: 3 mg Ropinirole HCl (Requip) 2 mg PO HS [facility] Stop: 01/16/19 21:01 Last Admin: 07/17/18 21:47 Dose: 2 mg Simvastatin (Zocor) 40 mg PO HS [facility]; Protocol Stop: 01/13/19 21:01 Last Admin: 07/17/18 20:22 Dose: 40 mg - Imaging and Cardiology Chest Xray: report reviewed Echo: report reviewed - EKG Interpretation EKG results cardiology: other (Telemetry reviewed with average HR previous 12 hours noted to be 108, a.fib. PVCs noted.) Consult Discharge Plan - Plan Referrals: Jamil Reece MD [Primary Care Provider] -
[2018-07-18] MEDS: Budesonide/Formoterol 160/4.5 1 PUFF INH IH SCH ×2 (12:06→21:05)
[2018-07-18] MEDS ORDERED: Diltiazem CD (24hr) 180 MG CAPSULE PO SCH (13:15)
--- NOTE | 2018-07-18 17:36 | Oncology Inp Consult Note ---
<Bing De Souza L - Last Filed: 07/19/18 08:37> Date of Encounter: 07/19/18 Assessment and Plan (1) Hyponatremia Status: Acute Assessment and plan: Chronic hyponatremia since 2017 Na 118 on admission---improved to 134 today Does not appear to be consistent with SIADH Nephrology consulted Improved with 1L NS and salt liberalization in diet (2) Hyperkalemia Status: Resolved Assessment and plan: Admitted with hyperkalemia and hyponatremia Uric acid, calcium and phosphate normal on admission Improved with insulin/dextrose in ED followed with hydration Deneis nausea, vomiting or diarrhea. Likely secondary to poor oral intake (3) PAF (paroxysmal atrial fibrillation) Status: Chronic Assessment and plan: Patient with known history of PAF, on BB and Xarelto at home Admitted with A-fib with RVR, cardiology has been consutled, attempting to wean off cardizem gtt and on to PO Cardizem Last TTE 11/2017 with LVEF 55-60%. 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 She was initiated on Bendamustine and Obinituzumab on 04/27/18 due to abdominal pain with extensive retroperitoneal adenopathy. Most recently status post cycle #3 on 06/22/2018. Plan: Due for cycle #4 this week, however, will hold treatment during her acute hospital stay until her acute issues resolve Will arrange for outpatient follow up Qualifiers: Lymphoma site: unspecified region Qualified Code(s): C82.10 - Follicular lymphoma grade II, unspecified site - Data of Consult Patient: known to practice within the last 3 years Consult date: 07/18/18 Requesting Physician: Ashley Iglesias MD Primary Care Provider: Jamil Reece MD - Consult Narrative History of present illness: Ms. Brunson is an 83 year old female with oncologic history significant for follicular lymphoma grade 1-2, stage III status post CT-guided biopsy of retroperitoneal lymph node March 2018. She was initiated on Bendamustine and Obinituzumab on 04/27/18 due to abdominal pain with extensive retroperitoneal adenopathy. Most recently status post cycle #3 on 06/22/2018. Patient was referred to EGD by her primary care physician after findings of electrolyte abnormalities. Patient was noted have a sodium level of 114 and potassium level .3 on admission. Patient otherwise appeared to be at baseline mentation with no focal abnormalities. EKG did not show any acute changes in ED. Patient was admitted with nephrology consultation. She was given a normal saline 250 mL bolus and started on gentle hydration. Patient states she began to feel weak and fatigued the days leading up to her admission with poor oral intake. She denies any history of fever, nausea, vomiting, diarrhea, any signs or symptoms of bleeding, chest pain, increase in shortness of breath. She lives home alone near [place]. She presented to her PCP for respiratory symptoms and was diagnosed with bronchitis treated with doxycycline and Augmentin in addition to prednisone Past Med Surg Social Fam HX - Past Medical History Medical history: atrial fibrillation, cancer, COPD, GERD, hyperlipidemia, hypertension, seizures, thyroid disease, TIA, other Additional medical history: TREMORS Psychiatric history: anxiety, depression - Past Surgical History Surgical History: cholecystectomy, hysterectomy, orthopedic, other Additional surgical history: large intestine removed. back surgery. hip replacement - Social History Smoking Status: Former smoker Smokeless Tobacco Status: No Alcohol use: none Drug use: none - Family History Brother Hx Family Cancer: Yes Father Hx Family Respiratory Disorders: Yes Hx Family Cancer: Yes Mother Living Status: Hx Family Cardiac Disorders: Yes Hx Family Endocrine Disorder: Yes Medications and Allergies RX: Budesonide/Formoterol 160/4.5 [Symbicort 160/4.5] 2 puff IH BID PRN 11/13/15 [History] RX: Ergocalciferol (VITAMIN D2) [Vitamin D2] 2,000 unit PO DAILY 11/13/15 [History] RX: Primidone [Mysoline] 100 mg PO HS 11/13/15 [History] RX: Ropinirole HCl [Requip] 5 mg PO HS 11/13/15 [History] RX: Simvastatin [Zocor] 40 mg PO HS 11/13/15 [History] RX: Amitriptyline HCl 50 mg PO DAILY 05/01/17 [History] RX: clonazePAM [Klonopin] 0.5 mg PO HS #5 tablet 05/05/17 [Rx] RX: Magnesium Oxide [Magnesium] 400 mg PO DAILY 11/05/17 [History] RX: Pantoprazole Sodium [Protonix] 40 mg PO DAILY 11/06/17 [History] RX: Rivaroxaban [Xarelto] 20 mg PO DAILY 03/09/18 [History] RX: amLODIPine [Norvasc] 10 mg PO DAILY 03/09/18 [History] RX: Bethanechol [Urecholine] 50 mg PO BID 03/23/18 [History] RX: Bifidobacterium Infantis [Align] 4 mg PO DAILY 03/23/18 [History] RX: Cranberry 500 mg PO BID 03/23/18 [History] RX: Cyanocobalamin (Vitamin B-12) [Vitamin B-12] 1,000 mcg PO DAILY 03/23/18 [History] RX: Fluticasone Propionate Nasal [Flonase] 2 spray NS QAM 03/23/18 [History] RX: Metoprolol [Lopressor] 75 mg PO DAILY 03/23/18 [History] RX: Omeprazole [PriLOSEC] 40 mg PO BID 03/23/18 [History] RX: Albuterol Sulfate [Proair Hfa] 1 puff IH Q6H PRN 06/01/18 [History] RX: Ferrous Sulfate [Iron] 325 mg PO DAILY 06/01/18 [History] RX: Ipratropium/Albuterol Neb [Duoneb] 3 ml IH Q6HR PRN 06/01/18 [History] Cyclobenzaprine [Flexeril] 10 mg PO BID PRN 06/15/18 [History] Ondansetron HCl 4 mg PO Q4H PRN 07/15/18 [History] Oxybutynin [Ditropan] 5 mg PO BID 07/15/18 [History] Prochlorperazine Maleate [Compazine] 10 mg PO Q4H PRN 07/15/18 [History] RX: Amoxicillin/Clavulanate [AUGMENTIN Susp] 10 ml PO BID 07/15/18 [History] RX: Fluconazole [Diflucan] 100 mg PO DAILY 07/15/18 [History] RX: Nitrofurantoin [Macrodantin] 50 mg PO DAILY 07/15/18 [History] predniSONE [PredniSONE] See Taper PO AD 07/15/18 [History] Allergy/AdvReac Type Severity Reaction Status Date / Time morphine Allergy Fainting Verified 07/15/18 14:55 propoxyphene [From Darvon] Allergy Fainting Verified 07/15/18 14:55 aspirin [ASA] AdvReac See Verified 07/15/18 14:55 Comments codeine AdvReac Fainting Verified 07/15/18 14:55 gabapentin AdvReac Nausea Verified 07/15/18 14:55 Iodinated Contrast- Oral and AdvReac "knocked Verified 07/15/18 14:55 IV Dye out" [Iodinated Contrast Media - IV Dye] pentazocine [From Talwin] AdvReac Fainting Verified 07/15/18 14:55 Sulfa (Sulfonamide AdvReac Nausea Verified 07/15/18 14:55 Antibiotics) catgut Allergy See Uncoded 07/15/18 14:55 Comments Consult Discharge Plan - Plan Referrals: Jamil Reece MD [Primary Care Provider] - Inpatient Charges Provider: Dr. Brian Galeas <Deuce Galeas - Last Filed: 07/20/18 08:02> Date of Encounter: 07/20/18 Time of Encounter: 16:00 - Data of Consult Requesting Physician: Ashley Iglesias MD Primary Care Provider: Jamil Reece MD - Consult Narrative Reason for consult: Lymphoma All systems: reviewed and no additional remarkable complaints except as stated Constitutional: Present: daytime sleepiness, fatigue, weakness Eyes: Present: as per HPI Ears: Present: as per HPI Nose, mouth and throat: Present: as per HPI Cardiovascular: Present: dyspnea on exertion, rapid heart rate Respiratory: Present: dyspnea on exertion Gastrointestinal: Present: as per HPI Genitourinary: Present: as per HPI Musculoskeletal: Present: as per HPI Neurological: Present: as per HPI Endocrine: Present: as per HPI Oncology - Exam - Constitutional General appearance: average body habitus, no acute distress - Head Head exam: Present: atraumatic, normal inspection, normocephalic - Eye Eye exam: Present: EOMI, normal appearance, conjuntiva pink, sclera anicteric - ENT ENT exam: Present: mucous membranes moist, normal oropharynx - Neck Neck exam: Present: full ROM - Respiratory Respiratory exam: Present: CTAB - Cardiovascular Cardiovascular exam: Present: tachycardia - GI/Abdominal GI/Abdominal exam: Present: normal bowel sounds, soft - Extremities Exam Extremities exam: Present: normal inspection - Back Exam Back exam: Present: normal inspection - Neurological Exam Neurological exam: Present: alert, CN II-XII intact, oriented X3 Oncology Inpatient Results Labs: Laboratory Results - last 24 hr 07/18/18 07/18/18 02:30 02:30 WBC 9.7 RBC 3.36 L Hgb 10.0 L Hct 31.2 L MCV 92.9 MCH 29.8 MCHC 32.1 RDW 13.8 Plt Count 209 MPV 9.6 Seg Neutrophils % 82.0 Lymphocytes % 4.0 Monocytes % 14.0 Neutrophils # 8.0 Lymphocytes # 0.4 L Monocytes # 1.4 H Platelet Estimate Normal Sodium 134 L Potassium 3.9 Chloride 101 Carbon Dioxide 24 BUN 18 Creatinine 0.77 Est GFR ( Amer) > 60 Est GFR (Non-Af Amer) > 60 BUN/Creatinine Ratio 23 Glucose 144 H Calculated Osmolality 282 Calcium 8.6 Total Bilirubin 0.2 L AST 20 ALT 20 Alkaline Phosphatase 86 Serum Total Protein 5.1 L Albumin 2.7 L Globulin 2.4 Albumin/Globulin Ratio 1.1 - Attending Attestation I have seen and examined Ms. Keith agree with the assessment by Ms. de souza. Ms. Brunson is currently undergoing treatment for low-grade follicular lymphoma. She is due for treatment this week. She is admitted for atrial fibrillation with RVR. On exam, she continues to have tachycardia. Breathing is stable, but she has CAMPBELL. Lungs are clear. Blood counts remain stable. Regarding her lymphoma, we will hold on therapy until her acute issues resolved. We will reschedule follow-up after discharge. Inpatient Charges Consult - Inpatient Medicare Only: [id number]
[2018-07-18] MEDS: clonazePAM 0.5 MG TABLET PO SCH (20:53)
[2018-07-18] MEDS: rOPINIRole 1 MG TABLET PO SCH (20:54)
[2018-07-19] MEDS: Hydrocortisone Sodium Succ 100 MG/2 ML VIAL IVP SCH ×3 (01:00→21:31)
[2018-07-19 06:21] LABS: Hematocrit 31.3 % (35.3-44.9); Hemoglobin 10.1 g/dL (11.5-15.4); Mean Corpuscular HGB Conc 32.3 g/dL (31.6-35.5); Mean Corpuscular Volume 92.9 fL (83.0-100.0); Mean Platelet Volume 9.5 fL (9.4-12.4); Monocytes # 1.3 K/mcL (0.0-1.3); Platelet Count 176 K/mcL (140-400); Red Blood Count 3.37 M/mcL (3.82-4.97); Red Cell Distribution Width 13.9 % (11.5-14.5)
[2018-07-19 06:37] LABS: BUN/Creatinine Ratio 25 (6-26); Blood Urea Nitrogen 19 mg/dL (8-23); Calcium 8.8 mg/dL (8.6-10.3); Carbon Dioxide 24 mEq/L (23-29); Chloride 103 mEq/L (98-107); Glucose 131 mg/dL (70-105); Osmolality,Calculated 276 (280-300); Phosphorous 2.7 mg/dL (2.7-4.5); Potassium 3.7 mEq/L (3.5-5.1); Sodium 131 mEq/L (136-145); eGFR For Non-African Americans > 60 (> 60)
[2018-07-19 06:45] LABS: Eosinophils # 0.2 K/mcL (0.0-0.6); Lymphocytes # 0.2 K/mcL (0.6-4.6); Platelet Estimate Normal (Normal)
[2018-07-19 07:52] LABS: Magnesium 1.5 mg/dL (1.6-2.6)
[2018-07-19] MEDS: Nystatin SUSP 5 ML UD.LIQ PO SCH ×4 (09:37→17:18)
[2018-07-19] MEDS: Diltiazem CD (24hr) 240 MG CAPSULE PO SCH (09:37)
[2018-07-19] MEDS: Primidone 50 MG TABLET PO SCH ×2 (09:37→21:30)
[2018-07-19] MEDS: Magnesium Oxide 400 MG TABLET PO SCH (09:37)
[2018-07-19] MEDS: *HR* Rivaroxaban 10 MG TABLET PO SCH (09:37)
[2018-07-19] MEDS: Fluticasone Propionate Nasal 50 MCG/SPRAY BOTTLE NS SCH (09:39)
[2018-07-19] MEDS: (Bifidobacterium Infantis [Align] 4 MG) PO SCH (09:39)
--- NOTE | 2018-07-19 10:33 | Cardiology Progress Note ---
Date of Encounter: 07/19/18 Time of Encounter: 08:30 Assessment and Plan (1) Hyponatremia Current Visit: Yes Status: Acute Per cardiology: -Admitted with hyponatremia. -Nephro following. -Management per primary and nephrology services. (2) Hyperkalemia Current Visit: Yes Status: Resolved Per cardiology: -Hyperkalemic on admission, now resolved. -Management per primary service. (3) PAF (paroxysmal atrial fibrillation) Current Visit: Yes Status: Chronic Per cardiology: -Known PAF, on BB and xarelto at home. -on cardizem drip, cardizem 180mg po. -Average HR 105, currently on cardizem drip at 10mg/hour. -Last TTE 11/2017 with LVEF 55-60%. -Will increase oral cardizem, attempt to wean cardizem drip to off for HR less than 100. -Will continue to monitor Discussion w patient/family: The assessment and plan as outlined above was discussed with the patient who expressed understanding and agreement. All questions were answered. Thank you for involving us in the care of your patient. Please call with any questions. Discussed and reviewed with . Subjective Principal diagnosis: hyponatremia, hyperkalemia Interval history: Patient reports she feels great today. Denies complaints. Objective Vital Signs, Last 4 Hours Temp Pulse Resp BP Pulse Ox 07/19/18 07:51 98.3 F 110 16 129/93 95 General: Conversant, No Apparent Distress HEENT: Atraumatic, Normocephaly, Mucus Membranes Moist Neck: No JVD, Normal carotid pulses Cardiac: Normal S1 and S2, No Murmur, Other (irregularly irregular) Lungs: Normal Breath Sounds, No Wheeze, Rales, Rhonchi Neuro: Alert and responsive, No focal deficits noted Abdomen: Soft, Non-Tender Skin: No rashes noted on visualized skin Musculoskeletal: No Chest Wall Tenderness Extremities: No Clubbing, No Cyanosis, No Edema, Normal Pulses Results 07/19/18 06:00 07/19/18 06:00 Lab Results Active Medications Amitriptyline HCl (Elavil) 50 mg PO HS SAMINA Stop: 01/13/19 21:01 Last Admin: 07/18/18 20:54 Dose: 50 mg Bethanechol Chloride (Urecholine) 50 mg PO BID SAMINA Stop: 01/13/19 09:01 Last Admin: 07/19/18 09:37 Dose: 50 mg Budesonide/Formoterol Fumarate (Symbicort) 2 puff IH BIDR [facility]; Protocol Stop: 01/13/19 10:01 Last Admin: 07/18/18 21:05 Dose: 2 puff Clonazepam (Klonopin) 0.5 mg PO HS [facility] Stop: 01/13/19 21:01 Last Admin: 07/18/18 20:53 Dose: 0.5 mg Cyclobenzaprine HCl (Flexeril) 10 mg PO BID [facility] Stop: 01/13/19 21:01 Last Admin: 07/19/18 09:37 Dose: 10 mg Diltiazem HCl (Cardizem Cd) 240 mg PO DAILY [facility] Stop: 01/18/19 09:01 Last Admin: 07/19/18 09:37 Dose: 240 mg Ferrous Sulfate (Ferrous Sulfate) 325 mg PO DAILY [facility]; Protocol Stop: 01/14/19 09:01 Last Admin: 07/19/18 09:37 Dose: 325 mg Fluticasone Propionate (Flonase) 50 mcg NS DAILY [facility]; Protocol Stop: 01/13/19 09:01 Last Admin: 07/19/18 09:39 Dose: 50 mcg Hydrocortisone Sodium Succinate (Solu-Cortef) 50 mg IVP BID [facility] Stop: 01/18/19 09:01 Last Admin: 07/19/18 09:38 Dose: 50 mg Diltiazem HCl 50 mg/ Sodium (Chloride) 50 mls @ 2.5 mls/hr IVC .Q20H [facility]; Protocol Stop: 01/16/19 06:46 Last Admin: 07/19/18 09:42 Dose: 10 mg/hr, 10 mls/hr Magnesium Oxide (Mag-Ox) 400 mg PO DAILY [facility] Stop: 01/15/19 09:01 Last Admin: 07/19/18 09:37 Dose: 400 mg Metoprolol Tartrate (Lopressor) 50 mg PO BID [facility] Stop: 01/17/19 21:01 Last Admin: 07/19/18 09:37 Dose: 50 mg Naloxone HCl (Narcan) 0.4 mg IVP Q2MIN PRN PRN Reason: SEE COMMENTS Stop: 01/12/19 22:03 Nystatin (Mycostatin Suspension) 5 ml PO QID [facility] Stop: 01/14/19 09:01 Last Admin: 07/19/18 09:37 Dose: 5 ml Omeprazole (Prilosec) 40 mg PO DAILY [facility] Stop: 01/13/19 09:01 Last Admin: 07/19/18 09:37 Dose: 40 mg Pharmacy Profile Note (Patient Taking Own Medication) 4 each PO DAILY [facility] Stop: 01/13/19 09:01 Last Admin: 07/19/18 09:39 Dose: Not Given Primidone (Mysoline) 50 mg PO BID [facility] Stop: 01/13/19 09:01 Last Admin: 07/19/18 09:37 Dose: 50 mg Prochlorperazine Maleate (Compazine) 10 mg PO Q4H PRN PRN Reason: Nausea Stop: 01/16/19 08:16 Rivaroxaban (Xarelto) 20 mg PO DAILY [facility] Stop: 01/13/19 09:01 Last Admin: 07/19/18 09:37 Dose: 20 mg Ropinirole HCl (Requip) 3 mg PO HS [facility] Stop: 01/13/19 21:01 Last Admin: 07/18/18 20:53 Dose: 3 mg Ropinirole HCl (Requip) 2 mg PO HS [facility] Stop: 01/16/19 21:01 Last Admin: 07/18/18 20:54 Dose: 2 mg Simvastatin (Zocor) 40 mg PO HS [facility]; Protocol Stop: 01/13/19 21:01 Last Admin: 07/18/18 20:54 Dose: 40 mg - Imaging and Cardiology Chest Xray: report reviewed Echo: report reviewed - EKG Interpretation EKG results cardiology: other (Telemetry reviewed with average HR previous 12 hours noted to be 105, afib. PVCs noted.) Consult Discharge Plan - Plan Referrals: Jamil Reece MD [Primary Care Provider] -
[2018-07-19 10:45] LABS: Thyroid Stimulating Hormone 0.393 mcIU/mL (0.340-5.600)
[2018-07-19] MEDS: Budesonide/Formoterol 160/4.5 1 PUFF INH IH SCH ×2 (10:47→20:36)
--- NOTE | 2018-07-19 11:36 | Internal Med Progress Note ---
<PawanZenon Darlene - Last Filed: 07/19/18 18:07> Hospitalist Progress Note - Encounter Date of Encounter: 07/19/18 Time of Encounter: 09:00 - Subjective Interval History: The patient is a 83 year-old female with PMHx stroke, HTN, COPD, CAD, hypothyroidism, and history of seizures who had presented to the ED with hyponatremia (Na 118) and hyperkalemia (K 5.9). Initially suspected hypovolemic hyponatremia given minimal PO intake so gradually fluid resuscitated to approach normal ranges. Likely adrenal insufficiency also contributing to clinical picture as patient has further improved with IV steroids as labs and vitals have stabilized. Episode of atrial fibrillation with RVR over night on 07/16, increased metoprolol and started cardizem. Patient seen this am, in no acute distress. HR consistently 110 during the night. She is asymptomatic and denies chest pain, palpitations, nausea, vomiting, lightheadedness, dizziness. Her prior L shoulder pain has improved since she has been able to sit up in the chair. She has mild increase in respirations but lungs are clear bilaterally without wheeze. Oncology has met with the patient and plans to postpone therapy for the lymphoma until acute issues have resolved; follow-up to be scheduled after discharge. - Exam Vitals: Temp Pulse Resp BP Pulse Ox 98.3 F 110 16 129/93 96 07/19/18 07:51 07/19/18 07:51 07/19/18 10:47 07/19/18 07:51 07/19/18 10:47 Exam: Gen: Vitals noted. No acute distress. Patient appears frail. Eyes: EOMI, anicteric sclerae, moist conjunctivae; no lid-lag; Pupils equal and reactive to light; No nystagmus HENT: Atraumatic; oropharynx clear with dry mucous membranes and mild thrush, no other mucosal ulcerations; normal hard and soft palate Neck: Trachea midline; supple, no thyromegaly or lymphadenopathy Cardiac: Tachycardic with irregularly irregular rhythm, S1, S2 present Pulmonary: Mild tachypnea, CTA bilaterally, no wheezes, rales or rhonchi, equal chest expansion Abdomen: soft, nontender, no guarding; Ostomy bag present; No masses or hepatosplenomegaly MSK: ROM intact, no joint swelling noted Extremities: no BLE edema, nontender calf, no cyanosis or clubbing Skin: Normal temperature, dry skin with good turgor; no rash, ulcers or subcutaneous nodules Neuro: Tardive dyskinesia movement of mouth present, moves all extremities - Assessment and Plan (1) Hyponatremia Current Visit: Yes Status: Acute Assessment and Plan: Slight decrease to Na of 131. Continue oral intake; no IVF required. Nephro has signed-off; recommended BMP one week post-discharge and follow-up with Dr. Jimenez in four weeks. -Continue steroid taper of Solu-Cortef 50mg IV q12H today. -Continue oral intake of fluids and regular meals. -Monitor Na with daily CMP. (2) A-fib Current Visit: No Status: Chronic Assessment and Plan: AFib has persisted with RVR and HR 110+ over night as lower dose of cardizem was implemented. Patient is otherwise asymptomatic without any chest pain, palpitations, nausea, vomiting, lightheadedness, dizziness. Considering other etiologies of tachycardia including abnormal K, hypomagnesemia, and hyperthyroidism. K of 3.7, Mg of 1.5, TSH 0.393, and free T4 0.78. Consider correction of electrolytes and increase of cardizem to initial levels of 15 mg/h equivalent. Cardiology consulted for titration of rhythm control. -Increase to cardizem CD 240 mg PO and cardizem 7.5 mg/h IV; attempt to wean as HR decreases to <100 bpm -Continue metoprolol 50 mg BID PO -Continue Xarelto 20 mg QD PO -Monitor BP and HR response for any symptomatic development (3) Hypomagnesemia Current Visit: Yes Status: Acute Assessment and Plan: Mg of 1.5. Consider as contributing factor to tachycardia vs Afib with RVR. Will replete to support normal CV electrolyte status. -MgSO4 2g IV once (4) CAD (coronary artery disease) Current Visit: No Status: Chronic Assessment and Plan: History of coronary artery disease. -Continue home medication of simvastatin 40 mg PO QD. (5) COPD (chronic obstructive pulmonary disease) Current Visit: No Status: Chronic Assessment and Plan: Mild tachypnea on exam. No acute exacerbation. -Continue oxygen NC 2L and home symbicort. (6) Hypertension Current Visit: No Status: Chronic Assessment and Plan: History of hypertension controlled with Norvasc at home. BP is being monitored carefully as treatment for Afib with RVR has been increased due to remaining HR >100 over night; will continue to titrate but avoid hypotension. -Monitor BP, if trending upward may need to resume home meds (7) Hyperkalemia Current Visit: Yes Status: Resolved Assessment and Plan: K slight decrease to 3.7. Consider oral supplementation to keep within normal range. -KCl 40 meq PO x1 -Plan as above in Hyponatremia (8) DVT prophylaxis Current Visit: No Status: Acute Assessment and Plan: Decreased mobility limited due to Afib with RVR and relatively low activity overall. -On anticoagulation related to Afib. - Time Spent with Patient Total time spent is greater than 50% in coordination of care (as documented) at patient's floor/unit and/or counseling patient: Internal Medicine: Result - Labs CBC & Chem 7: 07/19/18 06:00 07/19/18 06:00 Labs: Short CBC 07/19/18 Range/Units 06:00 WBC 10.7 (4.3-11.1) K/mcL Hgb 10.1 L (11.5-15.4) g/dL Hct 31.3 L (35.3-44.9) % Plt Count 176 (140-400) K/mcL Neutrophils # 9.0 H (1.6-8.9) K/mcL BMP 07/19/18 06:00 Sodium 131 L Potassium 3.7 Chloride 103 Carbon Dioxide 24 BUN 19 Creatinine 0.75 Glucose 131 H Calcium 8.8 - ABG Interpretation ABG results: ABG ABG pH 7.36 pH Units (7.32-7.45) 07/14/18 16:59 ABG pCO2 38 mmHg (35-45) 07/14/18 16:59 ABG pO2 90 mmHg (85-104) 07/14/18 16:59 ABG O2 Saturation 97 % (95-98) 07/14/18 16:59 Consult Discharge Plan - Plan Referrals: Jamil Reece MD [Primary Care Provider] - <Ashley Iglesias - Last Filed: 07/20/18 07:49> Hospitalist Progress Note - Encounter Date of Encounter: 07/20/18 - Exam Vitals: Temp Pulse Resp BP Pulse Ox 98.3 F 89 17 97/65 98 07/20/18 07:26 07/20/18 07:26 07/20/18 05:03 07/20/18 07:26 07/20/18 05:03 - Assessment and Plan (1) Hyponatremia Current Visit: Yes Status: Acute (2) COPD (chronic obstructive pulmonary disease) Current Visit: No Status: Chronic (3) CAD (coronary artery disease) Current Visit: No Status: Chronic (4) A-fib Current Visit: No Status: Chronic (5) Hyperkalemia Current Visit: Yes Status: Resolved (6) DVT prophylaxis Current Visit: No Status: Acute - Time Spent with Patient Total time spent is greater than 50% in coordination of care (as documented) at patient's floor/unit and/or counseling patient: Internal Medicine: Result - Labs CBC & Chem 7: 07/20/18 04:28 07/20/18 04:28 Labs: Short CBC 07/20/18 Range/Units 04:28 WBC 10.2 (4.3-11.1) K/mcL Hgb 9.8 L (11.5-15.4) g/dL Hct 30.0 L (35.3-44.9) % Plt Count 173 (140-400) K/mcL Neutrophils # 9.0 H (1.6-8.9) K/mcL BMP 07/19/18 07/20/18 06:00 04:28 Sodium 131 L 134 L Potassium 3.7 4.4 Chloride 103 106 Carbon Dioxide 24 23 BUN 19 21 Creatinine 0.75 0.94 Glucose 131 H 161 H Calcium 8.8 8.9 - ABG Interpretation ABG results: ABG ABG pH 7.36 pH Units (7.32-7.45) 07/14/18 16:59 ABG pCO2 38 mmHg (35-45) 07/14/18 16:59 ABG pO2 90 mmHg (85-104) 07/14/18 16:59 ABG O2 Saturation 97 % (95-98) 07/14/18 16:59 - Attending Attestation I examined this patient and my medical decision-making was reviewed with the Resident Physician and Medical Student. I agree with the documented findings, disposition and treatment plan as described except to the extent set forth below. No complaints this AM. HR ranges 90s-120s. VS: reviewed, HR as mentioned, BP within normal limits. Labs: reviewed. PE: no acute distress, CVS: tachycardia, lungs CTAB. Continue steroid taper, monitor serum sodium, Cardiology following for afib with RVR, goal to titrate off of Cardizem drip today. ____ <Zenon Villalta - Last Filed: 07/19/18 18:07> (2) A-fib Qualifiers: Atrial fibrillation type: unspecified Qualified Code(s): I48.91 - Unspecified atrial fibrillation (4) CAD (coronary artery disease) Qualifiers: Coronary Disease-Associated Artery/Lesion type: unspecified vessel or lesion type [place] vs. transplanted heart: [place] heart Associated angina: without angina Qualified Code(s): I25.10 - Atherosclerotic heart disease of [place] coronary artery without angina pectoris (5) COPD (chronic obstructive pulmonary disease) Qualifiers: COPD type: unspecified COPD Qualified Code(s): J44.9 - Chronic obstructive pulmonary disease, unspecified (6) Hypertension Qualifiers: Hypertension type: essential hypertension Qualified Code(s): I10 - Essential (primary) hypertension <Ashley Iglesias - Last Filed: 07/20/18 07:49> (2) COPD (chronic obstructive pulmonary disease) Qualifiers: COPD type: unspecified COPD Qualified Code(s): J44.9 - Chronic obstructive pulmonary disease, unspecified (3) CAD (coronary artery disease) Qualifiers: Coronary Disease-Associated Artery/Lesion type: unspecified vessel or lesion type [place] vs. transplanted heart: [place] heart Associated angina: without angina Qualified Code(s): I25.10 - Atherosclerotic heart disease of [place] coronary artery without angina pectoris (4) A-fib Qualifiers: Atrial fibrillation type: unspecified Qualified Code(s): I48.91 - Unspecified atrial fibrillation
--- NOTE | 2018-07-19 15:00 | Oncology Inp Progress Note ---
<Bing De Souza L - Last Filed: 07/19/18 17:12> Date of Encounter: 07/19/18 Time of Encounter: 14:30 (1) Hyponatremia Current Visit: Yes Status: Acute Assessment and plan: Chronic hyponatremia since 2017 Na 118 on admission---improved to 131 today Does not appear to be consistent with SIADH Nephrology consulted Improved with 1L NS and salt liberalization in diet (2) Hyperkalemia Current Visit: Yes Status: Resolved Assessment and plan: Admitted with hyperkalemia and hyponatremia Uric acid, calcium and phosphate normal on admission Improved with insulin/dextrose in ED followed with hydration Denies nausea, vomiting or diarrhea. Likely secondary to poor oral intake (3) PAF (paroxysmal atrial fibrillation) Current Visit: Yes Status: Chronic Assessment and plan: Patient with known history of PAF, on BB and Xarelto at home Admitted with A-fib with RVR, cardiology has been consutled, attempting to wean off cardizem gtt and on to PO Cardizem Last TTE 11/2017 with LVEF 55-60%. 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 She was initiated on Bendamustine and Obinituzumab on 04/27/18 due to abdominal pain with extensive retroperitoneal adenopathy. Most recently status post cycle #3 on 06/22/2018. Plan: Due for cycle #4 this week, however, will hold treatment during her acute hospital stay until her acute issues resolve, will reschedule for follow up as outpatient end of next week with Dr. Cowan We will otherwise plan to sign off, please feel free to contact with any further questions or concerns. Qualifiers: Lymphoma site: unspecified region Qualified Code(s): C82.10 - Follicular lymphoma grade II, unspecified site Oncology: Subj Interval history: Ms. Brunson is resting comfortably. No acute events noted overnight. Denies pain, nausea, vomiting, diarrhea, chest pain, worsening SOB, fever or chills. She has been upt to chair for a good bit of the day. Ambulated with assistance of staff. 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 - Constitutional General appearance: cooperative, no acute distress - Head Head exam: Present: atraumatic - ENT ENT exam: Present: mucous membranes moist, normal oropharynx - Respiratory Respiratory exam: Present: CTAB. Absent: respiratory distress - Cardiovascular Cardiovascular exam: Present: irregular rhythm - GI/Abdominal GI/Abdominal exam: Present: normal bowel sounds, soft. Absent: tenderness - Extremities Exam Extremities exam: Present: normal inspection. Absent: calf tenderness - Neurological Exam Neurological exam: Present: alert, oriented X3, no focal deficits, strengths equal and symetr throughout - Psychiatric Psychiatric exam: Present: normal affect, normal mood - Skin Skin exam: Present: dry, intact, normal color, warm Oncology: Obj Data - Labs CBC & Chem 7: 07/19/18 06:00 07/19/18 06:00 Consult Discharge Plan - Plan Referrals: Jamil Reece MD [Primary Care Provider] - Inpatient Charges Provider: Dr. Brian Galeas <GudeliaDeuce Sincere - Last Filed: 07/20/18 07:59> Date of Encounter: 07/19/18 Oncology: Obj Data - Labs CBC & Chem 7: 07/20/18 04:28 07/20/18 04:28 Inpatient Charges Provider: Dr. Brian Galeas Follow up - Inpatient: [id number] - Attending Attestation I examined this patient and my medical decision-making was reviewed with the Advanced Practice Nurse. I agree with the documented findings, disposition and treatment plan as described except to the extent set forth below. Ms. Vásquez is doing better today. Her heart rate is within normal range. She is feeling better. Examination reveals lungs that are clear to auscultation. Heart irregular irregular rate controlled. Regarding her lymphoma, we will delay her therapy by 1 week. We will schedule outpatient follow-up with Dr. Cowan after discharge next week. We will otherwise sign off. Please call with concerns or questions
--- NOTE | 2018-07-19 17:01 | Event Note ---
Date of Encounter: 07/19/18 Time of Encounter: 17:00 - Cardiology Event Note Patient now rate controlled on oral cardizem and BB. Cardizem drip off. Continue anticoagulation. Cardiology will sign off, will arrange outpatient follow up.
[2018-07-19] MEDS: rOPINIRole 1 MG TABLET PO SCH (21:30)
[2018-07-19] MEDS: clonazePAM 0.5 MG TABLET PO SCH (21:30)
[2018-07-19] MEDS: *HR* Metoprolol 5 MG/5 ML VIAL IVP SCH ×3 (22:47→23:27)
[2018-07-20 04:45] LABS: Hemoglobin 9.8 g/dL (11.5-15.4); Mean Corpuscular HGB Conc 32.7 g/dL (31.6-35.5); Mean Corpuscular Hemoglobin 30.2 pg (28.0-33.3); Mean Corpuscular Volume 92.3 fL (83.0-100.0); Mean Platelet Volume 9.8 fL (9.4-12.4); Platelet Count 173 K/mcL (140-400); Red Blood Count 3.25 M/mcL (3.82-4.97); Red Cell Distribution Width 13.9 % (11.5-14.5)
[2018-07-20 05:00] LABS: BUN/Creatinine Ratio 22 (6-26); Blood Urea Nitrogen 21 mg/dL (8-23); Calcium 8.9 mg/dL (8.6-10.3); Carbon Dioxide 23 mEq/L (23-29); Chloride 106 mEq/L (98-107); Glucose 161 mg/dL (70-105); Magnesium 1.9 mg/dL (1.6-2.6); Osmolality,Calculated 284 (280-300); Potassium 4.4 mEq/L (3.5-5.1); Sodium 134 mEq/L (136-145); eGFR For Non-African Americans 57 (> 60)
[2018-07-20 05:32] LABS: Lymphocytes # 0.4 K/mcL (0.6-4.6); Monocytes # 0.8 K/mcL (0.0-1.3)
[2018-07-20] MEDS: Hydrocortisone Sodium Succ 100 MG/2 ML VIAL IVP SCH ×2 (07:49→20:37)
[2018-07-20] MEDS: Nystatin SUSP 5 ML UD.LIQ PO SCH ×4 (07:49→20:37)
[2018-07-20] MEDS: Magnesium Oxide 400 MG TABLET PO SCH (07:49)
[2018-07-20] MEDS: Primidone 50 MG TABLET PO SCH ×2 (07:49→20:37)
[2018-07-20] MEDS: Budesonide/Formoterol 160/4.5 1 PUFF INH IH SCH ×2 (07:49→21:42)
[2018-07-20] MEDS: *HR* Rivaroxaban 10 MG TABLET PO SCH (07:49)
[2018-07-20] MEDS: (Bifidobacterium Infantis [Align] 4 MG) PO SCH (07:50)
[2018-07-20] MEDS: Fluticasone Propionate Nasal 50 MCG/SPRAY BOTTLE NS SCH (07:50)
[2018-07-20] MEDS ORDERED: *HR* Digoxin 0.5 MG/2 ML AMPUL IVP ONE (09:20)
--- NOTE | 2018-07-20 09:36 | Event Note ---
Date of Encounter: 07/20/18 Time of Encounter: 09:31 She was seen and examined. I agree with the progress note as written by the resident physician. Patient was admitted initially with abnormal labs including hyponatremia and hyperkalemia. Sodium was 118 on admission. Potassium was 5.9. All of those seem to have corrected with gentle hydration. Nephrology was following along. While she is here she was evaluated by oncology for history of follicular lymphoma for which she was due for cycle #4. She has a history of paroxysmal A. fib and has went into A. fib with RVR couple times and converted with IV Cardizem including the drip. Cardiology was following seem to have signed off after she was taken off the drip and had her Cardizem oral uptitrated. Unfortunately she went into A. fib with RVR again last night now she is again on the Cardizem drip at 7.5 per hour. Cardiology were made aware and given the patient digoxin. Otherwise patient is feeling well. GEN: NAD CVS: Irregular. S1, S2, No m/r/g RESP: CTAB ABD: Soft, NT, ND, +BS EXT: No edema. 2+ DP. No rashes NEURO: Nonfocal The patient heart rate is issue currently. Otherwise she can be discharged once that is consistently controlled The patient is on lopressor as well On Xarelto for anticoagulation Electrolytes acceptable We will need to switch her to a hydrocortisone taper Continue the rest of her medications from home Labs in the morning. Follow-up with Dr. Jimenez in 4 weeks or so.
--- NOTE | 2018-07-20 10:23 | Internal Med Progress Note ---
Hospitalist Progress Note - Encounter Date of Encounter: 07/20/18 Time of Encounter: 09:45 - Subjective Interval History: The patient is a 83 year-old female with PMHx stroke, HTN, COPD, CAD, hypothyroidism, and history of seizures who had presented to the ED with hyponatremia (Na 118) and hyperkalemia (K 5.9). Initially suspected hypovolemic hyponatremia given minimal PO intake so gradually fluid resuscitated to approach normal ranges. Likely adrenal insufficiency also contributing to clinical picture as patient has further improved with IV steroids as labs and vitals have stabilized. Episode of atrial fibrillation with RVR over night on 07/16, increased metoprolol and started cardizem. Pt was continued with PO cardizem and weaned off IV cardizem as HR was stabilizing. Patient seen this am, in no acute distress. Second episode of Afib with RVR over night after IV cardizem was discontinued. Cardiology has restarted IV cardizem to titrate off into adding digoxin. She is asymptomatic and denies chest pain, palpitations, nausea, vomiting, lightheadedness, dizziness, changes in dyspnea. She also endorses decreasing her time in bed as she is able and admits increased stamina and strength with PT sessions. - Exam Vitals: Temp Pulse Resp BP Pulse Ox 98.3 F 84 17 107/64 98 07/20/18 07:26 07/20/18 09:00 07/20/18 05:03 07/20/18 09:00 07/20/18 05:03 Exam: Gen: Vitals noted. No acute distress. Patient appears frail. Eyes: EOMI, anicteric sclerae, moist conjunctivae; no lid-lag; Pupils equal and reactive to light; No nystagmus HENT: Atraumatic; oropharynx clear with dry mucous membranes and mild thrush, no other mucosal ulcerations; normal hard and soft palate Neck: Trachea midline; supple, no thyromegaly or lymphadenopathy Cardiac: Regular rate with irregularly irregular rhythm, S1, S2 present Pulmonary: CTA bilaterally, no wheezes, rales or rhonchi, equal chest expansion Abdomen: soft, nontender, no guarding; Ostomy bag present; No masses or hepatosplenomegaly MSK: ROM intact, no joint swelling noted Extremities: no BLE edema, nontender calf, no cyanosis or clubbing Skin: Normal temperature, dry skin with good turgor; no rash, ulcers or subcutaneous nodules Neuro: Tardive dyskinesia movement of mouth present, moves all extremities - Assessment and Plan (1) A-fib Current Visit: No Status: Chronic Assessment and Plan: Second episode of AFib with RVR over night after IV cardizem was discontinued. Patient is otherwise asymptomatic without any chest pain, palpitations, nausea, vomiting, lightheadedness, dizziness. Cardiology consulted for titration of rate control. -Per Cardiology, Continue cardizem CD 240 mg PO; Start cardizem 10 mg/h titrated off over 8 hours; Start digoxin 0.5 mg IV once then 0.25 mg IV q6H twice -Continue metoprolol 50 mg BID PO -Continue Xarelto 20 mg QD PO -Monitor BP and HR response for any symptomatic development (2) Hyponatremia Current Visit: Yes Status: Acute Assessment and Plan: Na increase to 134. Continue oral intake; no IVF required. Nephro has signed- off; recommended BMP one week post-discharge and follow-up with Dr. Jimenez in four weeks. -Continue steroid taper of Solu-Cortef 50mg IV q12H. -Continue oral intake of fluids and regular meals. -Monitor Na with daily CMP. (3) CAD (coronary artery disease) Current Visit: No Status: Chronic Assessment and Plan: History of coronary artery disease. -Continue home medication of simvastatin 40 mg PO QD. (4) COPD (chronic obstructive pulmonary disease) Current Visit: No Status: Chronic Assessment and Plan: No acute exacerbation. -Continue oxygen NC 2L and home symbicort. (5) Hypertension Current Visit: No Status: Chronic Assessment and Plan: History of hypertension controlled with Norvasc at home. BP is being monitored carefully as treatment for Afib with RVR has been increased due to recent episode; will continue to titrate but avoid hypotension. -Monitor BP, if trending upward may need to resume home meds (6) Hypomagnesemia Current Visit: Yes Status: Resolved Assessment and Plan: Mg of 1.9 s/p IV Mg. -Resolved (7) Hyperkalemia Current Visit: Yes Status: Resolved Assessment and Plan: K now 4.4 post IV repletion. Will continue to monitor given episodes of Afib with RVR. -Plan as above in Hyponatremia DVT Prophylaxis: Decreased mobility limited due to Afib with RVR and relatively low activity overall. -On anticoagulation as plan above in Afib. - Time Spent with Patient Total time spent is greater than 50% in coordination of care (as documented) at patient's floor/unit and/or counseling patient: Internal Medicine: Result - Labs CBC & Chem 7: 07/20/18 04:28 07/20/18 04:28 Labs: Short CBC 07/20/18 Range/Units 04:28 WBC 10.2 (4.3-11.1) K/mcL Hgb 9.8 L (11.5-15.4) g/dL Hct 30.0 L (35.3-44.9) % Plt Count 173 (140-400) K/mcL Neutrophils # 9.0 H (1.6-8.9) K/mcL BMP 07/20/18 04:28 Sodium 134 L Potassium 4.4 Chloride 106 Carbon Dioxide 23 BUN 21 Creatinine 0.94 Glucose 161 H Calcium 8.9 - ABG Interpretation ABG results: ABG ABG pH 7.36 pH Units (7.32-7.45) 07/14/18 16:59 ABG pCO2 38 mmHg (35-45) 07/14/18 16:59 ABG pO2 90 mmHg (85-104) 07/14/18 16:59 ABG O2 Saturation 97 % (95-98) 07/14/18 16:59 Consult Discharge Plan - Plan Referrals: Jamil Reece MD [Primary Care Provider] - (1) A-fib Qualifiers: Atrial fibrillation type: unspecified Qualified Code(s): I48.91 - Unspecified atrial fibrillation (3) CAD (coronary artery disease) Qualifiers: Coronary Disease-Associated Artery/Lesion type: unspecified vessel or lesion type [place] vs. transplanted heart: [place] heart Associated angina: without angina Qualified Code(s): I25.10 - Atherosclerotic heart disease of [place] coronary artery without angina pectoris (4) COPD (chronic obstructive pulmonary disease) Qualifiers: COPD type: unspecified COPD Qualified Code(s): J44.9 - Chronic obstructive pulmonary disease, unspecified (5) Hypertension Qualifiers: Hypertension type: essential hypertension Qualified Code(s): I10 - Essential (primary) hypertension
--- NOTE | 2018-07-20 10:43 | Cardiology Progress Note ---
Date of Encounter: 07/20/18 Time of Encounter: 09:30 Assessment and Plan (1) Hyponatremia Current Visit: Yes Status: Acute Per cardiology: -Admitted with hyponatremia. -Management per primary and nephrology services. (2) Hyperkalemia Current Visit: Yes Status: Resolved Per cardiology: -Hyperkalemic on admission, now resolved. -Management per primary service. (3) PAF (paroxysmal atrial fibrillation) Current Visit: Yes Status: Chronic Per cardiology: -Known PAF, on BB and xarelto at home. -on cardizem drip at 7.5mg/hour. lopressor 50mg BID. -Average HR 114, a.fib. -Last TTE 11/2017 with LVEF 55-60%. -BP marginal 90-100s systolic. -Discussed and reviewed with , with marginal BPs and normal renal function, will give IV digoxin load today. -Will continue to monitor Discussion w patient/family: The assessment and plan as outlined above was discussed with the patient who expressed understanding and agreement. All questions were answered. Thank you for involving us in the care of your patient. Please call with any questions. Discussed and reviewed with . Subjective Principal diagnosis: hyponatremia, hyperkalemia Interval history: Patient reports she feels great today. Denies complaints. Patient states she just wants to be ready to go home. Objective Vital Signs, Last 4 Hours Temp Pulse BP 07/20/18 09:00 84 107/64 07/20/18 07:26 98.3 F 89 97/65 General: Conversant, No Apparent Distress HEENT: Atraumatic, Normocephaly, Mucus Membranes Moist Neck: No JVD, Normal carotid pulses Cardiac: Normal S1 and S2, No Murmur, Other (Irregularly irregular ) Lungs: Normal Breath Sounds, No Wheeze, Rales, Rhonchi Neuro: Alert and responsive, No focal deficits noted Abdomen: Soft, Non-Tender Skin: No rashes noted on visualized skin Musculoskeletal: No Chest Wall Tenderness Extremities: No Clubbing, No Cyanosis, No Edema, Normal Pulses Results 07/20/18 04:28 07/20/18 04:28 Lab Results Active Medications Amitriptyline HCl (Elavil) 50 mg PO HS [facility] Stop: 01/13/19 21:01 Last Admin: 07/19/18 21:29 Dose: 50 mg Bethanechol Chloride (Urecholine) 50 mg PO BID [facility] Stop: 01/13/19 09:01 Last Admin: 07/20/18 07:49 Dose: 50 mg Budesonide/Formoterol Fumarate (Symbicort) 2 puff IH BIDR [facility]; Protocol Stop: 01/13/19 10:01 Last Admin: 07/20/18 07:49 Dose: 2 puff Clonazepam (Klonopin) 0.5 mg PO HS [facility] Stop: 01/13/19 21:01 Last Admin: 07/19/18 21:30 Dose: 0.5 mg Cyclobenzaprine HCl (Flexeril) 10 mg PO BID [facility] Stop: 01/13/19 21:01 Last Admin: 07/20/18 07:49 Dose: 10 mg Digoxin (Lanoxin) 0.25 mg IVP Q6H [facility] Stop: 07/20/18 21:31 Diltiazem HCl (Cardizem Cd) 240 mg PO DAILY [facility] Stop: 01/18/19 09:01 Last Admin: 07/19/18 09:37 Dose: 240 mg Ferrous Sulfate (Ferrous Sulfate) 325 mg PO DAILY [facility]; Protocol Stop: 01/14/19 09:01 Last Admin: 07/20/18 07:49 Dose: 325 mg Fluticasone Propionate (Flonase) 50 mcg NS DAILY [facility]; Protocol Stop: 01/13/19 09:01 Last Admin: 07/20/18 07:50 Dose: 50 mcg Hydrocortisone Sodium Succinate (Solu-Cortef) 50 mg IVP BID [facility] Stop: 01/18/19 09:01 Last Admin: 07/20/18 07:49 Dose: 50 mg Diltiazem HCl 50 mg/ Sodium (Chloride) 50 mls @ 2.5 mls/hr IVC .Q20H [facility]; Protocol Stop: 01/16/19 06:46 Last Infusion: 07/20/18 09:01 Dose: 7.5 mg/hr, 7.5 mls/hr Magnesium Oxide (Mag-Ox) 400 mg PO DAILY [facility] Stop: 01/15/19 09:01 Last Admin: 07/20/18 07:49 Dose: 400 mg Metoprolol Tartrate (Lopressor) 50 mg PO BID [facility] Stop: 01/17/19 21:01 Last Admin: 07/20/18 07:49 Dose: 50 mg Metoprolol Tartrate (Lopressor) 5 mg IVP Q10MIN [facility] Stop: 07/21/18 22:46 Last Admin: 07/19/18 23:27 Dose: 5 mg Naloxone HCl (Narcan) 0.4 mg IVP Q2MIN PRN PRN Reason: SEE COMMENTS Stop: 01/12/19 22:03 Nystatin (Mycostatin Suspension) 5 ml PO QID [facility] Stop: 01/14/19 09:01 Last Admin: 07/20/18 07:49 Dose: 5 ml Omeprazole (Prilosec) 40 mg PO DAILY [facility] Stop: 01/13/19 09:01 Last Admin: 07/20/18 07:50 Dose: 40 mg Pharmacy Profile Note (Patient Taking Own Medication) 4 each PO DAILY [facility] Stop: 01/13/19 09:01 Last Admin: 07/20/18 07:50 Dose: Not Given Primidone (Mysoline) 50 mg PO BID [facility] Stop: 01/13/19 09:01 Last Admin: 07/20/18 07:49 Dose: 50 mg Prochlorperazine Maleate (Compazine) 10 mg PO Q4H PRN PRN Reason: Nausea Stop: 01/16/19 08:16 Rivaroxaban (Xarelto) 20 mg PO DAILY [facility] Stop: 01/13/19 09:01 Last Admin: 07/20/18 07:49 Dose: 20 mg Ropinirole HCl (Requip) 3 mg PO HS [facility] Stop: 01/13/19 21:01 Last Admin: 07/19/18 21:30 Dose: 3 mg Ropinirole HCl (Requip) 2 mg PO [facility] Stop: 01/16/19 21:01 Last Admin: 07/19/18 21:30 Dose: 2 mg Simvastatin (Zocor) 40 mg PO HS [facility]; Protocol Stop: 01/13/19 21:01 Last Admin: 07/19/18 21:30 Dose: 40 mg Laboratory Tests 07/20/18 07/20/18 04:28 04:28 Hgb 9.8 L Potassium 4.4 Creatinine 0.94 Magnesium 1.9 - Imaging and Cardiology Echo: report reviewed - EKG Interpretation EKG results cardiology: other (Telemetry reviewed with average HR previous 12 hours noted to be 114, a.fib. PVCs noted.) Consult Discharge Plan - Plan Referrals: Jamil Reece MD [Primary Care Provider] -
[2018-07-20] MEDS: Diltiazem CD (24hr) 240 MG CAPSULE PO SCH (11:32)
--- NOTE | 2018-07-20 14:33 | Electrocardiograph Report ---
[address] [place], [place] [address] Test Date: 2018-07-17 Pat Name: Jessica Brunson Department: 111 Room: 2NE23 Gender: F Director Of Rehabilitation And Wellness: : 1935 Requested By: Manny Iglesias Order Number: [id number] Reading MD: Na Li Measurements Intervals [place] Rate: 103 P: NV: 0 QRS: -11 QRSD: 108 T: 79 QT: 316 QTc: 376 Interpretive Statements ATRIAL FIBRILLATION WITH RAPID VENTRICULAR RESPONSE MODERATE VOLTAGE CRITERIA FOR LVH, CONSIDER NORMAL VARIANT NONSPECIFIC T-WAVE ABNORMALITY Electronically Signed On 07-20-2018 14:31:38 EST by Na Li
[2018-07-20] MEDS: *HR* Digoxin 0.5 MG/2 ML AMPUL IVP SCH ×2 (15:19→20:38)
[2018-07-20] MEDS: clonazePAM 0.5 MG TABLET PO SCH (20:36)
[2018-07-20] MEDS: rOPINIRole 1 MG TABLET PO SCH (20:37)
--- NOTE | 2018-07-20 20:43 | Electrocardiograph Report ---
[address] [place], [place] [address] Test Date: 2018-07-17 Pat Name: Jessica Brunson Department: 111 Room: 2NE23 Gender: F Field Rep: CAT : 1935 Requested By: Manny Iglesias Order Number: [id number] Reading MD: Na Li Measurements Intervals [place] Rate: 134 P: DC: 0 QRS: -7 QRSD: 96 T: 118 QT: 268 QTc: 347 Interpretive Statements ATRIAL FIBRILLATION WITH RAPID VENTRICULAR RESPONSE ST-T-WAVE ABNORMALITY, CONSIDER ISCHEMIA Electronically Signed On 07-20-2018 20:42:18 EST by Na Li
[2018-07-21 06:02] LABS: Hemoglobin 9.5 g/dL (11.5-15.4); Lymphocytes # 0.6 K/mcL (0.6-4.6); Mean Corpuscular HGB Conc 31.7 g/dL (31.6-35.5); Mean Corpuscular Hemoglobin 29.4 pg (28.0-33.3); Mean Corpuscular Volume 92.9 fL (83.0-100.0); Mean Platelet Volume 9.7 fL (9.4-12.4); Platelet Count 175 K/mcL (140-400); Red Blood Count 3.23 M/mcL (3.82-4.97); Red Cell Distribution Width 13.7 % (11.5-14.5)
[2018-07-21 06:17] LABS: BUN/Creatinine Ratio 26 (6-26); Blood Urea Nitrogen 22 mg/dL (8-23); Calcium 8.9 mg/dL (8.6-10.3); Carbon Dioxide 23 mEq/L (23-29); Chloride 105 mEq/L (98-107); Glucose 150 mg/dL (70-105); Osmolality,Calculated 280 (280-300); Potassium 4.1 mEq/L (3.5-5.1); Sodium 132 mEq/L (136-145); eGFR For Non-African Americans > 60 (> 60)
[2018-07-21 07:12] LABS: Monocytes # 0.1 K/mcL (0.0-1.3); Neutrophils # 8.5 K/mcL (1.6-8.9); Platelet Estimate Normal (Normal)
[2018-07-21] MEDS: Diltiazem CD (24hr) 240 MG CAPSULE PO SCH (08:42)
[2018-07-21] MEDS: *HR* Rivaroxaban 10 MG TABLET PO SCH (08:43)
[2018-07-21] MEDS: Primidone 50 MG TABLET PO SCH (08:43)
[2018-07-21] MEDS: Hydrocortisone Sodium Succ 100 MG/2 ML VIAL IVP SCH (08:45)
[2018-07-21] MEDS: Nystatin SUSP 5 ML UD.LIQ PO SCH ×2 (08:45→12:35)
[2018-07-21] MEDS: Fluticasone Propionate Nasal 50 MCG/SPRAY BOTTLE NS SCH (08:52)
[2018-07-21] MEDS: (Bifidobacterium Infantis [Align] 4 MG) PO SCH (08:52)
[2018-07-21] MEDS ORDERED: Magnesium Oxide 400 MG TABLET PO SCH (09:00)
[2018-07-21 09:14] VITALS: BP 125/79
--- NOTE | 2018-07-21 09:29 | Event Note ---
Date of Encounter: 07/21/18 Time of Encounter: 09:26 She was seen and examined. I agree with the progress note as written by the resident physician. Patient was admitted initially with abnormal labs including hyponatremia and hyperkalemia. Sodium was 118 on admission. Potassium was 5.9. All of those seem to have corrected with gentle hydration. Nephrology was following along. While she is here she was evaluated by oncology for history of follicular lymphoma for which she was due for cycle #4. She has a history of paroxysmal A. fib and has went into A. fib with RVR couple times and converted with IV Cardizem including the drip. Yesterday loaded with dig and remains in afib but rate is much better 90-110. Otherwise patient is feeling well. GEN: NAD CVS: Irregular. S1, S2, No m/r/g RESP: CTAB ABD: Soft, NT, ND, +BS EXT: No edema. 2+ DP. No rashes NEURO: Nonfocal Loaded with digoxin. HR 90-110. Will only dc if ok with cardiology. Will be in contact with them. The patient is on lopressor as well On Xarelto for anticoagulation Electrolytes acceptable We will need to switch her to a hydrocortisone taper at d/c Continue the rest of her medications from home Labs in the morning if still here Follow-up with Dr. Jimenez in 4 weeks or so.
[2018-07-21] MEDS: Budesonide/Formoterol 160/4.5 1 PUFF INH IH SCH (10:52)
--- NOTE | 2018-07-21 12:43 | Cardiology Progress Note ---
Date of Encounter: 07/21/18 Time of Encounter: 12:40 Assessment and Plan (1) PAF (paroxysmal atrial fibrillation) Current Visit: Yes Status: Chronic Per cardiology: -Known PAF, on BB and xarelto at home. Status post digoxin load. Now off IV Cardizem drip. Now taking Lopressor 50 mg by mouth twice a day, Cardizem CD 240 mg by mouth daily. Average heart rate the past 12 hours on telemetry 101, currently A. fib in the 70s to 80s. Last TTE 11/2017 with LVEF 55-60%. Regarding long-term anticoagulation, on Xarelto at home. Denies any active bleeding or blood loss. Cardiology signing off, reconsult as needed, follow-up arranged. Anticipate discharge home today. Discussion w patient/family: The assessment and plan as outlined above was discussed with the patient and/or family members who expressed understanding and agreement. All questions were answered. Thank you for involving us in the care of your patient. Please call with any questions. Subjective Principal diagnosis: hyponatremia, hyperkalemia Interval history: Patient seen today up in the chair. Reports dramatic improvement in overall status during hospital stay. She denies any chest pain, palpitations, reports short of breath has improved. Denies any active bleeding or blood loss. Objective Vital Signs, Last 4 Hours Pulse Resp BP Pulse Ox 07/21/18 10:53 14 95 07/21/18 09:04 116 125/79 General: Conversant, No Apparent Distress HEENT: Atraumatic, Normocephaly, Mucus Membranes Moist Neck: No JVD, Normal carotid pulses Cardiac: No Murmur, Other (Irregularly irregular) Lungs: Normal Breath Sounds, No Wheeze, Rales, Rhonchi Neuro: Alert and responsive, No focal deficits noted Abdomen: Soft, Non-Tender Skin: No rashes noted on visualized skin Musculoskeletal: No Chest Wall Tenderness Extremities: No Clubbing, No Cyanosis, Normal Pulses, Other (Trace nonpitting bilateral lower extremity edema) Results 07/21/18 05:30 07/21/18 05:30 Lab Results Laboratory Tests 07/21/18 07/21/18 07/21/18 05:30 05:30 05:30 Hgb 9.5 L Hct 30.0 L Creatinine 0.86 Est GFR (Non-Af Amer) > 60 Magnesium 1.7 Active Medications Amitriptyline HCl (Elavil) 50 mg PO HS [facility] Stop: 01/13/19 21:01 Last Admin: 07/20/18 20:36 Dose: 50 mg Bethanechol Chloride (Urecholine) 50 mg PO BID [facility] Stop: 01/13/19 09:01 Last Admin: 07/21/18 08:42 Dose: 50 mg Budesonide/Formoterol Fumarate (Symbicort) 2 puff IH BIDR [facility]; Protocol Stop: 01/13/19 10:01 Last Admin: 07/21/18 10:52 Dose: 2 puff Clonazepam (Klonopin) 0.5 mg PO HS [facility] Stop: 01/13/19 21:01 Last Admin: 07/20/18 20:36 Dose: 0.5 mg Cyclobenzaprine HCl (Flexeril) 10 mg PO BID [facility] Stop: 01/13/19 21:01 Last Admin: 07/21/18 08:42 Dose: 10 mg Diltiazem HCl (Cardizem Cd) 240 mg PO DAILY [facility] Stop: 01/18/19 09:01 Last Admin: 07/21/18 08:42 Dose: 240 mg Ferrous Sulfate (Ferrous Sulfate) 325 mg PO DAILY [facility]; Protocol Stop: 01/14/19 09:01 Last Admin: 07/21/18 08:43 Dose: 325 mg Fluticasone Propionate (Flonase) 50 mcg NS DAILY [facility]; Protocol Stop: 01/13/19 09:01 Last Admin: 07/21/18 08:52 Dose: 50 mcg Hydrocortisone (Cortef) 50 mg PO DAILY [facility]; Taper Stop: 08/01/18 08:59 Diltiazem HCl 50 mg/ Sodium (Chloride) 50 mls @ 2.5 mls/hr IVC .Q20H [facility]; Protocol Stop: 01/16/19 06:46 Last Infusion: 07/20/18 15:22 Dose: 0 mg/hr, 0 mls/hr Magnesium Oxide (Mag-Ox) 400 mg PO BID [facility] Stop: 01/20/19 09:01 Last Admin: 07/21/18 12:35 Dose: 400 mg Metoprolol Tartrate (Lopressor) 50 mg PO BID [facility] Stop: 01/17/19 21:01 Last Admin: 07/21/18 08:43 Dose: 50 mg Metoprolol Tartrate (Lopressor) 5 mg IVP Q10MIN [facility] Stop: 07/21/18 22:46 Last Admin: 07/19/18 23:27 Dose: 5 mg Naloxone HCl (Narcan) 0.4 mg IVP Q2MIN PRN PRN Reason: SEE COMMENTS Stop: 01/12/19 22:03 Nystatin (Mycostatin Suspension) 5 ml PO QID [facility] Stop: 01/14/19 09:01 Last Admin: 07/21/18 12:35 Dose: 5 ml Omeprazole (Prilosec) 40 mg PO DAILY [facility] Stop: 01/13/19 09:01 Last Admin: 07/21/18 08:42 Dose: 40 mg Pharmacy Profile Note (Patient Taking Own Medication) 4 each PO DAILY [facility] Stop: 01/13/19 09:01 Last Admin: 07/21/18 08:52 Dose: Not Given Primidone (Mysoline) 50 mg PO BID [facility] Stop: 01/13/19 09:01 Last Admin: 07/21/18 08:43 Dose: 50 mg Prochlorperazine Maleate (Compazine) 10 mg PO Q4H PRN PRN Reason: Nausea Stop: 01/16/19 08:16 Rivaroxaban (Xarelto) 20 mg PO DAILY [facility] Stop: 01/13/19 09:01 Last Admin: 07/21/18 08:43 Dose: 20 mg Ropinirole HCl (Requip) 3 mg PO HS [facility] Stop: 01/13/19 21:01 Last Admin: 07/20/18 20:36 Dose: 3 mg Ropinirole HCl (Requip) 2 mg PO HS [facility] Stop: 01/16/19 21:01 Last Admin: 07/20/18 20:37 Dose: 2 mg Simvastatin (Zocor) 40 mg PO HS [facility]; Protocol Stop: 01/13/19 21:01 Last Admin: 07/20/18 20:36 Dose: 40 mg - EKG Interpretation EKG results cardiology: other (afib on tele) Consult Discharge Plan - Plan Referrals: Jamil Reece MD [Primary Care Provider] -
--- NOTE | 2018-07-21 13:45 | Discharge Summary ---
<Salas Jensen - Last Filed: 07/21/18 20:18> - NOTES TO OUTPATIENT PROVIDER Notes to Outpatient Provider: Ms. Brunson was admitted on 07/13 for hyponatremia (Na 118) and hyperkalemia (K 5.9). She denied any chest pain or palpitations at the time and had no focal neuro deficits or AMS. She was given IV fluids with the assistance of nephrology. She was given stress dose steroids for presumed adrenal insufficiency and electrolyte abnormalities responded well. Cardiology was consulted for Afib RVR management. Pt required Cardizem drip along with a loading dose of Digoxin when transitioning to po medications. Pt to complete a 10 day steroid taper upon discharge and follow up with nephrology in 4 weeks. Per Cardiology, pt started on Cardizem 240mg daily and Metoprolol was decreased to 50mg BID. Date of Encounter: 07/21/18 Time of Encounter: 10:00 - Discharge Diagnosis (1) Hyponatremia Priority: Primary Status: Acute Assessment and Plan: Moderate to severe hyponatremia of 114 assessed on outpatient lab work prior to admission. Improved with IV fluids and stress dose hydrocortisone Resolved at time of discharge. To follow up with nephrology in 4 weeks (2) COPD (chronic obstructive pulmonary disease) Priority: Secondary Status: Chronic Assessment and Plan: History of COPD on 2 L nasal cannula at night. No evidence of an acute exacerbation. Continue home inhalers Qualifiers: COPD type: unspecified COPD Qualified Code(s): J44.9 - Chronic obstructive pulmonary disease, unspecified (3) CAD (coronary artery disease) Priority: Secondary Status: Chronic Assessment and Plan: Continue Zocor Qualifiers: Coronary Disease-Associated Artery/Lesion type: unspecified vessel or lesion type [place] vs. transplanted heart: [place] heart Associated angina: without angina Qualified Code(s): I25.10 - Atherosclerotic heart disease of [place] coronary artery without angina pectoris (4) A-fib Priority: Secondary Status: Chronic Assessment and Plan: Per cardiology: Continue Xarelto Cardizem 240mg daily Metoprolol 50mg BID Qualifiers: Atrial fibrillation type: unspecified Qualified Code(s): I48.91 - Unspecified atrial fibrillation (5) Hyperkalemia Priority: Primary Status: Resolved Assessment and Plan: Resolved. Hospital course: Ms. Brunson is a 83 year old female with PMH of afib, stroke, HTN, COPD, and CAD. She was admitted on 07/13 for hyponatremia (Na 118) and hyperkalemia (K 5.9). She denied any chest pain or palpitations at the time and had no focal neuro deficits or AMS. EKG did not show peaked T waves. She was given IV fluids with the assistance of nephrology. When electrolyte abnormalities did not improve as expected, she was given stress dose steroids for presumed adrenal insufficiency. Hyponaturemia and hyperkalemia responded well. Cardiology was consulted for Afib RVR management. Pt required Cardizem drip along with a loading dose of Digoxin when transitioning to po medications. Pt to complete a 10 day steroid taper upon discharge and follow up with nephrology in 4 weeks. Per Cardiology, pt started on Cardizem 240mg daily and Metoprolol was decreased to 50mg BID. Discharge discussed with: patient, nurse, senior internet sales consultant - Time Spent with Patient Total time spent providing and/or coordinating discharge services: - Discharge Medications Prescriptions: RX: Diltiazem CD (24hr) [Cardizem CD] 240 mg PO DAILY 30 Days #30 cap.er.24h RX: Hydrocortisone [Cortef] See Taper PO DAILY 10 Days #30 tablet RX: Magnesium Oxide [Mag-Ox] 400 mg PO BID 30 Days #60 tablet RX: Metoprolol [Lopressor] 50 mg PO BID 30 Days #60 tablet Home Medications: RX: Budesonide/Formoterol 160/4.5 [Symbicort 160/4.5] 2 puff IH BID PRN 11/13/15 [History] RX: Ergocalciferol (VITAMIN D2) [Vitamin D2] 2,000 unit PO DAILY 11/13/15 [History] RX: Primidone [Mysoline] 100 mg PO HS 11/13/15 [History] RX: Ropinirole HCl [Requip] 5 mg PO HS 11/13/15 [History] RX: Simvastatin [Zocor] 40 mg PO HS 11/13/15 [History] RX: Amitriptyline HCl 50 mg PO DAILY 05/01/17 [History] RX: clonazePAM [Klonopin] 0.5 mg PO HS #5 tablet 05/05/17 [Rx] RX: Pantoprazole Sodium [Protonix] 40 mg PO DAILY 11/06/17 [History] RX: Rivaroxaban [Xarelto] 20 mg PO DAILY 03/09/18 [History] RX: Bethanechol [Urecholine] 50 mg PO BID 03/23/18 [History] RX: Bifidobacterium Infantis [Align] 4 mg PO DAILY 03/23/18 [History] RX: Cranberry 500 mg PO BID 03/23/18 [History] RX: Cyanocobalamin (Vitamin B-12) [Vitamin B-12] 1,000 mcg PO DAILY 03/23/18 [History] RX: Fluticasone Propionate Nasal [Flonase] 2 spray NS QAM 03/23/18 [History] RX: Omeprazole [PriLOSEC] 40 mg PO BID 03/23/18 [History] RX: Albuterol Sulfate [Proair Hfa] 1 puff IH Q6H PRN 06/01/18 [History] RX: Ferrous Sulfate [Iron] 325 mg PO DAILY 06/01/18 [History] RX: Ipratropium/Albuterol Neb [Duoneb] 3 ml IH Q6HR PRN 06/01/18 [History] RX: Cyclobenzaprine [Flexeril] 10 mg PO BID PRN 06/15/18 [History] RX: Ondansetron HCl 4 mg PO Q4H PRN 07/15/18 [History] RX: Oxybutynin [Ditropan] 5 mg PO BID 07/15/18 [History] RX: Prochlorperazine Maleate [Compazine] 10 mg PO Q4H PRN 07/15/18 [History] RX: Diltiazem CD (24hr) [Cardizem CD] 240 mg PO DAILY 30 Days #30 cap.er.24h 07/21/18 [Rx] RX: Hydrocortisone [Cortef] See Taper PO DAILY 10 Days #30 tablet 07/21/18 [Rx] RX: Magnesium Oxide [Mag-Ox] 400 mg PO BID 30 Days #60 tablet 07/21/18 [Rx] RX: Metoprolol [Lopressor] 50 mg PO BID 30 Days #60 tablet 07/21/18 [Rx] Allergies/Adverse Reactions: Allergy/AdvReac Type Severity Reaction Status Date / Time morphine Allergy Fainting Verified 07/15/18 14:55 propoxyphene [From Darvon] Allergy Fainting Verified 07/15/18 14:55 aspirin [ASA] AdvReac See Verified 07/15/18 14:55 Comments codeine AdvReac Fainting Verified 07/15/18 14:55 gabapentin AdvReac Nausea Verified 07/15/18 14:55 Iodinated Contrast- Oral and AdvReac "knocked Verified 07/15/18 14:55 IV Dye out" [Iodinated Contrast Media - IV Dye] pentazocine [From Talwin] AdvReac Fainting Verified 07/15/18 14:55 Sulfa (Sulfonamide AdvReac Nausea Verified 07/15/18 14:55 Antibiotics) catgut Allergy See Uncoded 07/15/18 14:55 Comments Date of admission: 07/14/18 16:01 Primary care physician: Jamil Reece MD Consults: 07/13/18 22:37 Consult to Nephrology [CONS] Routine Consulting Provider: Kidney Merry/ELDA/MILTON/JORDY Reason for Consult: Hyponatremia Call Completed: Yes 07/14/18 15:09 Consult to Physical Therapy [CONS] Routine Comment: Evaluate, develop and implement POC Reason for Consult: deconditioning Does patient have active BEDREST order?: No Is patient medically & hemodynamically stable?: Yes 07/17/18 08:13 Consult to Cardiology [CONS] Routine Comment: Consulting Provider: Cardiology Merry Reason for Consult: afib rvr Call Completed: No 07/18/18 15:25 Consult to Oncology [CONS] Routine Consulting Provider: [facility] [place] Reason for Consult: lymphoma Call Completed: No Discharging clinician: Salas Jensen - Constitutional Vitals: Temp Pulse Resp BP Pulse Ox 97.8 F 116 14 125/79 95 07/21/18 07:02 07/21/18 09:04 07/21/18 10:53 07/21/18 09:04 07/21/18 10:53 General appearance: Present: cooperative, A&O X 3, pleasant, no acute distress, answers questions appropriately Exam: General: well developed elderly female in no acute distress Head: normocephalic and atraumatic Eyes: PERRL, EOMI, sclera anicteric, conjunctiva pink Neck: supple, trachea midline Lungs: CTA bilaterally. non-labored breathing on 2lpm O2 via NC Heart: Tachycardic. Irregularly irregular rhythm. +s1 +s2 No murmurs, clicks, or rubs GI: abdomen soft, non-tender, non-distended. normoactive bowel sounds Extremities: warm, peripheral pulses palpable and symmetrical. no cyanosis or edema Neuro: A&Ox3. no focal deficits. no speech difficulty or abnormality Skin: warm, dry, intact - Patient Status Disposition: Home, Self-Care Condition: Fair Functional capacity at discharge: uses cane/walker Overall status at discharge: patient is back to baseline - Discharge Instructions Instructions: Metoprolol (By mouth), Diltiazem (By mouth), Hydrocortisone (By mouth), Magnesium (By mouth), Atrial Fibrillation (DC), Chronic Obstructive Pulmonary Disease (DC), Chronic Hypertension (DC) Follow Up With: Jamil Reece MD [Primary Care Provider] - - Diet and Activity Activity: increase activity as tolerated, resume usual activities as tolerated Diet: low fat, low cholesterol <Dane Yancey - Last Filed: 07/22/18 11:58> Date of Encounter: 07/22/18 - Discharge Diagnosis (1) COPD (chronic obstructive pulmonary disease) Status: Chronic Qualifiers: COPD type: unspecified COPD Qualified Code(s): J44.9 - Chronic obstructive pulmonary disease, unspecified (2) CAD (coronary artery disease) Status: Chronic Qualifiers: Coronary Disease-Associated Artery/Lesion type: unspecified vessel or lesion type [place] vs. transplanted heart: [place] heart Associated angina: without angina Qualified Code(s): I25.10 - Atherosclerotic heart disease of [place] coronary artery without angina pectoris (3) A-fib Status: Chronic Qualifiers: Atrial fibrillation type: unspecified Qualified Code(s): I48.91 - Unspecified atrial fibrillation (4) Hyponatremia Status: Acute (5) Hyperkalemia Status: Resolved Hospital course: Ms. Brunson is a 83 year old female - Time Spent with Patient Total time spent providing and/or coordinating discharge services: Greater than 30 minutes Date of admission: 07/14/18 16:01 Primary care physician: Jamil Reece MD Consults: 07/13/18 22:37 Consult to Nephrology [CONS] Routine Consulting Provider: [facility] Merry/ELDA/MILTON/JORDY Reason for Consult: Hyponatremia Call Completed: Yes 07/14/18 15:09 Consult to Physical Therapy [CONS] Routine Comment: Evaluate, develop and implement POC Reason for Consult: deconditioning Does patient have active BEDREST order?: No Is patient medically & hemodynamically stable?: Yes 07/17/18 08:13 Consult to Cardiology [CONS] Routine Comment: Consulting Provider: Cardiology Merry Reason for Consult: afib rvr Call Completed: No 07/18/18 15:25 Consult to Oncology [CONS] Routine Consulting Provider: [facility] Reason for Consult: lymphoma Call Completed: No - Constitutional Vitals: Temp Pulse Resp BP Pulse Ox 97.8 F 116 14 125/79 95 07/21/18 07:02 07/21/18 09:04 07/21/18 10:53 07/21/18 09:04 07/21/18 10:53 - Attending Attestation I examined this patient and my medical decision-making was reviewed with the Resident Physician. I agree with the documented discharge as above. GEN: NAD CVS: RRR. S1, S2, No m/r/g RESP: CTAB ABD: Soft, NT, ND, +BS EXT: No edema. 2+ DP. No rashes NEURO: Nonfocal
--- NOTE | 2018-07-21 15:32 | Physician Discharge Referral ---
Home Health/Hosp Referral Info Transfer to: Home Health Provider in Charge Post Discharge: PCP - Diagnosis (1) Hyponatremia Priority: Primary Status: Acute (2) Hyperkalemia Priority: Primary Status: Resolved (3) COPD (chronic obstructive pulmonary disease) Priority: Secondary Status: Chronic (4) CAD (coronary artery disease) Priority: Secondary Status: Chronic (5) A-fib Priority: Secondary Status: Chronic - Respiratory Orders Smoking Cessation: Smoking cessation has been advised. For more information, call the [place] Tobacco Quit Line at 9-189-UMGR-NOW. - Diet/Nutrition Diet/Nutrition Orders: Cardiac (liberalize salt) - Activity Activity Orders: Walker - Services Needed Following services are medically necessary services: Nursing, Home Health Aide, Physical Therapy, Occupational Therapy - Transfer Medications Prescriptions: Diltiazem CD (24hr) [Cardizem CD] 240 mg PO DAILY 30 Days #30 cap.er.24h Hydrocortisone [Cortef] See Taper PO DAILY 10 Days #30 tablet Magnesium Oxide [Mag-Ox] 400 mg PO BID 30 Days #60 tablet Metoprolol [Lopressor] 50 mg PO BID 30 Days #60 tablet Home Medications: Budesonide/Formoterol 160/4.5 [Symbicort 160/4.5] 2 puff IH BID PRN 11/13/15 [History] Ergocalciferol (VITAMIN D2) [Vitamin D2] 2,000 unit PO DAILY 11/13/15 [History] Primidone [Mysoline] 100 mg PO HS 11/13/15 [History] Ropinirole HCl [Requip] 5 mg PO HS 11/13/15 [History] Simvastatin [Zocor] 40 mg PO HS 11/13/15 [History] Amitriptyline HCl 50 mg PO DAILY 05/01/17 [History] clonazePAM [Klonopin] 0.5 mg PO HS #5 tablet 05/05/17 [Rx] Pantoprazole Sodium [Protonix] 40 mg PO DAILY 11/06/17 [History] Rivaroxaban [Xarelto] 20 mg PO DAILY 03/09/18 [History] Bethanechol [Urecholine] 50 mg PO BID 03/23/18 [History] Bifidobacterium Infantis [Align] 4 mg PO DAILY 03/23/18 [History] Cranberry 500 mg PO BID 03/23/18 [History] Cyanocobalamin (Vitamin B-12) [Vitamin B-12] 1,000 mcg PO DAILY 03/23/18 [History] Fluticasone Propionate Nasal [Flonase] 2 spray NS QAM 03/23/18 [History] Omeprazole [PriLOSEC] 40 mg PO BID 03/23/18 [History] Albuterol Sulfate [Proair Hfa] 1 puff IH Q6H PRN 06/01/18 [History] Ferrous Sulfate [Iron] 325 mg PO DAILY 06/01/18 [History] Ipratropium/Albuterol Neb [Duoneb] 3 ml IH Q6HR PRN 06/01/18 [History] Cyclobenzaprine [Flexeril] 10 mg PO BID PRN 06/15/18 [History] Ondansetron HCl 4 mg PO Q4H PRN 07/15/18 [History] Oxybutynin [Ditropan] 5 mg PO BID 07/15/18 [History] Prochlorperazine Maleate [Compazine] 10 mg PO Q4H PRN 07/15/18 [History] Diltiazem CD (24hr) [Cardizem CD] 240 mg PO DAILY 30 Days #30 cap.er.24h 07/21/18 [Rx] Hydrocortisone [Cortef] See Taper PO DAILY 10 Days #30 tablet 07/21/18 [Rx] Magnesium Oxide [Mag-Ox] 400 mg PO BID 30 Days #60 tablet 07/21/18 [Rx] Metoprolol [Lopressor] 50 mg PO BID 30 Days #60 tablet 07/21/18 [Rx] Allergies/Adverse Reactions: Allergy/AdvReac Type Severity Reaction Status Date / Time morphine Allergy Fainting Verified 07/15/18 14:55 propoxyphene [From Darvon] Allergy Fainting Verified 07/15/18 14:55 aspirin [ASA] AdvReac See Verified 07/15/18 14:55 Comments codeine AdvReac Fainting Verified 07/15/18 14:55 gabapentin AdvReac Nausea Verified 07/15/18 14:55 Iodinated Contrast- Oral and AdvReac "knocked Verified 07/15/18 14:55 IV Dye out" [Iodinated Contrast Media - IV Dye] pentazocine [From Talwin] AdvReac Fainting Verified 07/15/18 14:55 Sulfa (Sulfonamide AdvReac Nausea Verified 07/15/18 14:55 Antibiotics) catgut Allergy See Uncoded 07/15/18 14:55 Comments Certification: Further, I certify that my clinical findings support that this patient is homebound (i.e. absences from home require considerable and taxing effort and are for medical reasons or orthodoxy services or infrequently or short duration when for other reasons) because: Homebound Reason: Patient requires assistance of a person or device to safely leave home, Leaving home requires considerable and taxing effort due to condition Attestation: My signature below is to certify that this patient is under my care and that I, or nurse practitioner, or a physician's pediatric assistant working with me, has a [id number] encounter with this patient.
[2018-07-22] MEDS ORDERED: Hydrocortisone 10 MG TABLET PO SCH (09:00)
== END 2018-07-21 18:11 | disposition home or self-care (01) | DRG 641 ==
LOC: EMEROOARM 15:39 → 2NENU 15:39 → SUATTDRO 19:53 → 2NENU 21:00 → SUATTDRO 07-14 16:01
PROVIDERS: ADMIT Internal Medicine; ATTEND Internal Medicine

== ENCOUNTER 2019-08-13 13:26 | Inpatient (IN) ==
[2019-08-13] MEDS ORDERED: Acetaminophen 325 MG TABLET PO PRN (16:52)
[2019-08-13] MEDS ORDERED: Ondansetron ODT 4 MG TAB.RAPDIS SL PRN (16:52)
[2019-08-13] MEDS: Azithromycin 500 MG in 0.9 % Sodium Chloride 250 ML IVPB SCH (18:50)
[2019-08-13] MEDS: Pantoprazole 40 MG VIAL IVP SCH (18:50)
[2019-08-13] MEDS: Ipratropium/Albuterol Neb 3 ML IH SCH ×2 (19:28→23:08)
[2019-08-13] MEDS ORDERED: Furosemide 40 MG/4 ML VIAL IVP SCH (21:00)
[2019-08-14] MEDS: Ipratropium/Albuterol Neb 3 ML IH SCH ×6 (03:43→23:59)
[2019-08-14 04:34] LABS: Basophils % 0.4 %; Eosinophils # 0.4 K/mcL (0.0-0.6); Eosinophils % 5.2 %; Hemoglobin 9.6 g/dL (11.5-15.4); Immature Granulocytes % 0.8 % (0-4); Lymphocytes # 1.1 K/mcL (0.6-4.6); Mean Corpuscular Hemoglobin 31.5 pg (28.0-33.3); Mean Corpuscular Volume 98.4 fL (83.0-100.0); Mean Platelet Volume 10.1 fL (9.4-12.4); Monocytes # 0.9 K/mcL (0.0-1.3); Monocytes % 10.3 %; Platelet Count 152 K/mcL (140-400); Red Blood Count 3.05 M/mcL (3.82-4.97); Red Cell Distribution Width 14.6 % (11.5-14.5); Segmented Neutrophils % 70.3 %; White Blood Count 8.5 K/mcL (4.3-11.1)
[2019-08-14 04:53] LABS: BUN/Creatinine Ratio 19 (6-26); Blood Urea Nitrogen 15 mg/dL (8-23); Calcium 8.3 mg/dL (8.6-10.3); Carbon Dioxide 35 mEq/L (23-29); Chloride 100 mEq/L (98-107); Glucose 100 mg/dL (70-105); Magnesium 1.8 mg/dL (1.6-2.6); Osmolality,Calculated 291 (280-300); Potassium 3.1 mEq/L (3.5-5.1); Sodium 140 mEq/L (136-145); eGFR For African Americans > 60 (> 60); eGFR For Non-African Americans > 60 (> 60)
[2019-08-14] MEDS: Pantoprazole 40 MG VIAL IVP SCH (06:22)
[2019-08-14] MEDS: predniSONE 20 MG TABLET PO SCH (09:04)
[2019-08-14] MEDS ORDERED: NON-FORMULARY MEDICATION 1 EACH EACH (Ropinirole Hcl [Requip] 5 MG) PO SCH (10:30)
[2019-08-14] MEDS: Potassium Chloride Elixir 20 MEQ/15 ML UDC PO SCH ×3 (11:07→21:10)
[2019-08-14] MEDS: Magnesium Oxide 400 MG TABLET PO SCH ×2 (12:08→21:10)
[2019-08-14] MEDS: *HR* Digoxin 0.125 MG TABLET PO SCH (12:08)
[2019-08-14] MEDS: DilTIAZem CD (24hr) 240 MG CAP.ER.24H PO SCH (12:08)
[2019-08-14] MEDS: Metoprolol XL (24 HR) Succ 50 MG TAB.ER.24H PO SCH (12:08)
[2019-08-14] MEDS: Furosemide 40 MG/4 ML VIAL IVP SCH (12:09)
[2019-08-14] MEDS: Azithromycin 500 MG in 0.9 % Sodium Chloride 250 ML IVPB SCH (18:24)
[2019-08-14 19:08] LABS: BUN/Creatinine Ratio 18 (6-26); Blood Urea Nitrogen 14 mg/dL (8-23); Calcium 8.7 mg/dL (8.6-10.3); Carbon Dioxide 36 mEq/L (23-29); Chloride 97 mEq/L (98-107); Glucose 213 mg/dL (70-105); Osmolality,Calculated 289 (280-300); Potassium 4.4 mEq/L (3.5-5.1); Sodium 136 mEq/L (136-145); eGFR For African Americans > 60 (> 60); eGFR For Non-African Americans > 60 (> 60)
[2019-08-14] MEDS: rOPINIRole 1 MG TABLET PO SCH (21:10)
[2019-08-14] MEDS: Primidone 50 MG TABLET PO SCH (21:10)
[2019-08-14] MEDS: clonazePAM 0.5 MG TABLET PO SCH (21:10)
[2019-08-15 03:13] LABS: Hematocrit 30.6 % (35.3-44.9); Hemoglobin 9.7 g/dL (11.5-15.4); Mean Corpuscular HGB Conc 31.7 g/dL (31.6-35.5); Mean Corpuscular Hemoglobin 31.1 pg (28.0-33.3); Mean Corpuscular Volume 98.1 fL (83.0-100.0); Mean Platelet Volume 10.2 fL (9.4-12.4); Platelet Count 184 K/mcL (140-400); Red Blood Count 3.12 M/mcL (3.82-4.97); Red Cell Distribution Width 14.6 % (11.5-14.5); White Blood Count 8.5 K/mcL (4.3-11.1)
[2019-08-15 03:42] LABS: BUN/Creatinine Ratio 23 (6-26); Blood Urea Nitrogen 16 mg/dL (8-23); Calcium 8.8 mg/dL (8.6-10.3); Carbon Dioxide 34 mEq/L (23-29); Chloride 98 mEq/L (98-107); Glucose 108 mg/dL (70-105); Magnesium 1.8 mg/dL (1.6-2.6); Osmolality,Calculated 286 (280-300); Sodium 137 mEq/L (136-145); eGFR For African Americans > 60 (> 60); eGFR For Non-African Americans > 60 (> 60)
[2019-08-15] MEDS: Ipratropium/Albuterol Neb 3 ML IH SCH ×3 (03:55→11:26)
[2019-08-15] MEDS: Metoprolol XL (24 HR) Succ 50 MG TAB.ER.24H PO SCH (09:03)
[2019-08-15] MEDS: *HR* Digoxin 0.125 MG TABLET PO SCH (09:03)
[2019-08-15] MEDS: rOPINIRole 1 MG TABLET PO SCH ×2 (09:03→22:03)
[2019-08-15] MEDS: Magnesium Oxide 400 MG TABLET PO SCH ×2 (09:04→22:03)
[2019-08-15] MEDS: predniSONE 20 MG TABLET PO SCH (09:04)
[2019-08-15] MEDS: DilTIAZem CD (24hr) 240 MG CAP.ER.24H PO SCH (09:04)
[2019-08-15] MEDS: Furosemide 40 MG/4 ML VIAL IVP SCH (09:04)
[2019-08-15] MEDS: Potassium Chloride Elixir 20 MEQ/15 ML UDC PO SCH (09:06)
[2019-08-15 15:28] LABS: BUN/Creatinine Ratio 19 (6-26); Blood Urea Nitrogen 15 mg/dL (8-23); Calcium 9.3 mg/dL (8.6-10.3); Carbon Dioxide 33 mEq/L (23-29); Chloride 97 mEq/L (98-107); Glucose 163 mg/dL (70-105); Osmolality,Calculated 286 (280-300); Potassium 4.8 mEq/L (3.5-5.1); Sodium 136 mEq/L (136-145); eGFR For African Americans > 60 (> 60); eGFR For Non-African Americans > 60 (> 60)
[2019-08-15] MEDS: *HR* Rivaroxaban 10 MG TABLET PO SCH (17:11)
[2019-08-15] MEDS: Azithromycin 500 MG in 0.9 % Sodium Chloride 250 ML IVPB SCH (18:35)
[2019-08-15] MEDS: Primidone 50 MG TABLET PO SCH (22:02)
[2019-08-15] MEDS: clonazePAM 0.5 MG TABLET PO SCH (22:03)
[2019-08-16 04:36] LABS: BUN/Creatinine Ratio 21 (6-26); Blood Urea Nitrogen 20 mg/dL (8-23); Calcium 9.4 mg/dL (8.6-10.3); Carbon Dioxide 34 mEq/L (23-29); Chloride 99 mEq/L (98-107); Glucose 136 mg/dL (70-105); Osmolality,Calculated 287 (280-300); Potassium 4.5 mEq/L (3.5-5.1); Sodium 136 mEq/L (136-145); eGFR For African Americans > 60 (> 60); eGFR For Non-African Americans 56 (> 60)
[2019-08-16] MEDS: rOPINIRole 1 MG TABLET PO SCH ×2 (07:38→21:08)
[2019-08-16] MEDS: Furosemide 40 MG TABLET PO SCH (07:39)
[2019-08-16] MEDS: DilTIAZem CD (24hr) 240 MG CAP.ER.24H PO SCH (07:39)
[2019-08-16] MEDS: *HR* Digoxin 0.125 MG TABLET PO SCH (07:39)
[2019-08-16] MEDS: Magnesium Oxide 400 MG TABLET PO SCH ×2 (07:39→21:09)
[2019-08-16] MEDS: Metoprolol XL (24 HR) Succ 50 MG TAB.ER.24H PO SCH (07:39)
[2019-08-16] MEDS: *HR* Rivaroxaban 10 MG TABLET PO SCH (17:05)
[2019-08-16] MEDS ORDERED: Azithromycin 250 MG TABLET PO SCH (19:00)
[2019-08-16] MEDS: clonazePAM 0.5 MG TABLET PO SCH (21:08)
[2019-08-16] MEDS: Primidone 50 MG TABLET PO SCH (21:09)
[2019-08-16] MEDS: Ipratropium/Albuterol Neb 3 ML IH PRN (23:47)
[2019-08-17 04:06] LABS: Basophils # 0.1 K/mcL (0.0-0.2); Basophils % 0.8 %; Eosinophils # 0.9 K/mcL (0.0-0.6); Eosinophils % 8.4 %; Hemoglobin 10.6 g/dL (11.5-15.4); Immature Granulocytes % 1.6 % (0-4); Lymphocytes % 9.4 %; Mean Corpuscular HGB Conc 31.2 g/dL (31.6-35.5); Mean Corpuscular Hemoglobin 31.5 pg (28.0-33.3); Mean Corpuscular Volume 100.9 fL (83.0-100.0); Monocytes # 1.1 K/mcL (0.0-1.3); Monocytes % 10.7 %; Platelet Count 212 K/mcL (140-400); Red Blood Count 3.37 M/mcL (3.82-4.97); Red Cell Distribution Width 14.6 % (11.5-14.5); Segmented Neutrophils % 69.1 %; White Blood Count 10.2 K/mcL (4.3-11.1)
[2019-08-17 04:46] LABS: BUN/Creatinine Ratio 21 (6-26); Blood Urea Nitrogen 18 mg/dL (8-23); Carbon Dioxide 35 mEq/L (23-29); Chloride 99 mEq/L (98-107); Glucose 121 mg/dL (70-105); Osmolality,Calculated 287 (280-300); Phosphorous 3.6 mg/dL (2.7-4.5); Sodium 137 mEq/L (136-145); eGFR For African Americans > 60 (> 60); eGFR For Non-African Americans > 60 (> 60)
[2019-08-17] MEDS: rOPINIRole 1 MG TABLET PO SCH (08:02)
[2019-08-17] MEDS: *HR* Digoxin 0.125 MG TABLET PO SCH (08:03)
[2019-08-17] MEDS: DilTIAZem CD (24hr) 240 MG CAP.ER.24H PO SCH (08:03)
[2019-08-17] MEDS: Furosemide 40 MG TABLET PO SCH (08:03)
[2019-08-17] MEDS: Metoprolol XL (24 HR) Succ 50 MG TAB.ER.24H PO SCH (08:03)
[2019-08-17] MEDS: Magnesium Oxide 400 MG TABLET PO SCH (08:03)
[2019-08-17] MEDS: Ipratropium/Albuterol Neb 3 ML IH PRN (08:11)
[2019-08-17 11:04] VITALS: BP 132/79
== END 2019-08-17 14:28 | disposition home or self-care (01) ==
LOC: 3ANU → SUATTDRO 08-14 18:39
PROVIDERS: ADMIT Internal Medicine; ATTEND Internal Medicine

== ENCOUNTER 2020-03-23 20:18 | Inpatient (IN) ==
[2020-03-23] MEDS ORDERED: Naloxone 0.4 MG/ML INJ IVP PRN (22:41)
[2020-03-23] MEDS ORDERED: 0.9 % Sodium Chloride 1,000 ML IVC SCH (22:45)
[2020-03-23] MEDS ORDERED: Ipratropium 1 PUFF INHALER IH PRN (23:26)
[2020-03-23] MEDS: cefTRIAXone 1,000 MG in 0.9 % Sodium Chloride Mini Bag 100 ML IVPB SCH (23:52)
[2020-03-24] MEDS: Ipratropium 1 PUFF INHALER IH SCH ×7 (01:09→23:14)
[2020-03-24 05:28] LABS: INR 1.3; Prothrombin Time 14.6 Seconds (9.4-12.1)
[2020-03-24 05:30] LABS: Activated Partial Thrombo Time 31.8 Seconds (26.0-36.0)
[2020-03-24 05:32] LABS: Basophils % 0.3 %; Hematocrit 36.6 % (35.3-44.9); Hemoglobin 11.3 g/dL (11.5-15.4); Lymphocytes # 0.5 K/mcL (0.6-4.6); Lymphocytes % 13.9 %; Mean Corpuscular HGB Conc 30.9 g/dL (31.6-35.5); Mean Corpuscular Hemoglobin 29.2 pg (28.0-33.3); Mean Corpuscular Volume 94.6 fL (83.0-100.0); Mean Platelet Volume 11.1 fL (9.4-12.4); Monocytes # 0.1 K/mcL (0.0-1.3); Monocytes % 3.1 %; Neutrophils # 2.9 K/mcL (1.6-8.9); Platelet Count 134 K/mcL (140-400); Red Blood Count 3.87 M/mcL (3.82-4.97); Red Cell Distribution Width 14.6 % (11.5-14.5); Segmented Neutrophils % 80.7 %; White Blood Count 3.5 K/mcL (4.3-11.1)
[2020-03-24 05:44] LABS: Lactate Dehydrogenase 186 Units/L (140-271)
[2020-03-24 05:45] LABS: Troponin I < 0.03 ng/mL (< 0.04)
[2020-03-24 05:46] LABS: Alanine Aminotransferase 7 Units/L (7-52); Albumin 3.1 g/dL (3.5-5.7); Albumin/Globulin Ratio 1.3 (1.1-2.2); Alkaline Phosphatase 88 Units/L (34-104); Aspartate Amino Transferase 20 Units/L (13-39); BUN/Creatinine Ratio 16 (6-26); Bilirubin,Total 0.3 mg/dL (0.3-1.0); Blood Urea Nitrogen 13 mg/dL (8-23); C-Reactive Protein 43 mg/L (Less than 10); Calcium 7.9 mg/dL (8.6-10.3); Carbon Dioxide 25 mEq/L (23-29); Chloride 100 mEq/L (98-107); Creatine Kinase 24 Units/L (30-223); Globulin 2.3 g/dL (2.4-3.5); Glucose 163 mg/dL (70-105); Osmolality,Calculated 282 (280-300); Potassium 3.7 mEq/L (3.5-5.1); Sodium 134 mEq/L (136-145); Total Protein 5.4 g/dL (6.4-8.9); eGFR For African Americans > 60 (> 60); eGFR For Non-African Americans > 60 (> 60)
[2020-03-24 06:02] LABS: Ferritin 241 ng/mL (10-120)
[2020-03-24] MEDS: Dexamethasone 4 MG/ML VIAL IVP SCH ×2 (07:39→19:10)
[2020-03-24] MEDS: DilTIAZem CD (24hr) 240 MG CAP.ER.24H PO SCH (11:33)
[2020-03-24] MEDS: *HR* Digoxin 0.125 MG TABLET PO SCH (11:33)
[2020-03-24] MEDS: Budesonide/Formoterol 160/4.5 1 PUFF INH IH SCH ×2 (11:57→19:49)
[2020-03-24] MEDS: *HR* Rivaroxaban 10 MG TABLET PO SCH (16:06)
[2020-03-24] MEDS: Azithromycin 500 MG in 0.9 % Sodium Chloride 250 ML IVPB SCH (20:15)
[2020-03-24] MEDS: Primidone 50 MG TABLET PO SCH (20:16)
[2020-03-24] MEDS: (Ropinirole Hcl [Requip Xl] 4 MG) PO SCH (20:16)
[2020-03-24] MEDS: Magnesium Oxide 400 MG TABLET PO SCH (20:16)
[2020-03-24] MEDS: clonazePAM 0.5 MG TABLET PO SCH (20:16)
[2020-03-24] MEDS: cefTRIAXone 1,000 MG in 0.9 % Sodium Chloride Mini Bag 100 ML IVPB SCH (23:30)
[2020-03-25] MEDS: Ipratropium 1 PUFF INHALER IH SCH ×5 (03:21→19:21)
[2020-03-25 06:13] LABS: Basophils % 0.2 %; Hematocrit 34.6 % (35.3-44.9); Hemoglobin 10.5 g/dL (11.5-15.4); Immature Granulocytes % 1.2 % (0-4); Lymphocytes # 0.3 K/mcL (0.6-4.6); Lymphocytes % 5.9 %; Mean Corpuscular HGB Conc 30.3 g/dL (31.6-35.5); Mean Corpuscular Hemoglobin 28.2 pg (28.0-33.3); Mean Platelet Volume 10.7 fL (9.4-12.4); Monocytes # 0.4 K/mcL (0.0-1.3); Monocytes % 8.2 %; Neutrophils # 3.6 K/mcL (1.6-8.9); Platelet Count 152 K/mcL (140-400); Red Blood Count 3.72 M/mcL (3.82-4.97); Red Cell Distribution Width 14.6 % (11.5-14.5); Segmented Neutrophils % 84.5 %; White Blood Count 4.3 K/mcL (4.3-11.1)
[2020-03-25 06:33] LABS: BUN/Creatinine Ratio 21 (6-26); Blood Urea Nitrogen 15 mg/dL (8-23); Calcium 8.7 mg/dL (8.6-10.3); Carbon Dioxide 30 mEq/L (23-29); Chloride 101 mEq/L (98-107); Glucose 198 mg/dL (70-105); Osmolality,Calculated 288 (280-300); Potassium 3.4 mEq/L (3.5-5.1); Sodium 136 mEq/L (136-145); eGFR For African Americans > 60 (> 60); eGFR For Non-African Americans > 60 (> 60)
[2020-03-25] MEDS: Dexamethasone 4 MG/ML VIAL IVP SCH (07:01)
[2020-03-25] MEDS: DilTIAZem CD (24hr) 240 MG CAP.ER.24H PO SCH (07:02)
[2020-03-25] MEDS: (Ropinirole Hcl [Requip Xl] 4 MG) PO SCH ×2 (07:02→21:14)
[2020-03-25] MEDS: Magnesium Oxide 400 MG TABLET PO SCH ×2 (07:02→20:06)
[2020-03-25] MEDS: *HR* Digoxin 0.125 MG TABLET PO SCH (07:02)
[2020-03-25] MEDS: Furosemide 40 MG TABLET PO SCH (07:05)
[2020-03-25] MEDS: Cholecalciferol (D-3) 1,000 UNIT (25MCG) TABLET PO SCH (07:05)
[2020-03-25] MEDS: Metoprolol XL (24 HR) Succ 50 MG TAB.ER.24H PO SCH ×2 (07:05→07:06)
[2020-03-25] MEDS: Budesonide/Formoterol 160/4.5 1 PUFF INH IH SCH ×2 (07:20→19:21)
[2020-03-25] MEDS ORDERED: Potassium Chloride Elixir 20 MEQ/15 ML UDC PO ONE (07:29)
[2020-03-25] MEDS: *HR* Rivaroxaban 10 MG TABLET PO SCH (16:17)
[2020-03-25] MEDS: Azithromycin 500 MG in 0.9 % Sodium Chloride 250 ML IVPB SCH (20:06)
[2020-03-25] MEDS: clonazePAM 0.5 MG TABLET PO SCH (20:06)
[2020-03-25] MEDS: Primidone 50 MG TABLET PO SCH (20:06)
[2020-03-26] MEDS: Ipratropium 1 PUFF INHALER IH SCH ×4 (00:03→12:33)
[2020-03-26 01:44] LABS: Basophils % 0.3 %; Hematocrit 34.1 % (35.3-44.9); Hemoglobin 10.3 g/dL (11.5-15.4); Immature Granulocytes % 1.2 % (0-4); Lymphocytes # 0.4 K/mcL (0.6-4.6); Lymphocytes % 4.8 %; Mean Corpuscular HGB Conc 30.2 g/dL (31.6-35.5); Mean Corpuscular Hemoglobin 28.1 pg (28.0-33.3); Mean Corpuscular Volume 92.9 fL (83.0-100.0); Mean Platelet Volume 10.3 fL (9.4-12.4); Monocytes # 0.7 K/mcL (0.0-1.3); Monocytes % 9.9 %; Platelet Count 171 K/mcL (140-400); Red Blood Count 3.67 M/mcL (3.82-4.97); Red Cell Distribution Width 14.8 % (11.5-14.5); Segmented Neutrophils % 83.8 %
[2020-03-26 01:57] LABS: Neutrophils # 6.3 K/mcL (1.6-8.9); White Blood Count 7.5 K/mcL (4.3-11.1)
[2020-03-26 02:09] LABS: Alanine Aminotransferase 12 Units/L (7-52); Albumin 3.2 g/dL (3.5-5.7); Albumin/Globulin Ratio 1.4 (1.1-2.2); Alkaline Phosphatase 83 Units/L (34-104); Aspartate Amino Transferase 25 Units/L (13-39); BUN/Creatinine Ratio 25 (6-26); Bilirubin,Total 0.3 mg/dL (0.3-1.0); Blood Urea Nitrogen 17 mg/dL (8-23); C-Reactive Protein 11 mg/L (Less than 10); Calcium 8.8 mg/dL (8.6-10.3); Carbon Dioxide 25 mEq/L (23-29); Chloride 104 mEq/L (98-107); Ferritin 178 ng/mL (10-120); Globulin 2.3 g/dL (2.4-3.5); Glucose 155 mg/dL (70-105); Lactate Dehydrogenase 272 Units/L (140-271); Osmolality,Calculated 289 (280-300); Potassium 4.4 mEq/L (3.5-5.1); Sodium 137 mEq/L (136-145); Total Protein 5.5 g/dL (6.4-8.9); eGFR For African Americans > 60 (> 60); eGFR For Non-African Americans > 60 (> 60)
[2020-03-26] MEDS: Metoprolol XL (24 HR) Succ 50 MG TAB.ER.24H PO SCH (08:32)
[2020-03-26] MEDS: Magnesium Oxide 400 MG TABLET PO SCH (08:32)
[2020-03-26] MEDS: DilTIAZem CD (24hr) 240 MG CAP.ER.24H PO SCH (08:32)
[2020-03-26] MEDS: Cholecalciferol (D-3) 1,000 UNIT (25MCG) TABLET PO SCH (08:32)
[2020-03-26] MEDS: *HR* Digoxin 0.125 MG TABLET PO SCH (08:32)
[2020-03-26] MEDS: (Ropinirole Hcl [Requip Xl] 4 MG) PO SCH (08:33)
[2020-03-26] MEDS: Furosemide 40 MG TABLET PO SCH (08:33)
[2020-03-26 08:58] VITALS: BP 122/72
[2020-03-26] MEDS ORDERED: Dexamethasone 4 MG/ML VIAL IVP SCH (09:00)
[2020-03-26] MEDS: Budesonide/Formoterol 160/4.5 1 PUFF INH IH SCH (12:33)
[2020-03-26] MEDS ORDERED: Azithromycin 250 MG TABLET PO SCH (20:00)
== END 2020-03-26 13:14 | disposition home health service (06) | DRG 871 ==
LOC: 2NENU → SUATTDRO 22:01 → 2NENU 03-25 20:02
PROVIDERS: ADMIT Student in an Organized Health Care Education/Training Program; ATTEND Family Medicine